=== PATIENT | female | born 1945 | race Caucasian/White ===

== ENCOUNTER 2017-09-07 02:16 | Inpatient (IN) ==
--- NOTE | 2017-09-07 02:48 | Emergency Department Note ---
Abdominal Pain HPI - General Chief Complaint: Abdominal Pain Stated Complaint: abdominal pain Time Seen by Provider: 09/07/17 02:45 Source: patient Mode of arrival: ambulatory Limitations: no limitations - History of Present Illness HPI Narrative: Has had abdominal pain midepigastric area for about 24 hours now. Occasionally radiates to the back, states she had similar pain which had pancreatitis only that she had gallstone pancreatitis and her gallbladder now is gone. Slight nausea but no vomiting, denies diarrhea had a bowel movement about 20 minutes ago, not bloody no history of any fevers, pain became increasingly uncomfortable she took one half of her oxycodone tablets but still did not help with the pain. No chest pain no shortness of breath, she does have a history of A. fib - Related Data Home Medications Medication Instructions Recorded Confirmed cholecalciferol (vitamin D3) 2,000 2,000 unit PO QDAY tab 04/25/15 05/21/17 unit tablet cyanocobalamin (vit B-12) 1,000 1,000 mcg PO QDAY tab 04/25/15 05/21/17 mcg tablet digoxin 125 mcg tablet 125 mcg PO .COMPLEX tab 04/25/15 07/23/17 Warfarin [Coumadin] 2.5 mg PO QDAY tab 11/15/16 07/23/17 doxazosin 1 mg tablet 1 mg PO QHS 04/28/17 07/23/17 furosemide 20 mg tablet 20 mg PO QDAY 04/28/17 07/23/17 metformin ER 500 mg 500 mg PO QDAY 04/28/17 07/23/17 tablet,extended release 24 hr potassium chloride ER 10 mEq 10 meq PO QDAY 04/28/17 07/23/17 capsule,extended release pramipexole 0.25 mg tablet 0.125 mg PO BID tab 04/28/17 07/23/17 ferrous sulfate ER 325 mg (65 mg 325 mg PO QDAY cap 05/21/17 07/23/17 iron) capsule,extended release Previous Rx's Medication Instructions Recorded omega 9-vlw-wex-fish oil 1,200 mg 2 cap PO BID 90 Days #360 cap 10/10/15 (144 mg-216 mg) capsule pen needle, diabetic 31 gauge x See Dose Instructions .ROUTE 09/10/1603/18" .MEDSUPPLY #50 each lancets See Dose Instructions .ROUTE 12/03/16 .MEDSUPPLY #50 each blood sugar diagnostic strips See Dose Instructions .ROUTE 04/03/17 .MEDSUPPLY #100 each carvedilol 6.25 mg tablet 6.25 mg PO BID #180 tab 05/02/17 escitalopram 10 mg tablet 5 mg PO .qod #90 tab 05/21/17 amlodipine 5 mg-olmesartan 20 mg 1 tab PO QDAY #60 tab 05/22/17 tablet insulin glargine 100 unit/mL (3 60 unit SUB-Q QHS #21 ml 05/26/17 mL) subcutaneous pen fenofibrate 160 mg tablet 160 mg PO QDAY #90 tab 05/30/17 omeprazole 20 mg capsule,delayed 20 mg PO QDAY 90 Days #90 cap 06/03/17 release ezetimibe 10 mg tablet 10 mg PO QDAY #90 tab 06/23/17 newatj-ckcbhhrz-anhqkhw 1 cap PO TID #240 cap 07/23/17 24,000-76,000-120,000 unit capsule,delayed rel glipizide 10 mg tablet 15 mg PO QDAY #90 tab 07/29/17 Allergies Allergy/AdvReac Type Severity Reaction Status Date / Time Pxwpvky-Chu-Qeg Reductase AdvReac Severe Myalgias Verified 09/07/17 02:20 Inhibitor lisinopril AdvReac Intermediate cough Verified 09/07/17 02:20 Sulfa (Sulfonamide AdvReac Mild Rash Verified 09/07/17 02:20 Antibiotics) Review of Systems All systems ED: reviewed and negative except as stated. Abdominal Pain PMH - Past Medical History Medical history: Reports: arthritis, atrial fibrillation, diabetes, hypertension Surgical history ED: Reports: appendectomy, cholecystectomy, hysterectomy, knee replacement, orthopedic, other - Social History Smoking status: Never smoker Alcohol use: Reports: None Drug use: Reports: none Physical Exam Limitations: no limitations General appearance: alert, in no apparent distress Head: atraumatic, normocephalic Eye: Present: normal appearance, PERRL, EOMI. Absent: scleral icterus, conjunctival injection, nystagmus ENT: normal exam, normal oropharynx, mucous membranes moist Neck: Present: normal inspection, full ROM, trachea midline. Absent: tenderness , meningismus Chest: Present: normal inspection, symmetric chest wall rise Respiratory: Present: normal lung sounds bilaterally. Absent: respiratory distress Cardiovascular: Present: regular rate, normal rhythm Abdominal: Present: soft, tenderness, guarding, normal bowel sounds. Absent: distention, rebound Abdominal tenderness: Present: epigastrium, mild Extremities: Present: normal inspection, full ROM, normal capillary refill Back: Present: normal inspection. Absent: CVA tenderness (R), CVA tenderness (L ) Neurological: Present: alert, oriented X3, CN II-XII intact Psychiatric: Present: normal affect Skin: Present: warm, dry, intact. Absent: rash Course Vital Signs Temperature 96.9 F L 09/07/17 02:17 Pulse Rate 88 09/07/17 02:17 Respiratory Rate 20 09/07/17 02:17 Blood Pressure 133/111 09/07/17 02:17 Pulse Oximetry (%) 98 09/07/17 02:17 Temperature 96.9 F L 09/07/17 02:17 Pulse Rate 88 09/07/17 02:17 Respiratory Rate 20 09/07/17 02:17 Blood Pressure 133/111 09/07/17 02:17 Pulse Oximetry (%) 98 09/07/17 02:17 Abdominal Pain - MDM Narrative Medical decision making narrative: The pain was resolved with 2 mg of morphine. She does state that she ate some food yesterday including some meatballs for lunch. She does have pancreatitis with a lipase of over 800. Repeat abdominal exam does still reveal some midepigastric abdominal tenderness consistent with her pancreatitis. Plan is nothing by mouth status with her pancreatitis, IV fluids, glucose management. Follow-up ultrasound when available. Discussed with Dr. Cannon. - Lab Data Result diagrams: 09/07/17 02:40 09/07/17 02:40 Lab Results 09/07/17 09/07/17 09/07/17 Range/Units 02:40 02:40 02:40 WBC 9.6 (4.5-11.0) K/mcL RBC 4.91 (4.00-5.20) M/mcL Hgb 14.0 (12.0-15.0) g/dL Hct 42.1 (36.0-48.0) % MCV 85.8 (80.0-100.0) fL MCH 28.5 (26.0-34.0) pg MCHC 33.2 (31.0-36.0) g/dL RDW 13.4 (11.5-14.5) % Plt Count 271 (140-440) K/mcL MPV 9.4 (7.4-10.4) fL Gran % 65.1 (38.0-78.0) % Lymph % (Auto) 23.4 (15.5-49.0) % [place] % (Auto) 8.3 (1.0-12.0) % Eos % (Auto) 2.9 (0.0-7.0) % Baso % (Auto) 0.3 (0.0-2.0) % Gran # 6.2 (1.8-8.0) K/mcL Lymph # (Auto) 2.2 (1.5-4.8) K/mcL [place] # (Auto) 0.8 (0.1-0.9) K/mcL Eos # (Auto) 0.3 (0.0-0.7) K/mcL Baso # (Auto) 0 (0.0-0.3) K/mcL Sodium 135 (133-145) mmol/L Potassium 4.0 (3.3-5.1) mmol/L Chloride 98 (96-108) mmol/L Carbon Dioxide 23 (22-30) mmol/L Anion Gap 14.0 (8-16) BUN 15 (8-23) mg/dl Creatinine 0.6 (0.6-1.1) mg/dl GFR Calculation 92 Glucose 212 H (70-105) mg/dL Calcium 9.5 (8.6-10.4) mg/dl Total Bilirubin 0.6 (0.0-1.0) mg/dL AST 17 (0-37) U/l ALT 24 (0-40) U/l Alkaline Phosphatase 41 (39-117) U/L C-Reactive Protein 0.8 (0.0-0.8) mg/dl Total Protein 6.8 (5.9-8.4) gm/dL Albumin 4.1 (3.2-5.2) gm/dL Globulin 2.7 (2.2-3.7) gm/dL Albumin/Globulin Ratio 1.5 (1.0-2.3) Amylase 160 H (28-100) U/L Lipase 807 H (7-60) U/L Urine Color Urine Appearance Urine pH (5.0-9.0) Ur Specific [place] (1.000-1.035) Urine Protein (NEG) mg/dL Urine Glucose (UA) (NEG) mg/dL Urine Ketones (NEG) mg/dL Urine Occult Blood (<0.03) mg/dL Urine Nitrate (NEG) Urine Bilirubin (NEG) mg/dL Urine Urobilinogen (NEG) mg/dL Ur Leukocyte Esterase (NEG) /uL Urine RBC (0-1) /hpf Urine WBC (0-4) /hpf Ur Squamous Epith Cells (0-4) /hpf Ur Transition Epith Cell (0-2) /hpf Urine Bacteria (0) /hpf Urine Mucus (0) /hpf Ur Culture Indicated? 09/07/17 Range/Units 03:10 WBC (4.5-11.0) K/mcL RBC (4.00-5.20) M/mcL Hgb (12.0-15.0) g/dL Hct (36.0-48.0) % MCV (80.0-100.0) fL MCH (26.0-34.0) pg MCHC (31.0-36.0) g/dL RDW (11.5-14.5) % Plt Count (140-440) K/mcL MPV (7.4-10.4) fL Gran % (38.0-78.0) % Lymph % (Auto) (15.5-49.0) % [place] % (Auto) (1.0-12.0) % Eos % (Auto) (0.0-7.0) % Baso % (Auto) (0.0-2.0) % Gran # (1.8-8.0) K/mcL Lymph # (Auto) (1.5-4.8) K/mcL [place] # (Auto) (0.1-0.9) K/mcL Eos # (Auto) (0.0-0.7) K/mcL Baso # (Auto) (0.0-0.3) K/mcL Sodium (133-145) mmol/L Potassium (3.3-5.1) mmol/L Chloride (96-108) mmol/L Carbon Dioxide (22-30) mmol/L Anion Gap (8-16) BUN (8-23) mg/dl Creatinine (0.6-1.1) mg/dl GFR Calculation Glucose (70-105) mg/dL Calcium (8.6-10.4) mg/dl Total Bilirubin (0.0-1.0) mg/dL AST (0-37) U/l ALT (0-40) U/l Alkaline Phosphatase (39-117) U/L C-Reactive Protein (0.0-0.8) mg/dl Total Protein (5.9-8.4) gm/dL Albumin (3.2-5.2) gm/dL Globulin (2.2-3.7) gm/dL Albumin/Globulin Ratio (1.0-2.3) Amylase (28-100) U/L Lipase (7-60) U/L Urine Color Yellow Urine Appearance Hazy Urine pH 7.0 (5.0-9.0) Ur Specific [place] 1.025 (1.000-1.035) Urine Protein Neg (NEG) mg/dL Urine Glucose (UA) 150 A (NEG) mg/dL Urine Ketones 5/tr A (NEG) mg/dL Urine Occult Blood Neg (<0.03) mg/dL Urine Nitrate Neg (NEG) Urine Bilirubin Neg (NEG) mg/dL Urine Urobilinogen 2.0 A (NEG) mg/dL Ur Leukocyte Esterase Neg (NEG) /uL Urine RBC 0 (0-1) /hpf Urine WBC 3 (0-4) /hpf Ur Squamous Epith Cells 9 H (0-4) /hpf Ur Transition Epith Cell < 1 (0-2) /hpf Urine Bacteria Few A (0) /hpf Urine Mucus Few (0) /hpf Ur Culture Indicated? No Disposition Pt seen by DEVELOPMENT EXECUTIVE/PA only: No Clinical Impression: Pancreatitis Disposition: Xfer As Outpt/Obs ([facility]) Condition: Good Referrals: Prakash Hernandez MD [Primary Care Provider] -
[2017-09-07] MEDS ORDERED: ONDANSETRON 4 MG/2 ML VIAL IV ONE (02:51)
[2017-09-07] MEDS ORDERED: PANTOPRAZOLE 40 MG VIAL IV ONE (02:51)
[2017-09-07] MEDS ORDERED: LACTATED RINGERS 1,000 ML IV ONE (02:53)
[2017-09-07 03:12] LABS: Basophils # (Auto) 0 K/mcL (0.0-0.3); Basophils % (Auto) 0.3 % (0.0-2.0); Eosinophils # (Auto) 0.3 K/mcL (0.0-0.7); Eosinophils % (Auto) 2.9 % (0.0-7.0); Granulocytes % (Auto) 65.1 % (38.0-78.0); Lymphocytes # (Auto) 2.2 K/mcL (1.5-4.8); Lymphocytes % (Auto) 23.4 % (15.5-49.0); Mean Cell Volume 85.8 fL (80.0-100.0); Mean Corpuscular HGB Conc 33.2 g/dL (31.0-36.0); Mean Corpuscular Hemoglobin 28.5 pg (26.0-34.0); Monocytes # (Auto) 0.8 K/mcL (0.1-0.9); Monocytes % (Auto) 8.3 % (1.0-12.0); Platelet Count 271 K/mcL (140-440); RBC 4.91 M/mcL (4.00-5.20); Red Cell Distribution Width 13.4 % (11.5-14.5)
[2017-09-07 03:32] LABS: C-Reactive Protein 0.8 mg/dl (0.0-0.8)
[2017-09-07 03:33] LABS: ALT/SGPT 24 U/l (0-40); Albumin 4.1 gm/dL (3.2-5.2); Albumin/Globulin Ratio 1.5 (1.0-2.3); Alkaline Phosphatase 41 U/L (39-117); Blood Urea Nitrogen 15 mg/dl (8-23)
[2017-09-07 03:47] LABS: Appearance,Urine HAZY; Bacteria,Urine FEW /hpf (0); Bilirubin,Urine NEG (NEG); Color,Urine YELLOW; Glucose,Urine (UA) 150 mg/dL (NEG); Leukocyte Esterase,Urine NEG /uL (NEG); Mucus,Urine FEW /hpf (0); Nitrate,Urine NEG (NEG); Protein,Urine NEG (NEG); Specific Gravity,Urine 1.025 (1.000-1.035); Urine Blood NEG mg/dL (<0.03); Urine RBC 0 /hpf (0-1); Urine Squamous Epithelial Cell 9 /hpf (0-4); Urine Transitional Epi Cells < 1 /hpf (0-2); Urine WBC 3 /hpf (0-4)
[2017-09-07] MEDS ORDERED: NALOXONE HCL 0.4 MG/ML VIAL IV PRN (05:10)
[2017-09-07] MEDS ORDERED: LACTATED RINGERS 1,000 ML IV SCH (05:15)
[2017-09-07] MEDS ORDERED: IOPAMIDOL 100 ML BOTTLE IV ONE (05:31)
[2017-09-07] MEDS ORDERED: CALCIUM CARBONATE 500 MG TAB.CHEW CHEWED PRN (07:12)
[2017-09-07] MEDS ORDERED: ONDANSETRON 4 MG/2 ML VIAL IV PRN ×2 (07:12→07:26)
[2017-09-07] MEDS ORDERED: DOCUSATE SODIUM 100 MG CAPSULE PO PRN (07:12)
[2017-09-07] MEDS ORDERED: ACETAMINOPHEN 325 MG TABLET PO PRN (07:12)
[2017-09-07] MEDS ORDERED: MAGNESIUM HYDROXIDE 30 ML ORAL.SUSP PO PRN (07:12)
[2017-09-07] MEDS ORDERED: DEXTROSE 50% 50 ML VIAL IV PRN (07:12)
--- NOTE | 2017-09-07 07:35 | Internal Med History&Physical ---
Medical - H&P: HPI Patient information: Note initiated : 09/07/17 at 7:30 am Service Date, if different from initiated Date: [] Patient: Shweta Rodriguez 71 y/o F admitted on 09/07/17 for abdominal pain. Chief Complaint: [] History of present illness: Ms. Rodriguez is a 71 year old female with history of multiple chronic medical problems. She says she had an episode of pancreatitis 4 or 5 years ago, that was reportedly caused by stones. She had a pancreatic stent placed and what she describes as lithotripsy. She then had a stent removed, but suffered in laceration at that time which led to bacteremia. She says she has not had another episode of pancreatitis since then. Yesterday she was at a wedding, and began to experience epigastric discomfort. This continued to progress over the course of the evening, so she presented to the emergency room early this morning. She has had significant nausea but no vomiting. She denies fever or chills. She has felt a little bit dizzy. Otherwise she notes chronically blurry vision, which is unchanged. She also tends to have chronic direct diarrhea since her cholecystectomy, but says that has been better since she has been treated with oxycodone for her ankle. 7 weeks ago she had surgery on her Achilles tendon, and has had her foot in a boot ever since. She notes she does have some mild dyspnea with exertion when trying to drag around the boot. She denies fever or chills, headaches, new eye or ear symptoms, swollen glands, chest pain or palpitations, changes in breathing, dysuria. ER evaluation showed markedly elevated lipase. She is now admitted for bowel rest and IV fluids. As well as pain medications. Medical History Mild obstructive sleep apnea, June/2017 Anemia (Chronic 12/13/14) low iron stores, ferritin 32, advised replacement Atrial fibrillation (Chronic) Chronic insomnia (Chronic) Depression (Chronic) -No ssri due to coumadin interactions. Diabetes mellitus, type II (Chronic) Diarrhea (Chronic) Gastroesophageal reflux (Chronic 11/17/13) Hypercalcemia (Chronic) Hyperlipidemia (Chronic) unable to tolerate statin. Hypertension, essential, benign (Chronic) Insomnia (Chronic 12/13/14) Menopausal and postmenopausal disorder (Chronic) Pancreatitis (Chronic 11/17/13) acute on chronic duct stones, increase creon for now. Postsurgical nonabsorption (Chronic) MALABSORPTION POST LAP-TAI Uncontrolled diabetes mellitus (Chronic) Abdominal pain of multiple sites (Inactive) 04/07/2015-Trinh, much better, Vasculitis panel neg, esr crp neg. Ankle fracture, left (Inactive) DVT (deep venous thrombosis) (Inactive 11/17/13) PROPHALYXIS Leukocytosis (Inactive) 04/07/15 Trinh Weight gain (Inactive 12/13/14) Surgical History History of adenoidectomy (Inactive) History of appendectomy (Inactive) History of cholecystectomy (Inactive) History of colonoscopy (Inactive 04/11/15) colitis involving only the cecum History of hysterectomy (Inactive) History of left knee replacement (Inactive) History of open reduction and internal fixation (ORIF) procedure (Inactive) L ANKLE History of tonsillectomy (Inactive) Status post arthroscopic surgery of right knee (Inactive) Medication List amlodipine-olmesartan 5-20 mg 1 tab PO QDAY blood sugar diagnostic strips (Accu-Chek SmartView Test Strips) As directed, Test blood sugars once daily carvedilol 6.25 mg PO BID cholecalciferol (vitamin D3) 2,000 units PO QDAY cyanocobalamin (vit B-12) 1,000 mcg PO QDAY digoxin 125 mcg PO 1 per day skip FRIDAY doxazosin 1 mg PO QHS escitalopram 5 mg (1/2 x 10 mg) PO .qod ezetimibe (Zetia) 10 mg PO QDAY fenofibrate 160 mg PO QDAY ferrous sulfate ER 325 mg PO QDAY furosemide 20 mg PO QDAY glipizide (Glucotrol) 10 mg PO BID 90 days glipizide Take one tablet in the morning and 0.5 mg in the evening by mouth. insulin glargine (Lantus Solostar) 60 units (0.6 mL) Sub-Q QHS lancets use once a day mdwcxf-ihszhhjo-gvuixjb 24,000-76,000 -120,000 unit 1 cap PO BID metformin ER 500 mg PO QDAY omega 2-ahb-dus-fish oil 1,200 (144-216) mg 2 caps PO BID 90 days omeprazole 20 mg PO QDAY 90 days potassium chloride ER 10 mEq PO QDAY pramipexole 0.125 mg PO BID warfarin 2.5 mg PO QDAY Allergies/Adverse Reactions Zmuwjpn-Yjg-Xdm Reductase Inhibitor Adverse Reaction (Severe, Verified 07/23/17 10:43) Myalgias lisinopril Adverse Reaction (Intermediate, Verified 07/23/17 10:43) cough Sulfa (Sulfonamide Antibiotics) Adverse Reaction (Mild, Verified 07/23/17 10:43) Rash Family History Unknown Malignant neoplasm of breast Mother , 79 Chronic obstructive pulmonary disease Father of unknown cause bio unknown Social History The patient is and lives with her . She has lots of family in town. She was at the wedding of 1 of her daughters yesterday. She does not use tobacco, alcohol, drugs. Medical - H&P: Meds Home Medications Medication Instructions Recorded Confirmed Type cholecalciferol (vitamin D3) 2,000 2,000 unit PO QDAY tab 04/25/15 09/07/17 History unit tablet cyanocobalamin (vit B-12) 1,000 1,000 mcg PO QDAY tab 04/25/15 09/07/17 History mcg tablet digoxin 125 mcg tablet 125 mcg PO 1700 tab 04/25/15 09/07/17 History omega 8-pvc-zbt-fish oil 1,200 mg 2 cap PO BID 90 Days #360 cap 10/10/15 Rx (144 mg-216 mg) capsule Warfarin [Coumadin] 2.5 mg PO QDAY tab 11/15/16 09/07/17 History doxazosin 1 mg tablet 1 mg PO QHS 04/28/17 09/07/17 History furosemide 20 mg tablet 20 mg PO QDAY 04/28/17 09/07/17 History metformin ER 500 mg 500 mg PO QDAY 04/28/17 09/07/17 History tablet,extended release 24 hr potassium chloride ER 10 mEq 10 meq PO QDAY 04/28/17 09/07/17 History capsule,extended release pramipexole 0.25 mg tablet 0.125 mg PO HS tab 04/28/17 09/07/17 History carvedilol 6.25 mg tablet 6.25 mg PO BID #180 tab 05/02/17 09/07/17 Rx ferrous sulfate ER 325 mg (65 mg 325 mg PO QDAY cap 05/21/17 09/07/17 History iron) capsule,extended release amlodipine 5 mg-olmesartan 20 mg 1 tab PO QDAY #60 tab 05/22/17 09/07/17 Rx tablet insulin glargine 100 unit/mL (3 60 unit SUB-Q QHS #21 ml 05/26/17 09/07/17 Rx mL) subcutaneous pen fenofibrate 160 mg tablet 160 mg PO QDAY #90 tab 05/30/17 09/07/17 Rx ezetimibe 10 mg tablet 10 mg PO QDAY #90 tab 06/23/17 09/07/17 Rx goqnau-bigdrdvz-ownsygx 1 cap PO TID #240 cap 07/23/17 09/07/17 Rx 24,000-76,000-120,000 unit capsule,delayed rel Escitalopram Oxalate [Lexapro] 5 mg PO QDAY 09/07/17 09/07/17 History Omeprazole [Prilosec] 20 mg PO 1700 09/07/17 09/07/17 History glipiZIDE [Glucotrol] 5 mg PO HS 09/07/17 09/07/17 History glipiZIDE [Glucotrol] 10 mg PO QDAY 09/07/17 09/07/17 History Allergies Allergy/AdvReac Type Severity Reaction Status Date / Time Lkytfhg-Oth-Ars Reductase AdvReac Severe Myalgias Verified 09/07/17 02:20 Inhibitor lisinopril AdvReac Intermediate cough Verified 09/07/17 02:20 Sulfa (Sulfonamide AdvReac Mild Rash Verified 09/07/17 02:20 Antibiotics) Medical - H&P: Exam - Constitutional Vitals: Temp Pulse Resp BP Pulse Ox 98.8 F 75 16 132/88 94 09/07/17 07:19 09/07/17 07:19 09/07/17 07:19 09/07/17 07:19 09/07/17 07:19 On exam, she is a little bit diaphoretic. She notes the IV morphine makes her feel clammy. It does help her pain however. Head: Normocephalic, atraumatic. Ears: TMs and canals are clear. Eyes: PERRLA, EOMI, anicteric. Pharynx: Pharynx is clear. Mucosa appears normal. Neck: Is supple, without lymphadenopathy, JVD, thyromegaly. She may have soft carotid bruits. Cardiac exam: Shows regular rate and rhythm with normal S1 and S2, without murmurs, rubs, gallops. Lungs have a few crackles at the bases, but are otherwise clear, without rales or rhonchi. Abdomen: Is obese, but soft. She does have some guarding. She has moderate tenderness in the epigastric area. Bowel sounds are fairly active. No masses are appreciated. Extremities: Show no significant edema, cyanosis, clubbing. Neurologic exam: Is grossly nonfocal. Medical - H&P: Reslt - Labs CBC & Chem 7: 09/07/17 02:40 09/07/17 11:48 Labs: Short CBC 09/07/17 Range/Units 02:40 WBC 9.6 (4.5-11.0) K/mcL Hgb 14.0 (12.0-15.0) g/dL Hct 42.1 (36.0-48.0) % Plt Count 271 (140-440) K/mcL BMP 09/07/17 02:40 Sodium 135 Potassium 4.0 Chloride 98 Carbon Dioxide 23 BUN 15 Creatinine 0.6 Glucose 212 H Calcium 9.5 Liver Function 09/07/17 Range/Units 02:40 Total Bilirubin 0.6 (0.0-1.0) mg/dL AST 17 (0-37) U/l ALT 24 (0-40) U/l Alkaline Phosphatase 41 (39-117) U/L Albumin 4.1 (3.2-5.2) gm/dL Urine 09/07/17 Range/Units 03:10 Urine Color Yellow Urine Appearance Hazy Urine pH 7.0 (5.0-9.0) Ur Specific [place] 1.025 (1.000-1.035) Urine Protein Neg (NEG) mg/dL Urine Glucose (UA) 150 A (NEG) mg/dL September 07: Abdominal ultrasound: IMPRESSION: 1. Proximal common bile duct is only slightly dilated 7 mm. Mid and distal common bile duct not visualized. 2. Suspect moderate dilatation of pancreatic duct ranging up to 9 mm with two possible stones , six and 8 mm, within the duct. Visualization is suboptimal on ultrasound. If the patient still has a pancreatic stent, it may not be functional. Suggest: abdominal CT - pancreatic protocol for more specific evaluation. Pro time: 18, INR is 1.5. Amylase 160 Lipase 807 Echocardiogram, 10, 25, 2016: CONCLUSION: Mild concentric LVH with normal systolic performance. Ejection fraction 65%. Mitral anular calcification. Moderate LA enlargement. Minimal and probably passive pulmonary hypertension/moderate RA enlargement. Medical - H&P: A/P (1) Acute on chronic pancreatitis Current visit: Yes Status: Acute (2) Uncontrolled diabetes mellitus Current visit: No Status: Chronic (3) Hypertension, essential, benign Problem details: Current visit: No Status: Chronic (4) Hyperlipidemia Problem details: unable to tolerate statin. Current visit: No Status: Chronic (5) Atrial fibrillation Current visit: No Status: Chronic - Narrative A/P Narrative: #1. GI. She presents with abdominal pain. Workup is consistent with acute pancreatitis. -Admit to observation. -Bowel rest, IV fluids. -IV pain and nausea meds. -Abdominal ultrasound today suggestive of possible pancreatic stones. I will order a CT to look into this further.. -Continue pancreatic enzyme supplements when resumes p.o.. -Hold possibly aggravating medications: Amlodipine, olmesartan, Zetia, fenofibrate, Lasix, glipizide, metformin -GERD. Change oral omeprazole to IV Protonix. 2. Endocrine. Type 2 diabetes. -Every 6 Accu-Cheks and sliding scale, while n.p.o. -Hold Glucotrol, metformin. -Give reduced dose Lantus. 3. Cardiac. History of atrial fibrillation. Monitor heart rate. Check digoxin level. Continue digoxin. Chronic anticoagulation therapy. Monitor INR. Coumadin per pharmacy. 4. CODE STATUS: full code. 5. DVT prophylaxis: Continue Coumadin. 6. History of chronic anemia. 7. History of insomnia. Patient was also recently diagnosed with obstructive sleep apnea. 8. Hypertension. Continue Coreg for now. Hold amlodipine/olmesartan. Monitor blood pressures. 9. History of depression. Continue Lexapro. 10. Obesity. Consider discontinuing Glucotrol as this is probably contributing. Pursue regular exercise program. Approximately 60 minutes was spent today, reviewing the case with the ER MD, reviewing her old records and test results, interviewing and examining her, and writing orders. Medical - H&P: Qual - Stroke Symptom Onset Unknown: No - VTE Deep Vein Thrombosis/Pulmonary Embolism Present on Admission: No
[2017-09-07] MEDS: LACTATED RINGERS 1,000 ML IV SCH ×3 (08:26→23:34)
[2017-09-07] MEDS: ESCITALOPRAM 10 MG TABLET PO SCH (09:07)
[2017-09-07] MEDS: PANTOPRAZOLE 40 MG VIAL IV SCH (09:08)
[2017-09-07] MEDS: CARVEDILOL 6.25 MG TABLET PO SCH ×2 (09:08→20:06)
[2017-09-07] MEDS: LIPASE/PROTEASE/AMYLASE 1 CAP CAPSULE PO SCH ×3 (09:10→16:53)
--- NOTE | 2017-09-07 10:02 | Ultrasound Report ---
CLINICAL INFORMATION: History of pancreatitis. Evaluate common bile duct COMPARISON: None. FINDINGS: Gallbladder is surgically absent. Only the proximal common bile duct is visualized and appears to be only slightly dilated 7 mm. The liver is markedly echogenic compatible with fatty change - previously noted on CT. No focal hepatic lesions. The pancreatic duct appears to be dilated ranging up to 9 mm. There are two possible stones within the proximal pancreatic duct, eight and 6 mm, respectively. Visualization is suboptimal IMPRESSION: 1. Proximal common bile duct is only slightly dilated 7 mm. Mid and distal common bile duct not visualized 2. Suspect moderate dilatation of pancreatic duct ranging up to 9 mm with two possible stones , six and 8 mm, within the duct. Visualization is suboptimal on ultrasound. If the patient still has a pancreatic stent, it may not be functional. Suggest: abdominal CT - pancreatic protocol for more specific evaluation. Interpreted and Authenticated by: Remberto Henriquez 09/07/17
[2017-09-07] MEDS: INSULIN GLARGINE, HUMAN 1 UNIT/0.01 ML SQ SCH ×2 (10:11→20:08)
[2017-09-07] MEDS: INSULIN LISPRO 1 UNIT/0.01 ML UNIT SQ SCH ×2 (12:28→17:38)
[2017-09-07 12:52] LABS: ALT/SGPT 20 U/l (0-40); Albumin 3.3 gm/dL (3.2-5.2); Albumin/Globulin Ratio 1.2 (1.0-2.3); Alkaline Phosphatase 35 U/L (39-117); Bilirubin,Direct < 0.2 mg/dL (0.0-0.3); Blood Urea Nitrogen 14 mg/dl (8-23); Gamma Glutamyl Transpeptidase 23 U/L (5-36); Magnesium 1.5 mg/dL (1.6-2.5); Uric Acid 3.5 mg/dL (2.5-8.0)
[2017-09-07] MEDS ORDERED: WARFARIN 2.5 MG TABLET PO ONE (14:00)
[2017-09-07] MEDS: 0.9 % SODIUM CHLORIDE 10 ML SYRINGE IV SCH ×2 (14:33→20:05)
--- NOTE | 2017-09-07 18:00 | Cat Scan Report ---
CLINICAL INFORMATION: Epigastric pain. COMPARISON: 04/11/[address] TECHNIQUE: Water was used as an enteric agent. 2.5 mm precontrast images were obtained from the diaphragm to the mid kidneys. 90 cc of Isovue-300 was then injected with 2.5 mm images were repeated through the upper abdomen at 20 and 60 seconds. After five minute delay, 5 mm helical slices were obtained through the kidneys. Axial, sagittal and coronal reformatted images were processed and reviewed at bone and soft tissue windows FINDINGS: Lung bases show no abnormality - no effusion. Small hiatal hernia is noted. The heart is mildly enlarged. Images through the abdomen show mild fatty changes within the liver, but no focal lesions. The gallbladder is surgically absent. There is mild dilatation of intrahepatic, common hepatic and common bile duct: The common bile duct diameter is 7.5 mm. This is stable. There is a 7 mm stone in the proximal portion of Wirsung's pancreatic duct resulting in moderate upstream duct dilatation (9 mm diameter). In the midportion of Santorini duct, there is a second 5 mm stone. Four tiny calcifications within the pancreatic parenchyma in the body region are likely related to chronic plaque recurrent pancreatitis. There is mild injection the peripancreatic fat planes suggesting active pancreatic inflammation. 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 This was also seen on the previous study is unchanged. Both kidneys, adrenal glands, spleen and aorta are normal in size, configuration and attenuation without focal lesion. There is a 15 mm focal calcified atherosclerotic plaque with a small penetrating ulceration in the right lateral wall the distal celiac artery which is stable. No free air, free fluid and no adenopathy. The stomach and visualized small large bowel are normal. Bone windows chronic bilateral L5-S1 spondylolysis with grade 1 spondylolisthesis resulting in severe bilateral IV foraminal narrowing impinging exiting L5 nerve roots. This is unchanged. No other osseous normality IMPRESSION: 7 mm stone within the proximal Wirsung's duct - less than 1 cm from the ampulla. This has resulted in marked dilatation of the upstream pancreatic duct (nine mm diameter). There is a second 5 mm stone located in Santorini duct within the mid pancreatic body. Mild injection of the peripancreatic fat planes are compatible simple pancreatitis. There is no evidence of necrosis, abscess or other significant complication. 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 Interpreted and Authenticated by: Remberto Henriquez 09/07/17
[2017-09-07] MEDS: HEPARIN 5,000 UNIT/ML VIAL SQ SCH (20:57)
[2017-09-07] MEDS ORDERED: PRAMIPEXOLE 0.25 MG TABLET PO SCH (21:00)
[2017-09-07] MEDS ORDERED: DOXAZOSIN 1 MG TABLET PO SCH (21:00)
[2017-09-08] MEDS: INSULIN LISPRO 1 UNIT/0.01 ML UNIT SQ SCH ×3 (00:02→11:44)
[2017-09-08 05:45] LABS: Basophils # (Auto) 0 K/mcL (0.0-0.3); Basophils % (Auto) 0.5 % (0.0-2.0); Eosinophils # (Auto) 0.3 K/mcL (0.0-0.7); Eosinophils % (Auto) 3.4 % (0.0-7.0); Granulocytes % (Auto) 65.3 % (38.0-78.0); Lymphocytes # (Auto) 2.1 K/mcL (1.5-4.8); Lymphocytes % (Auto) 23.9 % (15.5-49.0); Mean Cell Volume 86.1 fL (80.0-100.0); Mean Corpuscular HGB Conc 33.1 g/dL (31.0-36.0); Mean Corpuscular Hemoglobin 28.5 pg (26.0-34.0); Monocytes # (Auto) 0.6 K/mcL (0.1-0.9); Monocytes % (Auto) 6.9 % (1.0-12.0); Platelet Count 230 K/mcL (140-440); RBC 4.49 M/mcL (4.00-5.20)
[2017-09-08 06:03] LABS: ALT/SGPT 21 U/l (0-40); Albumin 3.4 gm/dL (3.2-5.2); Albumin/Globulin Ratio 1.4 (1.0-2.3); Alkaline Phosphatase 35 U/L (39-117); Bilirubin,Direct < 0.2 mg/dL (0.0-0.3); Blood Urea Nitrogen 11 mg/dl (8-23); Gamma Glutamyl Transpeptidase 24 U/L (5-36); Lipase 124 U/L (7-60); Magnesium 1.5 mg/dL (1.6-2.5); Uric Acid 4.1 mg/dL (2.5-8.0)
[2017-09-08] MEDS: 0.9 % SODIUM CHLORIDE 10 ML SYRINGE IV SCH ×2 (06:04→13:46)
[2017-09-08 06:10] LABS: Amylase 49 U/L (28-100)
[2017-09-08] MEDS: PANTOPRAZOLE 40 MG VIAL IV SCH (07:43)
[2017-09-08] MEDS: LACTATED RINGERS 1,000 ML IV SCH (07:44)
[2017-09-08] MEDS: LIPASE/PROTEASE/AMYLASE 1 CAP CAPSULE PO SCH ×2 (07:45→11:44)
[2017-09-08] MEDS: ESCITALOPRAM 10 MG TABLET PO SCH (09:21)
[2017-09-08] MEDS: CARVEDILOL 6.25 MG TABLET PO SCH (09:22)
[2017-09-08] MEDS: INSULIN GLARGINE, HUMAN 1 UNIT/0.01 ML SQ SCH (09:22)
[2017-09-08] MEDS: HEPARIN 5,000 UNIT/ML VIAL SQ SCH (09:23)
--- NOTE | 2017-09-08 11:27 | Transfer Summary ---
Transfer Discharge Sum: Prov Patient information: Note initiated : 09/08/17 at 11:27 am Service Date, if different from initiated Date: [] Patient: Shweta Rodriguez 71 y/o F admitted on 09/07/17 for Abdominal Pain/ Pancreatitis. Chief Complaint: [] Date of admission: 09/07/17 11:33 Discharge Date: 09/08/17 Primary care physician: Corbin Hernandez Admitting clinician: Lana Pittman Consults: 09/07/17 05:08 Consult to Physician [CONS] Stat Comment: Consulting Provider: Lana Pittman Reason For Exam: Physician to Consult Discharging clinician: Srinivasan Vigil Receiving physician/facility: Dr Scotty Anderson Hospitalist. Transfer Discharge Sum: Med - Medications Active and Home Medications: Home Medications cholecalciferol (vitamin D3) 2,000 unit tablet 2,000 unit PO QDAY tab 04/25/15 [History Confirmed 09/07/17] cyanocobalamin (vit B-12) 1,000 mcg tablet 1,000 mcg PO QDAY tab 04/25/15 [ History Confirmed 09/07/17] digoxin 125 mcg tablet 125 mcg PO 1700 tab 04/25/15 [History Confirmed 09/07/17 ] omega 2-wxy-lzc-fish oil 1,200 mg (144 mg-216 mg) capsule 2 cap PO BID 90 Days # 360 cap 10/10/15 [Rx Confirmed 09/07/17] Warfarin [Coumadin] 2.5 mg PO QDAY tab 11/15/16 [History Confirmed 09/07/17] doxazosin 1 mg tablet 1 mg PO QHS 04/28/17 [History Confirmed 09/07/17] furosemide 20 mg tablet 20 mg PO QDAY 04/28/17 [History Confirmed 09/07/17] metformin ER 500 mg tablet,extended release 24 hr 500 mg PO QDAY 04/28/17 [ History Confirmed 09/07/17] potassium chloride ER 10 mEq capsule,extended release 10 meq PO QDAY 04/28/17 [ History Confirmed 09/07/17] pramipexole 0.25 mg tablet 0.125 mg PO HS tab 04/28/17 [History Confirmed 09/07] carvedilol 6.25 mg tablet 6.25 mg PO BID #180 tab 05/02/17 [Rx Confirmed ] ferrous sulfate ER 325 mg (65 mg iron) capsule,extended release 325 mg PO QDAY cap 05/21/17 [History Confirmed 09/07/17] amlodipine 5 mg-olmesartan 20 mg tablet 1 tab PO QDAY #60 tab 05/22/17 [Rx Confirmed 09/07/17] insulin glargine 100 unit/mL (3 mL) subcutaneous pen 60 unit SUB-Q QHS #21 ml [Rx Confirmed 09/07/17] fenofibrate 160 mg tablet 160 mg PO QDAY #90 tab 05/30/17 [Rx Confirmed 09/07/17 ] ezetimibe 10 mg tablet 10 mg PO QDAY #90 tab 06/23/17 [Rx Confirmed 09/07/17] ahgcaf-knccbhwk-ajuqcwe 24,000-76,000-120,000 unit capsule,delayed rel 1 cap PO TID #240 cap 07/23/17 [Rx Confirmed 09/07/17] Escitalopram Oxalate [Lexapro] 5 mg PO QDAY 09/07/17 [History Confirmed 09/07/17 ] Omeprazole [Prilosec] 20 mg PO 1700 09/07/17 [History Confirmed 09/07/17] glipiZIDE [Glucotrol] 5 mg PO HS 09/07/17 [History Confirmed 09/07/17] glipiZIDE [Glucotrol] 10 mg PO QDAY 09/07/17 [History Confirmed 09/07/17] Active Medications Acetaminophen (Tylenol) 650 mg PO Q6HP PRN PRN Reason: PAIN/FEVER > 101 Lipase/Protease/Amylase (Creon) 1 cap PO TIDCC [facility] Last Admin: 09/08/17 07:45 Dose: Not Given Calcium Carbonate/Glycine (Tums) 1,000 mg CHEWED Q4HP PRN PRN Reason: Dyspepsia Carvedilol (Coreg) 6.25 mg PO BID [facility] Last Admin: 09/08/17 09:22 Dose: 6.25 mg Dextrose (Dextrose 50%) 0 ml IV UD PRN PRN Reason: Hypoglycemia Diagnostic Test (Pha) (Accu-Chek) 1 each FS Q6 [facility] Last Admin: 09/08/17 06:03 Dose: 1 each Digoxin (Lanoxin) 125 mcg PO MoTuWeThFrSa@1400 [facility] Docusate Sodium (Colace) 100 mg PO BIDP PRN PRN Reason: Constipation Doxazosin Mesylate (Cardura) 1 mg PO [facility] Last Admin: 09/07/17 20:05 Dose: 1 mg Escitalopram Oxalate (Lexapro) 5 mg PO QDAY [facility] Last Admin: 09/08/17 09:21 Dose: 5 mg Heparin Sodium (Porcine) (Heparin) 5,000 unit SQ Q12 [facility] Last Admin: 09/08/17 09:23 Dose: 5,000 unit Lactated Ringer's (Lactated Ringers) 1,000 mls @ 125 mls/hr IV .Q8H [facility] Last Admin: 09/08/17 07:44 Dose: 125 mls/hr Insulin Glargine (Lantus) 20 unit SQ BID [facility] Last Admin: 09/08/17 09:22 Dose: 20 unit Insulin Human Lispro (Humalog) 0 unit SQ Q6 [facility] PRN Reason: Protocol Last Admin: 09/08/17 06:04 Dose: Not Given Magnesium Hydroxide (Milk Of Magnesia) 30 ml PO DAILYP PRN PRN Reason: Constipation Morphine Sulfate (Morphine) 2 mg IV Q4HP PRN PRN Reason: Pain Last Admin: 09/08/17 10:00 Dose: 2 mg Naloxone HCl (Narcan) 0.1 mg IV Q2MIN PRN PRN Reason: Opiate Reversal Ondansetron HCl (Zofran) 4 mg IV Q4HP PRN PRN Reason: Nausea And Vomiting Pantoprazole Sodium (Protonix) 40 mg IV QAMAC [facility] Last Admin: 09/08/17 07:43 Dose: 40 mg Pramipexole Dihydrochloride (Mirapex) 0.125 mg PO [facility] Last Admin: 09/07/17 20:06 Dose: 0.125 mg Sodium Chloride (Saline Flush) 10 ml IV Q8 [facility] Last Admin: 09/08/17 06:04 Dose: Not Given Warfarin Sodium (Coumadin Per Pharmacy) 1 order PO DAILY@1400 [facility] Last Admin: 09/07/17 14:36 Dose: Not Given Warfarin Sodium (Coumadin) 2.5 mg PO ONCE@1400 ONE Stop: 09/08/17 14:01 Transfer Discharge Sum: Hosp Hospital course: Ms. Rodriguez is a 71 year old female with history of multiple chronic medical problems. She says she had an episode of pancreatitis 4 or 5 years ago, that was reportedly caused by stones. She had a pancreatic stent placed and what she describes as lithotripsy? . She then had a stent removed, but suffered in laceration at that time which led to bacteremia. She says she has not had another episode of pancreatitis since then. The day before admission she was at a wedding, and began to experience epigastric discomfort. This continued to progress over the course of the evening, so she presented to the emergency room early this morning. She has had significant nausea but no vomiting. She denies fever or chills. She has felt a little bit dizzy. Otherwise she notes chronically blurry vision, which is unchanged. She also tends to have chronic direct diarrhea since her cholecystectomy, but says that has been better since she has been treated with oxycodone for her ankle. 7 weeks ago she had surgery on her Achilles tendon, and has had her foot in a boot ever since. She notes she does have some mild dyspnea with exertion when trying to drag around the boot. She denies fever or chills, headaches, new eye or ear symptoms, swollen glands, chest pain or palpitations, changes in breathing, dysuria. ER evaluation showed markedly elevated lipase. She is now admitted for bowel rest and IV fluids. As well as pain medications. The patient was admitted to the hospital for acute pancreatitis. The patient was managed conservatively for her Acute pancreatitis. She continues to have pain in the abdomen which is responding well to IV morphine 2mg q4hr prn. The amylase and lipas are trending down. The patients USG Abdomen and Pancreatic CT showed a stone in the pancreatic duct with dilatation of the pancreatic duct, The stone is a new finding, and the dialation of pancreatic duct is around twice the previous CT Scan. The patient was discussed with Dr Scotty ROBLES at [place] who graciously accepted the patient for ERCP and possible stending/ stone removal. Laboratory Tests 09/07/17 09/07/17 09/08/17 02:40 11:48 04:15 Amylase 160 H 49 Lipase 807 H 139 H 124 H Afib with RVR: patient remains in afib, she is on coumadin, her INR today is 1.7 , she may need to reverse her anticoagulation before any procedure is planned, I will leave this to the discretion of the sap solution manager consultant. Diabetes: The patient is NPO status and presently on lantus and sliding scale insulin, she seems to be on 20bid of lantus, this AM dose of lantus was held due to the fact that she is npo and her glucose was normal. She may need a lower dose of lantus in pm if she continues to be NPO. The rest of the stay in the hospital was uneven - Time Spent with Patient Total time spent providing and/or coordinating transfer services: Greater than 30 minutes Transfer Discharge Sum: Exam - Constitutional Vitals: Vital Signs Temp Pulse Pulse Pulse Resp BP BP 09/08/17 08:00 97.6 F 66 64 14 143/84 09/08/17 07:00 68 14 09/08/17 03:38 98 F 92 H 16 112/74 09/07/17 23:36 97.8 F 89 16 132/76 09/07/17 20:00 97.4 F 82 14 113/74 09/07/17 16:00 97.8 F 16 109/64 09/07/17 12:26 97.5 F 55 L 12 99/67 Pulse Ox 09/08/17 08:00 93 09/08/17 07:00 93 09/08/17 03:38 92 09/07/17 23:36 90 09/07/17 20:00 96 09/07/17 16:00 92 09/07/17 12:26 90 Intake and Output 09/07/17 09/08/17 09/08/17 21:59 05:59 13:59 Intake Total 1227 / 1227 965 / 965 1000 / 1000 Output Total 700 / 700 450 / 450 350 / 350 Balance 527 / 527 515 / 515 650 / 650 Intake: IV 927 / 927 965 / 965 1000 / 1000 Lactated Ringers 1,000 ml @ 125 927 / 927 965 / 965 1000 / 1000 mls/hr IV .Q8H [facility] Rx#: [id number] Oral 300 / 300 Output: Void Amount 700 / 700 450 / 450 350 / 350 Other: # Bowel Movements 1 Weight 200 lb Additional comments: Constitutional; Afebrile, cooperative, alert, not in distress. Eyes- No icterus, , No periorbital swelling Ears- Ext ear normal, hearing normal to conversation. Neck- Midline trachea, supple Respiratory system: Air Entry equal on both sides, No crackles or wheezing, no rhonchi. CVS- Rate rhythm regular, S1,S2 heard, no gallop, no rub. 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 Transfer Discharge Sum: Data Procedures and tests throughout hospitalization: Pending Orders 09/07/17 05:08 Consult to Physician [CONS] Stat 09/07/17 05:10 Ambulate-Progressive TID Bedrest w/bathroom privileges .ROUTINE Elevate head of bed .ROUTINE Notify Provider PRN Placement to Observation Routine Vital Signs Q4 Resuscitation Status Routine Naloxone HCl [Narcan] 0.1 mg IV Q2MIN PRN Incentive Spirometry Assess/Tx Q1HWA Pulse Oximetry .ROUTINE 09/07/17 07:12 Ambulate-Progressive PRN IV Insertion/Management QSHIFT Intake and Output qshiftio Notify Provider .routine VTE Risk: Assessment ONCE Weight Monitoring QHS Acetaminophen [Tylenol] 650 mg PO Q6HP PRN Calcium Carbonate [Tums] 1,000 mg CHEWED Q4HP PRN Dextrose 50% See Dose Instructions IV UD PRN Docusate Sodium [Colace] 100 mg PO BIDP PRN Magnesium Hydroxide [Milk of Magnesia] [address] to Adjust Diet/Supplements as Needed Routine Oxygen Order .Routine 09/07/17 07:26 Ondansetron [Zofran] 4 mg IV Q4HP PRN 09/07/17 07:29 Notify ONCE 09/07/17 07:30 Lactated Ringers 1,000 ml IV 125 mls/hr Pantoprazole [Protonix] 40 mg IV QAMAC 09/07/17 08:00 Lipase/Protease/Amylase [Creon] 1 cap PO TIDCC 09/07/17 09:00 Carvedilol [Coreg] 6.25 mg PO BID Escitalopram [Lexapro] 5 mg PO QDAY Insulin Glargine, Human [Lantus] 20 unit SQ BID 09/07/17 11:33 Admit as Inpatient Routine 09/07/17 12:00 Accu-Chek 1 each FS Q6 Insulin Lispro [HumaLOG] See Dose Instructions SQ Q6 09/07/17 14:00 0.9 % Sodium Chloride [Saline Flush] 10 ml IV Q8 Warfarin Per Pharmacy [Coumadin Per Pharmacy] 1 order PO DAILY@1400 09/07/17 15:37 morphine 2 mg IV Q4HP PRN 09/07/17 21:00 Doxazosin [Cardura] 1 mg PO HS Heparin 5,000 unit SQ Q12 Pramipexole [Mirapex] 0.125 mg PO HS 09/07/17 Breakfast NPO Diet (NOW) 09/08/17 14:00 Digoxin [Lanoxin] 125 mcg PO MoTuWeThFrSa@1400 Warfarin [Coumadin] 2.5 mg PO ONCE@1400 [facility] 09/09/17 04:00 Complete Blood Count DAILY INR [Prothrombin Time INR] DAILY Inpatient Panel DAILY 09/10/17 04:00 INR [Prothrombin Time INR] DAILY Inpatient Panel DAILY 09/11/17 04:00 INR [Prothrombin Time INR] DAILY 09/12/17 04:00 INR [Prothrombin Time INR] DAILY - Impressions CT Pancreas protocol IMPRESSION: 7 mm stone within the proximal Wirsung's duct - less than 1 cm from the ampulla. This has resulted in marked dilatation of the upstream pancreatic duct (nine mm diameter). There is a second 5 mm stone located in Santorini duct within the mid pancreatic body. Mild injection of the peripancreatic fat planes are compatible simple pancreatitis. There is no evidence of necrosis, abscess or other significant complication. 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 USG abdomen. IMPRESSION: 1. Proximal common bile duct is only slightly dilated 7 mm. Mid and distal common bile duct not visualized 2. Suspect moderate dilatation of pancreatic duct ranging up to 9 mm with two possible stones , six and 8 mm, within the duct. Visualization is suboptimal on ultrasound. If the patient still has a pancreatic stent, it may not be functional. Suggest: abdominal CT - pancreatic protocol for more specific evaluation. Transfer Discharge Sum: A/P - Plan Disposition: [facility] Quality Measure Queries - VTE Deep Vein Thrombosis/Pulmonary Embolism Present on Admission: No
[2017-09-08] MEDS ORDERED: DIGOXIN 125 MCG TABLET PO SCH (14:00)
[2017-09-08] MEDS ORDERED: WARFARIN 2.5 MG TABLET PO ONE (14:00)
== END 2017-09-08 14:10 | disposition short-term general hospital (02) | DRG 440 ==
LOC: ED 02:16 → MEDSUR 02:16
PROVIDERS: ADMIT Internal Medicine; ATTEND Internal Medicine

== ENCOUNTER 2019-08-20 17:32 | Observation (INO) ==
--- NOTE | 2019-08-20 18:16 | Emergency Department Note ---
Abdominal Pain HPI - General Chief Complaint: Abdominal Pain Stated Complaint: abdominal pain Time Seen by Provider: 08/20/19 17:51 Source: patient Mode of arrival: ambulatory Limitations: no limitations - History of Present Illness HPI Narrative: 73-year-old female patient was transferred to the emergency department from radiology after abdominal CT scan showed a developing pancreatitis is suspicious of liver lesion. Upon arrival patient admits to worsening abdominal pain and generalized not feeling well. She describes this as a severe, sharp pain through the epigastric area wrapping around to her left flank. She also has bilateral lower quadrant abdominal cramping. She's had a known pancreatitis history for several years. This is resulting from "pancreatic stones". She has pancreatic stenting placed. CT was ordered because she had routine outpatient laboratory studies that showed leukocytosis. She denies any fever, sweats, chills. She denies any cough, sinusitis, or runny nose. She denies any shortness of breath. She denies substernal chest pain. She denies nausea, vomiting, or diarrhea. She denies focal weakness. A review of her active problem list is rather extensive with the following: UTI, obesity, atrial fibrillation requiring chronic anticoagulation, type 2 diabetes, hypertension, hyperlipidemia, KEAGAN, Parkinson's disease, GERD, depression, insomnia, dizziness. - Related Data Home Medications Medication Instructions Recorded Confirmed cholecalciferol (vitamin D3) 2,000 2,000 unit PO QDAY tab 04/25/15 06/11/18 unit tablet digoxin 125 mcg tablet 125 mcg PO 1700 tab 04/25/15 06/11/18 Warfarin [Coumadin] 2.5 mg PO QDAY tab 11/15/16 06/11/18 furosemide 20 mg tablet 20 mg PO QDAY 04/28/17 06/11/18 potassium chloride 10 mEq 10 meq PO QDAY 04/28/17 06/11/18 capsule,extended release ondansetron 4 mg disintegrating 4 mg PO Q6H PRN 09/17/17 06/11/18 tablet magnesium chloride 71.5 mg 71.5 mg PO QDAY tab 09/26/17 06/11/18 (magnesium chloride) tablet,delayed release pramipexole 0.25 mg tablet 1 mg PO QHS tab 01/26/18 06/11/18 carbidopa ER 50 mg-levodopa 200 mg 1 tab PO TID 06/11/18 06/11/18 tablet,extended release Previous Rx's Medication Instructions Recorded omega 8-kol-svq-fish oil 1,200 mg 2 cap PO BID 90 Days #360 cap 10/10/15 (144 mg-216 mg) capsule plbrwu-jjpqujfw-qcmbvqm 1 cap PO TID #240 cap 07/23/17 24,000-76,000-120,000 unit capsule,delayed rel pen needle, diabetic 32 gauge x See Dose Instructions .ROUTE 02/20/1832" .MEDSUPPLY #100 each cyanocobalamin (vitamin B-12) 1,000 mcg PO .QOD #60 tab 02/25/18 1,000 mcg tablet blood sugar diagnostic See Dose Instructions .ROUTE 04/16/18 .MEDSUPPLY #100 each insulin glargine 100 unit/mL (3 80 unit SUB-Q QHS #21 ml 05/12/18 mL) subcutaneous pen rosuvastatin 5 mg tablet 2.5 mg PO QDAY #60 tab 05/12/18 carvedilol 6.25 mg tablet 6.25 mg PO BID #180 tab 05/26/18 amlodipine 5 mg-olmesartan 20 mg 1 tab PO .COMPLEX tab 06/12/18 tablet fenofibrate 160 mg tablet 160 mg PO QDAY #90 tab 06/12/18 omeprazole 20 mg capsule,delayed 20 mg PO QDAY #90 cap 06/12/18 release insulin aspart U-100 100 unit/mL 28 unit SUB-Q TID #15 ml 07/16/18 (3 mL) subcutaneous pen Ciprofloxacin [Cipro] 500 mg PO BID #14 tab 03/02/19 Allergies Allergy/AdvReac Type Severity Reaction Status Date / Time Klxocao-Shz-Sde Reductase AdvReac Severe Myalgias Verified 08/20/19 17:37 Inhibitor lisinopril AdvReac Intermediate cough Verified 08/20/19 17:37 Sulfa (Sulfonamide AdvReac Mild Rash Verified 08/20/19 17:37 Antibiotics) Review of Systems All systems ED: reviewed and negative except as stated. Abdominal Pain PMH - Past Medical History Medical history: Reports: arthritis, atrial fibrillation, DM, hypertension - Social History Smoking status: Never smoker Alcohol use: Reports: None Drug use: Reports: none Physical Exam Limitations: no limitations General appearance: alert, anxious, grimacing Head: atraumatic (during examination of her abdomen.), normocephalic Eye: Present: normal appearance, PERRL, EOMI. Absent: scleral icterus, co njunctival injection ENT: Present: normal oropharynx, mucous membranes moist Neck: Present: trachea midline. Absent: lymphadenopathy, thyromegaly Chest: Present: symmetric chest wall rise Respiratory: Present: normal lung sounds bilaterally. Absent: respiratory distress, wheezes, stridor, accessory muscle use, prolonged expiratory phase Cardiovascular: Present: irregular rhythm, systolic murmur Abdominal: Present: soft, tenderness, guarding, rigidity, hyperactive bowel sounds. Absent: distention, rebound, organomegaly, ascites, mass Abdominal tenderness: Present: RUQ, RLQ, severe Extremities: Absent: pedal edema, pretibial edema, calf tenderness Neurological: Present: alert, oriented X3 Psychiatric: Present: anxious Skin: Present: warm, dry Course Course Narrative: Patient is brought into the emergency department and a history and physical exams performed. Saline lock was established and laboratory studies are drawn. Abdominal CT scan results were reviewed. Normal saline was started at a 1000 mL bolus. She was given 4 mg Zofran and 0.5 mg of Dilaudid IVP. Review of her laboratory studies show following: CBC with markedly elevated white blood cell 20.4, RBC 5.4, hemoglobin 12.0, hematocrit 37.7, MCV 67.9, platelet count 444, left shift noted. CMP sodium 1:30, chloride 91, globulin 3.9, all as normal limits. PT/INR 42.5/4.6. Lactic acid 1.1. Lipase 7. Abdominal CT CT scan performed earlier today showing recurrent pancreatitis confined to the tail. Radiologist also mentions right hepatic lobe ischemia ostensibly related to stenosis of the right hepatic artery. He recommended hepatic arterial Doppler ultrasound of the right upper quadrant. Radiologist also mentions multiple enlarged lymph nodes. He says his may represent benign reactive lymph nodes due to her pancreatitis but could also be indicative of something more sinister. The ultrasound of the liver is still pending. After reviewing all of this date I reached out to the on-call GI specialist (Dr. Ramachandran) and spoke to him about the patient and her disposition. At this time Dr. Ramachandran recommended the patient be admitted for observation with repeat laboratory studies in the morning. With this in mind I reached out to our hospitalist (Dr. Ayoub) and requested the patient be admitted to observation. At this time Dr. Ayoub has consented to receive the patient and will follow her tomorrow morning. Basic admission orders have been placed and she is going be transferred to telemetry. All further treatment decisions and modalities we treated by Dr. Ayoub Vital Signs Temperature 96.9 F L 08/20/19 17:32 Pulse Rate 98 H 08/20/19 17:32 Respiratory Rate 18 08/20/19 17:32 Pulse Oximetry (%) 97 08/20/19 17:32 Temperature 98.7 F 08/20/19 21:36 Pulse Rate 86 08/20/19 21:36 Respiratory Rate 18 08/20/19 21:36 Blood Pressure 115/92 08/20/19 21:21 Pulse Oximetry (%) 92 08/20/19 21:36 Abdominal Pain - Lab Data Lab results reviewed: Yes I reviewed the patient's lab results. Result diagrams: 08/20/19 18:18 08/20/19 18:18 Lab Results 08/20/19 08/20/19 08/20/19 Range/Units 18:18 18:18 18:18 WBC 20.4 H (4.5-11.0) K/mcL RBC 5.40 H (4.00-5.20) M/mcL Hgb 12.0 (12.0-15.0) g/dL Hct 37.7 (36.0-48.0) % MCV 69.9 L (80.0-100.0) fL MCH 22.2 L (26.0-34.0) pg MCHC 31.8 (31.0-36.0) g/dL RDW 17.7 H (11.5-14.5) % Plt Count 444 H (140-440) K/mcL MPV 7.3 L (7.4-10.4) fL Gran % 84.7 H (38.0-78.0) % Lymph % (Auto) 8.3 L (15.5-49.0) % Parker % (Auto) 5.9 (1.0-12.0) % Eos % (Auto) 1.0 (0.0-7.0) % Baso % (Auto) 0.1 (0.0-2.0) % Gran # 17.3 H (1.8-8.0) K/mcL Lymph # (Auto) 1.7 (1.5-4.8) K/mcL Parker # (Auto) 1.2 H (0.1-0.9) K/mcL Eos # (Auto) 0.2 (0.0-0.7) K/mcL Baso # (Auto) 0 (0.0-0.3) K/mcL PT (11.9-14.5) sec INR (0.9-1.1) VBG Lactic Acid 1.1 (0.5-2.0) mmol/L Sodium 130 L (133-145) mmol/L Potassium 4.2 (3.3-5.1) mmol/L Chloride 91 L (96-108) mmol/L Carbon Dioxide 25 (22-30) mmol/L Anion Gap 14.0 (8-16) BUN 10 (8-23) mg/dl Creatinine 0.6 (0.6-1.1) mg/dl GFR Calculation 90 Glucose 100 (70-105) mg/dL Calcium 9.1 (8.6-10.4) mg/dl Total Bilirubin 0.8 (0.0-1.0) mg/dL AST 8 (0-37) U/l ALT 5 (0-40) U/l Alkaline Phosphatase 87 (39-117) U/L Total Protein 7.2 (5.9-8.4) gm/dL Albumin 3.3 (3.2-5.2) gm/dL Globulin 3.9 H (2.2-3.7) gm/dL Albumin/Globulin Ratio 0.8 L (1.0-2.3) Lipase 7 (7-60) U/L 08/20/19 Range/Units 18:18 WBC (4.5-11.0) K/mcL RBC (4.00-5.20) M/mcL Hgb (12.0-15.0) g/dL Hct (36.0-48.0) % MCV (80.0-100.0) fL MCH (26.0-34.0) pg MCHC (31.0-36.0) g/dL RDW (11.5-14.5) % Plt Count (140-440) K/mcL MPV (7.4-10.4) fL Gran % (38.0-78.0) % Lymph % (Auto) (15.5-49.0) % Parker % (Auto) (1.0-12.0) % Eos % (Auto) (0.0-7.0) % Baso % (Auto) (0.0-2.0) % Gran # (1.8-8.0) K/mcL Lymph # (Auto) (1.5-4.8) K/mcL Parker # (Auto) (0.1-0.9) K/mcL Eos # (Auto) (0.0-0.7) K/mcL Baso # (Auto) (0.0-0.3) K/mcL PT 42.5 H (11.9-14.5) sec INR 4.6 H (0.9-1.1) VBG Lactic Acid (0.5-2.0) mmol/L Sodium (133-145) mmol/L Potassium (3.3-5.1) mmol/L Chloride (96-108) mmol/L Carbon Dioxide (22-30) mmol/L Anion Gap (8-16) BUN (8-23) mg/dl Creatinine (0.6-1.1) mg/dl GFR Calculation Glucose (70-105) mg/dL Calcium (8.6-10.4) mg/dl Total Bilirubin (0.0-1.0) mg/dL AST (0-37) U/l ALT (0-40) U/l Alkaline Phosphatase (39-117) U/L Total Protein (5.9-8.4) gm/dL Albumin (3.2-5.2) gm/dL Globulin (2.2-3.7) gm/dL Albumin/Globulin Ratio (1.0-2.3) Lipase (7-60) U/L - Radiology Data Radiology results reviewed: Yes I reviewed the patient's radiology results. Ordering Physician: Yelitza Cameron Date of Service: 08/20/19 Procedure(s): CT abdomen pelvis w con Accession Number(s): [id number] CLINICAL INFORMATION: History of pancreatitis, leukocytosis and abdominal pain COMPARISON: Abdomen and pelvic CT 04/11/2015 and 05/27/2019. TECHNIQUE: Following enteric contrast, 80 cc of Isovue-370 were injected intravenously, and 60 seconds later, 0.625 mm helical slices were obtained from the mid heart through the subtrochanteric regions. Following reconstruction, 2.5 mm sagittal, coronal and axial reformatted images were processed and reviewed at bone, lung and soft tissue windows. Five minutes later, 0.625 mm helical slices were obtained from the mid heart through the kidneys and viewed at soft tissue windows.The exam was performed using radiation dose optimization techniques including, but not limited to, automated exposure control, adjustment of the mA and/or kV according to patient size and use of iterative reconstruction technique. FINDINGS: Chronic atelectasis of the medial basilar segment left lower lobe is unchanged. There is scattered segmental atelectasis throughout the remaining lower lobes. Tiny left pleural effusion is new. The heart is moderately enlarged, but unchanged. Small hiatal hernia is stable Abdominal images show a large wedge-shaped region of low attenuation involving the right hepatic lobe on the portal venous phase which becomes isointense on the delayed phase. No focal hepatic lesions. Gallbladder is surgically absent. Intrahepatic common bile ducts are normal caliber: CBD is 5 mm. Stent remains in satisfactory, stable position within the pancreatic duct. Mild inflammation of the pancreatic tail parenchyma with moderate fluid in the peripancreatic region of the tail extending to the splenic hilum and the retrogastric region. Small amount of free fluid is noted in the deep true pelvis. This has increased suggesting recurrent pancreatic inflammation. Multiple enlarged lymph nodes in the maurice hepatis, peripancreatic and retroperitoneal region (periaortic region) have increased in size and number. Both kidneys are normal in size. There is a 2 mm nonobstructing stone inferior calyx left kidney. Other than fluid in the hilar and inferior regions of the spleen is unremarkable. Aorta is normal in diameter. There is atherosclerotic plaque in the aortic branches. There is no definite stenosis with the exception of the right hepatic artery which is likely stenotic. Pelvic images show hysterectomy and oophorectomy changes. The urinary bladder is normal. Stomach shows moderate thickening of the wall and rugal folds. The small bowel is unremarkable. A few sigmoid diverticula are noted nodes and diverticulitis. Bone windows show chronic L5-S1 spondylolysis with grade 1 posterolisthesis resulting in severe bilateral IV foraminal narrowing - no change IMPRESSION: 1. Recurrent pancreatitis confined to the tail. There is inflammation in the tail parenchyma with moderate fluid in the peripancreatic fat planes extending to the the splenic hilum and posterior perigastric region. Small amount of free fluid noted in the true pelvis. A pancreatic stent remains in stable satisfactory position. 2. Right hepatic lobe ischemia ostensibly related to stenoses of the right hepatic artery. 3. Multiple enlarged lymph nodes in the maurice habitus, peripancreatic and periaortic region out increased in size and number. While these likely represent benign reactive lymph nodes due to pancreatitis, the possibility possibility of lymphoma or CLL should be entertained - particularly with a 20,000 white count. 4. Moderate gastric wall and rugal fold thickening likely a sympathetic response to pancreatitis. Primary gastritis or other infiltrative is gastric pathologies should be evaluated with endoscopy. 5. Small hiatal hernia Interpreted and Authenticated by: Remberto Henriquez 08/20/19 - EKG Data EKG attestation: Yes I reviewed and interpreted this EKG., Yes There are no EKG findings of acute coronary syndrome, Yes This EKG will be read by oil process stillman Disposition Pt seen by DRY MILL WORKER/PA only: Yes Clinical Impression: Liver lesion Pancreatitis Qualifiers: Chronicity: chronic Pancreatitis type: other Qualified Code(s): K86.1 - Other chronic pancreatitis Leukocytosis Qualifiers: Leukocytosis type: unspecified Qualified Code(s): D72.829 - Elevated white blood cell count, unspecified Disposition: Xfer As Inpt ([facility]) Condition: Fair Additional Instructions: Patient is being admitted to the hospital for observation under the care of the hospitalist (Dr. Ayoub). All further treatment decisions and modalities we carried out by the hospitalist at this time. Referrals: Wade Mckoy MD [Primary Care Provider] - Time of Disposition: 22:10
[2019-08-20] MEDS ORDERED: HYDROmorphone 2 MG/ML VIAL IV PRN (18:19)
[2019-08-20] MEDS ORDERED: 0.9 % SODIUM CHLORIDE 1,000 ML IV ONE (18:19)
[2019-08-20] MEDS ORDERED: ONDANSETRON 4 MG/2 ML VIAL IV ONE (18:19)
[2019-08-20 19:01] LABS: Basophils # (Auto) 0 K/mcL (0.0-0.3); Basophils % (Auto) 0.1 % (0.0-2.0); Eosinophils # (Auto) 0.2 K/mcL (0.0-0.7); Granulocytes % (Auto) 84.7 % (38.0-78.0); Hematocrit 37.7 % (36.0-48.0); Lymphocytes # (Auto) 1.7 K/mcL (1.5-4.8); Lymphocytes % (Auto) 8.3 % (15.5-49.0); Mean Cell Volume 69.9 fL (80.0-100.0); Mean Corpuscular HGB Conc 31.8 g/dL (31.0-36.0); Mean Platelet Volume 7.3 fL (7.4-10.4); Monocytes # (Auto) 1.2 K/mcL (0.1-0.9); Monocytes % (Auto) 5.9 % (1.0-12.0); Platelet Count 444 K/mcL (140-440); Red Cell Distribution Width 17.7 % (11.5-14.5); WBC 20.4 K/mcL (4.5-11.0)
[2019-08-20 19:20] LABS: INR 4.6 (0.9-1.1); Prothrombin Time 42.5 sec (11.9-14.5)
[2019-08-20 19:22] LABS: ALT/SGPT 5 U/l (0-40); AST/SGOT 8 U/l (0-37); Albumin 3.3 gm/dL (3.2-5.2); Albumin/Globulin Ratio 0.8 (1.0-2.3); Alkaline Phosphatase 87 U/L (39-117); Bilirubin,Total 0.8 mg/dL (0.0-1.0); Blood Urea Nitrogen 10 mg/dl (8-23); Calcium 9.1 mg/dl (8.6-10.4); Carbon Dioxide 25 mmol/L (22-30); Chloride 91 mmol/L (96-108); Globulin 3.9 gm/dL (2.2-3.7); Glomerular Filtration Rate 90; Glucose 100 mg/dL (70-105)
[2019-08-20] MEDS ORDERED: PIPERACILLIN SODIUM/TAZOBACTAM 3.375 GM in DEXTROSE 5% IN WATER 50 ML IV ONE (20:43)
[2019-08-20] MEDS ORDERED: ONDANSETRON 4 MG/2 ML VIAL IV PRN (21:49)
[2019-08-20] MEDS: HYDROmorphone 2 MG/ML VIAL IV PRN (23:37)
[2019-08-20] MEDS: 0.9 % SODIUM CHLORIDE 1,000 ML IV SCH (23:41)
[2019-08-20] MEDS: 0.9 % SODIUM CHLORIDE 10 ML SYRINGE IV SCH (23:47)
--- NOTE | 2019-08-21 04:24 | Ultrasound Report ---
CLINICAL INFORMATION: 73 y/o F. Abd pain. pancreatitis. Possible ischemia of the right hepatic lobe on CT. Evaluate right hepatic artery COMPARISON: None. FINDINGS: Liver is mildly enlarged with a vertical dimension 17 cm. Echotexture is normal with no focal liver lesions. Arterial blood flow is normal on color Doppler in the hepatic arteries including the right hepatic branch. Portal veins are patent demonstrating normal hepatopedal flow direction IMPRESSION: Mild hepatomegaly but normal echotexture. Hepatic artery and portal veins are unremarkable Interpreted and Authenticated by: Remberto Henriquez 08/21/19
[2019-08-21] MEDS: HYDROmorphone 2 MG/ML VIAL IV PRN ×4 (04:29→16:59)
[2019-08-21] MEDS: 0.9 % SODIUM CHLORIDE 10 ML SYRINGE IV SCH ×3 (04:36→20:39)
[2019-08-21 06:02] LABS: Basophils # (Auto) 0 K/mcL (0.0-0.3); Basophils % (Auto) 0 % (0.0-2.0); Eosinophils # (Auto) 0.2 K/mcL (0.0-0.7); Eosinophils % (Auto) 0.9 % (0.0-7.0); Granulocytes % (Auto) 82.8 % (38.0-78.0); Hematocrit 38.4 % (36.0-48.0); Hemoglobin 11.7 g/dL (12.0-15.0); Lymphocytes # (Auto) 1.9 K/mcL (1.5-4.8); Lymphocytes % (Auto) 9.8 % (15.5-49.0); Mean Cell Volume 72.2 fL (80.0-100.0); Mean Corpuscular HGB Conc 30.5 g/dL (31.0-36.0); Mean Platelet Volume 7.6 fL (7.4-10.4); Monocytes # (Auto) 1.2 K/mcL (0.1-0.9); Monocytes % (Auto) 6.5 % (1.0-12.0); Platelet Count 421 K/mcL (140-440); RBC 5.32 M/mcL (4.00-5.20); Red Cell Distribution Width 17.9 % (11.5-14.5)
[2019-08-21] MEDS: 0.9 % SODIUM CHLORIDE 1,000 ML IV SCH ×3 (06:52→20:35)
--- NOTE | 2019-08-21 08:41 | Internal Med History&Physical ---
Medical - H&P: [facility] Patient information: Note initiated : 08/20/19 at 11:41 pm Service Date, if different from initiated Date: [] Patient: Shweta Rodriguez a 73 y/o F admitted on 08/20/19 for abdominal pain. Chief Complaint: [] Chief complaint: Abdominal pain/acute pancreatitis on imaging History of present illness: Ms. Rodriguez is a 73 year old F with a history of chronic gallstone pancreatitis managed by [facility]/Dr. Mayers. Patient had a recent stent placement July 08. She has intermittently experienced abdominal pain that is well-controlled on OxyContin. During the last hospitalization her white count was elevated and was discharged on 14 days of ciprofloxacin. A subsequent check at primary care office following 2 weeks of treatment revealed elevated leukocytosis without clear etiology and hence antibiotics were discontinued. Patient has been on a low-fat diet experiencing intermittent pain however over the last few days she has had worsening symptoms requiring high-dose of opioids. She was advised by primary care physician outpatient CT the results of which are concerning for worsening pancreatitis and she was referred to the ER. Initial work-up was essentially unremarkable with negative lipase but in light of imaging suggestive of worsening pancreatitis hospitalist service was consulted. Patient was started on n.p.o. and started on antinausea/analgesics along with crystalloids. At the time of evaluation patient is accompanied with her . She denies changes in medications, exposure to alcohol. She denies fever chills. Endorses to pain 2 out of 10 on normal day worsening to 10 out of 10 intermittent episodes epigastric radiating to the back. Denies diarrhea, bloody stool, chest pain or shortness of breath Review of systems A 10 point review of system was performed and is negative except for one discussed above Medical - H&P: PMH Medical history: Chronic gallstone pancreatitis status post stenting managed by [facility]. Chronic insomnia (Chronic) Depression (Chronic) No ssri due to coumadin interactions. Diarrhea (Chronic) Hypercalcemia (Chronic) Uncontrolled diabetes mellitus (Chronic) Pancreatitis (Chronic 11/17/13) acute on chronic duct stones, increase creon for now. Postsurgical nonabsorption (Chronic) MALABSORPTION POST LAP-TAI Menopausal and postmenopausal disorder (Chronic) NOS Insomnia (Chronic 12/13/14) Hypertension, essential, benign (Chronic) Hyperlipidemia (Chronic) unable to tolerate statin. Gastroesophageal reflux (Chronic 11/17/13) Diabetes mellitus, type II (Chronic) Atrial fibrillation (Chronic) Anemia (Chronic 12/13/14) low iron stores, ferritin 32, advised replacement Right knee pain (Chronic) Abdominal pain of multiple sites (Inactive) 04/07/2015-Trinh, much better, Vasculitis panel neg, esr crp neg. Ankle fracture, left (Inactive) DVT (deep venous thrombosis) (Inactive 11/17/13) PROPHALYXIS Leukocytosis (Inactive) 04/07/15 Trinh Weight gain (Inactive 12/13/14) Surgical History Pancreatic stenting July 08 by [facility] History of adenoidectomy (Inactive) History of appendectomy (Inactive) History of cholecystectomy (Inactive) History of colonoscopy (Inactive 04/11/15) colitis involving only the cecum History of hysterectomy (Inactive) History of left knee replacement (Inactive) History of open reduction and internal fixation (ORIF) procedure (Inactive) L ANKLE History of tonsillectomy (Inactive) Status post arthroscopic surgery of right knee (Inactive) Family History Unknown Malignant neoplasm of breast Mother , 79 Chronic obstructive pulmonary disease Father of unknown cause bio unknown Social History smoking status: Never smoker alcohol intake frequency: does not drink substance use type: does not use Medical - H&P: Meds Home Medications Medication Instructions Recorded Confirmed Type cholecalciferol (vitamin D3) 2,000 2,000 unit PO QDAY tab 04/25/15 08/20/19 History unit tablet digoxin 125 mcg tablet 125 mcg PO 1700 tab 04/25/15 08/20/19 History Warfarin [Coumadin] 2.5 mg PO QDAY tab 11/15/16 08/21/19 History furosemide 20 mg tablet 20 mg PO QDAY 04/28/17 08/20/19 History potassium chloride 10 mEq 10 meq PO QDAY 04/28/17 08/21/19 History capsule,extended release thhfbx-wmyrsbny-kobnbrw 1 cap PO TID #240 cap 07/23/17 08/20/19 Rx 24,000-76,000-120,000 unit capsule,delayed rel pramipexole 0.25 mg tablet 1 mg PO QHS tab 01/26/18 08/21/19 History pen needle, diabetic 32 gauge x See Dose Instructions .ROUTE 02/20/18 05/12/18 Rx " .MEDSUPPLY #100 each cyanocobalamin (vitamin B-12) 1,000 mcg PO .QOD #60 tab 02/25/18 08/20/19 Rx 1,000 mcg tablet blood sugar diagnostic See Dose Instructions .ROUTE 04/16/18 06/11/18 Rx .MEDSUPPLY #100 each insulin glargine 100 unit/mL (3 80 unit SUB-Q QHS #21 ml 05/12/18 08/20/19 Rx mL) subcutaneous pen carvedilol 6.25 mg tablet 6.25 mg PO BID #180 tab 05/26/18 08/20/19 Rx carbidopa ER 50 mg-levodopa 200 mg 1 tab PO TID 06/11/18 08/20/19 History tablet,extended release amlodipine 5 mg-olmesartan 20 mg 1 tab PO .COMPLEX tab 06/12/18 08/20/19 Rx tablet fenofibrate 160 mg tablet 160 mg PO QDAY #90 tab 06/12/18 08/20/19 Rx omeprazole 20 mg capsule,delayed 20 mg PO QDAY #90 cap 06/12/18 08/20/19 Rx release insulin aspart U-100 100 unit/mL 28 unit SUB-Q TID #15 ml 07/16/18 Rx (3 mL) subcutaneous pen Ciprofloxacin [Cipro] 500 mg PO BID #14 tab 03/02/19 08/20/19 Rx Allergies Allergy/AdvReac Type Severity Reaction Status Date / Time Eudburv-Gvl-Thc Reductase AdvReac Severe Myalgias Verified 08/20/19 17:37 Inhibitor lisinopril AdvReac Intermediate cough Verified 08/20/19 17:37 Sulfa (Sulfonamide AdvReac Mild Rash Verified 08/20/19 17:37 Antibiotics) Medical - H&P: Exam - Constitutional Vitals: Temp Pulse Resp BP Pulse Ox 98.3 F 96 H 20 104/70 91 08/21/19 07:14 08/21/19 03:57 08/21/19 07:14 08/21/19 07:14 08/21/19 07:14 General appearance: moderate distress Exam: Alert oriented Head normocephalic Oral cavity dry eye movement symmetrical No ear nose discharge Neck no lymphadenopathy S1-S2 irregular rhythm Diminished breath sounds bases Abdomen soft nontender no flank discoloration Lower extremity no cyanosis clubbing no joint swelling Skin no suspicious lesion Psych alert cooperative Neuro nonfocal Medical - H&P: Reslt - Labs CBC & Chem 7: 08/21/19 04:04 08/21/19 04:04 Labs: Short CBC 08/20/19 08/21/19 Range/Units 18:18 04:04 WBC 20.4 H 19.0 H (4.5-11.0) K/mcL Hgb 12.0 11.7 L (12.0-15.0) g/dL Hct 37.7 38.4 (36.0-48.0) % Plt Count 444 H 421 (140-440) K/mcL BMP 08/20/19 08/21/19 18:18 04:04 Sodium 130 L TNP Potassium 4.2 TNP Chloride 91 L TNP Carbon Dioxide 25 TNP BUN 10 TNP Creatinine 0.6 TNP Glucose 100 TNP Calcium 9.1 TNP Liver Function 08/20/19 08/21/19 Range/Units 18:18 04:04 Total Bilirubin 0.8 TNP (0.0-1.0) mg/dL AST 8 TNP (0-37) U/l ALT 5 TNP (0-40) U/l Alkaline Phosphatase 87 TNP (39-117) U/L Albumin 3.3 TNP (3.2-5.2) gm/dL Medical - H&P: A/P (1) Acute on chronic pancreatitis Current visit: Yes Status: Acute * Acute on chronic pancreatitis as evident on imaging. Continue n.p.o./analgesics/antiemetics. Observation admit. Recommend follow-up outpatient with Jayden ROBLES. Follow-up scheduled September 03 week. * Abdominal pain continue management on as needed opioids * Unexplained leukocytosis over the last 2 years. Patient has been on antibiotics previously for presumed infections. No indication for antibiotic at this time. Check peripheral smear, schedule outpatient hematology follow- up * History of atrial fibrillation currently rate controlled on digoxin/Coreg * Anticoagulation for CVA prophylaxis on Coumadin. INR therapeutic. * Hypertension continue Coreg/amlodipine/Benicar * Chronic pancreatic insufficiency continue pancreatic supplements * History of Parkinson's continue levodopa carbidopa/pramipexole * DM type II continue basal prandial insulin * GERD continue PPI * Full code * Prophylaxis currently on Coumadin Plan * Observation admit * N.p.o. except for meds * Analgesics/crystalloids/antiemetics * Peripheral blood smear * Coumadin dosing based on INR * Prior medical condition management on home meds * Schedule outpatient follow-up with hematology/GI on discharge
[2019-08-21] MEDS ORDERED: [UNRECOGNIZED DRUG - OTHER] PO SCH (08:45)
[2019-08-21] MEDS ORDERED: AMLODIPINE BES PO SCH (08:45)
[2019-08-21] MEDS ORDERED: OLMESARTAN MED PO SCH (08:45)
[2019-08-21] MEDS: POTASSIUM CHLORIDE 10 MEQ TABLET PO SCH (09:08)
[2019-08-21] MEDS: CARBIDOPA/LEVODOPA CR 25/100 TABLET PO SCH ×3 (09:09→20:25)
[2019-08-21] MEDS: FENOFIBRATE 43 MG CAPSULE PO SCH (09:09)
[2019-08-21] MEDS: FUROSEMIDE 20 MG TABLET PO SCH (09:09)
[2019-08-21] MEDS: CARVEDILOL 6.25 MG TABLET PO SCH ×2 (09:15→17:00)
[2019-08-21 09:21] LABS: C-Reactive Protein 16.7 mg/dl (0.0-0.8)
--- NOTE | 2019-08-21 10:09 | Internal Med Progress Note ---
Medical - PN: Subj Patient information: Note initiated : 08/21/19 at 10:07 am Service Date, if different from initiated Date: [] Patient: Shweta Rodriguez a 73 y/o F admitted on 08/20/19 for abdominal pain. Chief Complaint: [] Interval history: Ms. Rodriguez is a 73 year old F with a history of chronic gallstone pancreatitis managed by [facility]/Dr. Mayers. Patient had a recent stent placement July 08. She has intermittently experienced abdominal pain that is well-controlled on OxyContin. During the last hospitalization her white count was elevated and was discharged on 14 days of ciprofloxacin. A subsequent check at primary care office following 2 weeks of treatment revealed elevated leukocytosis without clear etiology and hence antibiotics were discontinued. Patient has been on a low-fat diet experiencing intermittent pain however over the last few days she has had worsening symptoms requiring high-dose of opioids. She was advised by primary care physician outpatient CT the results of which are concerning for worsening pancreatitis and she was referred to the ER. Initial work-up was essentially unremarkable with negative lipase but in light of imaging suggestive of worsening pancreatitis hospitalist service was consulted. Patient was started on n.p.o. and started on antinausea/analgesics along with crystalloids. At the time of evaluation patient is accompanied with her . She denies changes in medications, exposure to alcohol. She denies fever chills. Endorses to pain 2 out of 10 on normal day worsening to 10 out of 10 intermittent episodes epigastric radiating to the back. Denies diarrhea, bloody stool, chest pain or shortness of breath 08/21-patient clinically improved since previous night. Currently on opioids. On IV fluids. Has been n.p.o. throughout the night. Transition to oral clears. He feels a lot better since this morning. White count at 19,000. Microcytic anemia, INR 4.6, CRP 16.7 concerning for active inflammation. Continue bowel rest/analgesics as needed. Continue crystalloids. at bedside. Discussed treatment plan. - Constitutional Vitals: Vital Signs Temp Pulse Resp BP Pulse Ox 98.3 F 96 H 20 104/70 91 08/21/19 07:14 08/21/19 03:57 08/21/19 07:14 08/21/19 07:14 08/21/19 07:14 Period Temp Pulse Resp BP Sys/Lopez Pulse Ox Last 24 Hr 96.9 F-98.7 F 81-132 14-28 70-115/47-92 90-97 Intake and Output 08/20/19 08/21/19 08/21/19 21:59 05:59 13:59 Intake Total 1050 1000 Output Total 350 Balance 1050 -350 1000 Weight 182 lb 182 lb Intake & Output: Intake & Output 08/20/19 08/21/19 08/21/19 21:59 05:59 13:59 Intake Total 1050 1000 Output Total 350 Balance 1050 -350 1000 Weight 182 lb 182 lb Intake: IV 1050 1000 Sodium Chloride 0.9% 1,000 ml @ 1000 1000 150 mls/hr IV .Q6H40M [facility] Rx#: [id number] Zosyn 3.375 gm In Dextrose 5% 50 in Water 50 ml @ 100 mls/hr IV ONCE ONE Rx#:[id number] Output: Void Amount 350 Other: Urine Appearance Clear Urine Color Bright Yellow General appearance: no acute distress Exam: Alert oriented Nonlabored breathing No anxiety Nondistended abdomen No lymphedema Medical - PN: Obj Da - Labs CBC & Chem 7: 08/21/19 04:04 08/21/19 04:04 Labs: Abnormal Lab Results 08/21/19 08/21/19 08/20/19 04:04 04:04 18:18 WBC 19.0 H RBC 5.32 H Hgb 11.7 L MCV 72.2 L MCH 22.0 L MCHC 30.5 L RDW 17.9 H Plt Count MPV Gran % 82.8 H Lymph % (Auto) 9.8 L Gran # 15.8 H [place] # (Auto) 1.2 H PT 42.5 H INR 4.6 H Sodium Chloride C-Reactive Protein 16.7 H Globulin Albumin/Globulin Ratio Lipase < 7 L 08/20/19 08/20/19 18:18 18:18 WBC 20.4 H RBC 5.40 H Hgb MCV 69.9 L MCH 22.2 L MCHC RDW 17.7 H Plt Count 444 H MPV 7.3 L Gran % 84.7 H Lymph % (Auto) 8.3 L Gran # 17.3 H [place] # (Auto) 1.2 H PT INR Sodium 130 L Chloride 91 L C-Reactive Protein Globulin 3.9 H Albumin/Globulin Ratio 0.8 L Lipase Meds: Medications Amlodipine Besylate (Norvasc) 5 mg PO Q48H [facility] Lipase/Protease/Amylase (Creon) 1 cap PO TIDCC [facility] Carbidopa/Levodopa (Sinemet Cr 25/100) 2 tab PO TID [facility] Last Admin: 08/21/19 09:09 Dose: 2 tab Documented by: Carvedilol (Coreg) 6.25 mg PO BIDCC [facility] Last Admin: 08/21/19 09:15 Dose: 6.25 mg Documented by: Cyanocobalamin (Vitamin B-12) 1,000 mcg PO Q48H [facility] Digoxin (Lanoxin) 125 mcg PO [id number]@1700 [facility] Fenofibrate (Antara) 129 mg PO DAILY [facility] Last Admin: 08/21/19 09:09 Dose: 129 mg Documented by: Furosemide (Lasix) 20 mg PO QDAY [facility] Last Admin: 08/21/19 09:09 Dose: 20 mg Documented by: Hydromorphone HCl (Dilaudid) 0.5 mg IV Q2HP PRN; Protocol PRN Reason: Per Pain Protocol Last Admin: 08/21/19 06:52 Dose: 0.5 mg Documented by: Sodium Chloride (Sodium Chloride 0.9%) 1,000 mls @ 150 mls/hr IV .Q6H40M [facility] Last Admin: 08/21/19 06:52 Dose: 150 mls/hr Documented by: Non-Formulary Medication (Insulin Glargine,Hum.Rec.Anlog [Lantus Solostar]) 80 unit SUB-Q QHS [facility] Olmesartan (Benicar) 20 mg PO Q48H [facility] Omeprazole (Prilosec) 20 mg PO ACB [facility] Ondansetron HCl (Zofran) 4 mg IV Q6HP PRN PRN Reason: Nausea And Vomiting Potassium Ch[facility] (Kdur) [facility] Last Admin: 08/21/19 09:08 Dose: 10 meq Documented by: Pramipexole Dihydrochloride (Mirapex) 1 mg PO QHS [facility] Sodium Chloride (Saline Flush) 10 ml IV Q8 [facility] Last Admin: 08/21/19 04:36 Dose: Not Given Documented by: Vitamin D (Vitamin D3) 1,000 [facility] Warfarin Sodium (Coumadin Per Pharmacy) 1 order PO [facility] [place] - PN: A/P - Time Spent With Patient Total time spent is greater than 50% in coordination of care (as documented) at patient's floor/unit and/or counseling patient: 25 - 35 minutes (1) Acute on chronic pancreatitis Status: Acute Assessment and plan: * Acute on chronic pancreatitis as evident on imaging. [place] score however considerable area of anterior inflammation on CT. Clinically improving. Start oral clears. Continue analgesics/antiemetics. * Abdominal pain continue management on as needed opioids * Unexplained leukocytosis over the last 2 years. Patient has been on antibiotics previously for presumed infections. No indication for antibiotic at this time. Await peripheral smear, schedule outpatient hematology follow- up * History of atrial fibrillation currently rate controlled on digoxin/Coreg * Anticoagulation for CVA prophylaxis on Coumadin. INR therapeutic. * Hypertension continue Coreg/amlodipine/Benicar * Chronic pancreatic insufficiency continue pancreatic supplements * History of Parkinson's continue levodopa carbidopa/pramipexole * DM type II continue basal prandial insulin * GERD continue PPI * Full code * Prophylaxis currently on Coumadin. INR therapeutic Plan * Start oral clears * Continue analgesics/crystalloids/antiemetics * Await peripheral blood smear * Daily Coumadin dosing based on INR * Continue prior medical condition management on home meds * Schedule outpatient follow-up with hematology/GI on discharge Current Visit: Yes
[2019-08-21 10:16] LABS: INR 5.2 (0.9-1.1)
[2019-08-21] MEDS: VITAMIN D3 1,000 UNIT TABLET PO SCH (11:09)
[2019-08-21] MEDS: OMEPRAZOLE 20 MG CAPSULE PO SCH (11:09)
[2019-08-21] MEDS ORDERED: LIPASE/PROTEASE/AMYLASE 1 CAP CAPSULE PO SCH (12:00)
[2019-08-21] MEDS ORDERED: oxyCODONE HCL 5 MG TABLET PO PRN (16:43)
[2019-08-21] MEDS ORDERED: HYDROmorphone 2 MG TABLET PO PRN (16:44)
[2019-08-21] MEDS ORDERED: DIGOXIN 125 MCG TABLET PO SCH (17:00)
[2019-08-21] MEDS: LIPASE/PROTEASE/AMYLASE 1 CAP CAPSULE PO SCH (17:03)
[2019-08-21] MEDS: METOPROLOL SUCCINATE 25 MG TAB.XL.24H PO SCH (20:27)
[2019-08-21] MEDS ORDERED: LORazepam 0.5 MG TABLET PO PRN (20:58)
[2019-08-21] MEDS ORDERED: AMITRIPTYLINE 10 MG TABLET PO SCH (21:00)
[2019-08-21] MEDS ORDERED: ESCITALOPRAM 10 MG TABLET PO SCH (21:00)
[2019-08-21] MEDS ORDERED: PRAMIPEXOLE 0.25 MG TABLET PO SCH ×2 (21:00)
[2019-08-21] MEDS ORDERED: GABAPENTIN 300 MG CAPSULE PO SCH (21:00)
[2019-08-21] MEDS ORDERED: INSULIN GLARGINE, HUMAN 1 UNIT/0.01 ML SQ SCH (21:00)
[2019-08-22] MEDS: 0.9 % SODIUM CHLORIDE 1,000 ML IV SCH ×3 (03:10→13:18)
[2019-08-22] MEDS: 0.9 % SODIUM CHLORIDE 10 ML SYRINGE IV SCH ×2 (04:41→13:17)
[2019-08-22 05:15] LABS: INR 5.5 (0.9-1.1); Prothrombin Time 49.3 sec (11.9-14.5)
[2019-08-22] MEDS: CARVEDILOL 6.25 MG TABLET PO SCH (07:23)
[2019-08-22] MEDS: VITAMIN D3 1,000 UNIT TABLET PO SCH (07:23)
[2019-08-22] MEDS: OMEPRAZOLE 20 MG CAPSULE PO SCH (07:23)
[2019-08-22] MEDS: POTASSIUM CHLORIDE 10 MEQ TABLET PO SCH (07:25)
[2019-08-22] MEDS ORDERED: amLODIPine 5 MG TABLET PO SCH (09:00)
[2019-08-22] MEDS ORDERED: CYANOCOBALAMIN (VITAMIN B-12) 500 MCG TABLET PO SCH (09:00)
[2019-08-22] MEDS ORDERED: OLMESARTAN MEDOXOMIL 20 MG TABLET PO SCH (09:00)
[2019-08-22] MEDS: FUROSEMIDE 20 MG TABLET PO SCH (09:03)
[2019-08-22] MEDS: FENOFIBRATE 43 MG CAPSULE PO SCH (09:03)
[2019-08-22] MEDS: CARBIDOPA/LEVODOPA CR 25/100 TABLET PO SCH (09:07)
[2019-08-22] MEDS: METOPROLOL SUCCINATE 25 MG TAB.XL.24H PO SCH (09:10)
[2019-08-22] MEDS: LIPASE/PROTEASE/AMYLASE 1 CAP CAPSULE PO SCH (09:39)
--- NOTE | 2019-08-22 13:42 | Discharge Summary ---
Medical - DS: Prov Patient information: Note initiated : 08/22/19 at 1:39 pm Service Date, if different from initiated Date: [] Patient: Shweta Rodriguez 73 y/o F admitted on 08/20/19 for abdominal pain. Chief Complaint: [] Date of admission: 08/20/19 22:45 Discharge date: 08/22/19 Primary care physician: Wade Mckoy MD Consults: 08/20/19 Consult to Physician [CONS] Stat Comment: Consulting Provider: Brian Madden Reason For Exam: Physician to Consult Medical - DS: Meds - Discharge Medications Prescriptions: oxyCODONE HCL [Roxicodone] 5 - 10 mg PO Q4HP PRN #20 tab PRN Reason: Per Pain Protocol Prescription Printed Active and Home Medications: Home Medications cholecalciferol (vitamin D3) 2,000 unit tablet 4,000 unit PO QDAY tab 04/25/15 [History Confirmed 08/21/19 Last Taken 08/20/19] digoxin 125 mcg tablet 125 mcg PO MOTUWETHFRSA tab 04/25/15 [History Confirmed 08/21/19 Last Taken 08/20/19] Warfarin [Coumadin] 2.5 mg PO QDAY tab 11/15/16 [History Confirmed 08/21/19 Last Taken 08/20/19] furosemide 20 mg tablet 20 mg PO QDAY 04/28/17 [History Confirmed 08/20/19 Last Taken 08/20/19] potassium chloride 10 mEq capsule,extended release 10 meq PO QDAY 04/28/17 [History Confirmed 08/21/19 Last Taken 08/20/19] pramipexole 0.25 mg tablet 0.75 mg PO QHS tab 01/26/18 [History Confirmed 08/21/19 Last Taken 08/20/19] cyanocobalamin (vitamin B-12) 1,000 mcg tablet 1,000 mcg PO .QOD #60 tab 02/25/18 [Rx Confirmed 08/20/19 Last Taken 08/20/19] carvedilol 6.25 mg tablet 6.25 mg PO BID #180 tab 05/26/18 [Rx Confirmed 08/20/19 Last Taken 08/20/19] carbidopa ER 50 mg-levodopa 200 mg tablet,extended release 1 tab PO BID 06/11/18 [History Confirmed 08/21/19 Last Taken 08/20/19] fenofibrate 160 mg tablet 160 mg PO QDAY #90 tab 06/12/18 [Rx Confirmed 08/20/19 Last Taken 08/20/19] omeprazole 20 mg capsule,delayed release 20 mg PO QDAY #90 cap 06/12/18 [Rx Confirmed 08/20/19 Last Taken 08/20/19] Amitriptyline [Elavil] 1 tab PO HS 08/21/19 [History Confirmed 08/21/19 Last Taken Unknown] Escitalopram [Lexapro] 1 tab PO HS 08/21/19 [History Confirmed 08/21/19 Last Taken Unknown] Gabapentin [Neurontin] 1 tab PO HS 08/21/19 [History Confirmed 08/21/19 Last Taken Unknown] Insulin Aspart [Novolog Flexpen] 2 - 20 unit SUBCUT AC 08/21/19 [History Confirmed 08/21/19 Last Taken 08/17/19] Insulin Glargine, Human [Lantus] 70 units SQ HS 08/21/19 [History Confirmed 08/21/19 Last Taken 08/19/19] Lipase/Protease/Amylase [Creon Dr 24,000 Units Capsule] 1 cap PO BID 08/21/19 [History Confirmed 08/21/19 Last Taken 08/20/19] Metoprolol Succinate [Toprol Xl] 12.5 mg PO BID 08/21/19 [History Confirmed 08/21/19 Last Taken Unknown] [place] 3 Fish Oil Softgel 3,000 mg PO BID 08/21/19 [History Confirmed 08/21/19 Last Taken 08/18/19] oxyCODONE HCL [Oxycodone HCl] 1 tab PO Q6HP PRN 08/21/19 [History Confirmed 08/21/19 Last Taken Unknown] oxyCODONE HCL [Roxicodone] 5 - 10 mg PO Q4HP PRN #20 tab 08/22/19 [Rx Last Taken Unknown] Medical - DS: Hosp Hospital Course: Discharge diagnosis * Acute on chronic pancreatitis as evident on imaging. On presentation low [place] score. Patient managed conservatively on crystalloid/antiemetics and n.p.o. Patient was gradually advanced to low-fat diet which she tolerated well. Patient is currently pain-free. Stable hemodynamics. Abdominal pain resolved. Discharging with advised to follow-up with [facility] as scheduled for follow-up of pancreatic stents and chronic pancreatitis management * Abdominal pain clinically improved. Continue as needed opioids * Unexplained leukocytosis over the last 2 years. Patient has been on antibiotics previously for presumed infections. No indication for antibiotic at this time. Peripheral smear inconclusive and consistent with leukocytosis/neutrophilia. Recommend outpatient hematology follow-up * History of atrial fibrillation currently rate controlled on digoxin/Coreg * Anticoagulation for CVA prophylaxis on Coumadin. INR therapeutic. * Hypertension continue Coreg/amlodipine/Benicar * Chronic pancreatic insufficiency continue pancreatic supplements * History of Parkinson's continue levodopa carbidopa/pramipexole * DM type II continue basal prandial insulin * GERD continue PPI Brief hospital course Ms. Rodriguez is a 73 year old F with a history of chronic gallstone pancreatitis managed by [facility]/Dr. Mayers. Patient had a recent stent placement July 08. She has intermittently experienced abdominal pain that is well-controlled on OxyContin. During the last hospitalization her white count was elevated and was discharged on 14 days of ciprofloxacin. A subsequent check at primary care office following 2 weeks of treatment revealed elevated leukocytosis without clear etiology and hence antibiotics were discontinued. Patient has been on a low-fat diet experiencing intermittent pain however over the last few days she has had worsening symptoms requiring high-dose of opioids. She was advised by primary care physician outpatient CT the results of which are concerning for worsening pancreatitis and she was referred to the ER. Initial work-up was essentially unremarkable with negative lipase but in light of imaging suggestive of worsening pancreatitis hospitalist service was consulted. Patient was started on n.p.o. and started on antinausea/analgesics along with crystalloids. At the time of evaluation patient is accompanied with her . She denies changes in medications, exposure to alcohol. She denies fever chills. Endorses to pain 2 out of 10 on normal day worsening to 10 out of 10 intermittent episodes epigastric radiating to the back. Denies diarrhea, bloody stool, chest pain or shortness of breath 08/21-patient clinically improved since previous night. Currently on opioids. On IV fluids. Has been n.p.o. throughout the night. Transition to oral clears. He feels a lot better since this morning. White count at 19,000. Microcytic anemia, INR 4.6, CRP 16.7 concerning for active inflammation. Continue bowel rest/analgesics as needed. Continue crystalloids. at bedside. Discussed treatment plan. 08/22-patient doing well. Discharging with advised to follow-up with primary care physician/outpatient hematology for work-up of neutrophilia. Continue low- fat diet. Follow-up with [facility] as prior. Return to ER if worsening abdominal pain nausea vomiting. Discharge diagnosis: . - Time Spent with Patient Total time spent providing and/or coordinating discharge services: Greater than 30 minutes Medical - DS: Exam - Constitutional Vitals: Vital Signs Temp Pulse Resp BP BP Pulse Ox 08/22/19 11:51 97.3 F 65 100/72 94 08/22/19 09:11 84 18 98/60 08/22/19 06:33 97.8 F 16 98/64 93 08/22/19 04:38 97.1 F 79 16 93/57 97 08/21/19 23:01 97.4 F 71 16 93/61 94 08/21/19 20:40 98.0 F 85 18 100/62 93 08/21/19 16:15 110/64 08/21/19 15:50 98.8 F 100 H 16 88/60 93 Intake and Output 08/21/19 08/22/19 08/22/19 21:59 05:59 13:59 Intake Total 1860 1227 1350 Output Total 300 800 400 Balance 1560 427 950 Intake: IV 1000 987 750 Sodium Chloride 0.9% 1,000 ml @ 1000 987 750 150 mls/hr IV .Q6H40M [facility] Rx#: [id number] Oral 860 240 600 Output: Void Amount 300 800 400 Other: Meal Lunch Percent of Meal Consumed 50% Feeding Ability Independent Urine Appearance Clear Clear Clear Urine Color Bright Yellow Dark [place] Dark Yellow Urine Odor Normal Stool Size Moderate Stool Color Brown Stool Consistency Loose # Voids 1 # Bowel Movements 1 # of times incontinent of 1 Bowels Weight 182 lb Medical - DS: Data Labs on day of discharge: Labs from last 24 hours 08/22/19 04:23 PT 49.3 H INR 5.5 H Preliminary micro results at discharge 08/20/19 18:45 Blood Culture - Preliminary Blood 08/20/19 18:18 Blood Culture - Preliminary Blood Medical - DS: A/P - Patient/Caregiver Discharge Instructions Activity: increase activity as tolerated Diet: Low Fat Additional Instructions: Follow-up with GI at [facility] as scheduled Follow-up primary care physician in 5 to 7 days Follow-up with hematology for evaluation of leukocytosis. Recommend primary care physician to coordinate outpatient hematology follow-up Continue low-fat diet Prescriptions: oxyCODONE HCL [Roxicodone] 5 - 10 mg PO Q4HP PRN #20 tab PRN Reason: Per Pain Protocol Prescription Printed - Problem Maintenance (1) Acute on chronic pancreatitis Status: Acute - Follow up Plan Follow up with: Wade Mckoy MD [Primary Care Provider] - Disposition: Home, Self-Care Prognosis: Fair Rehab Potential: Fair I certify that the patient requires SNF services: No Overall status at discharge: patient is progressing back to baseline
== END 2019-08-22 14:20 | disposition home or self-care (01) ==
LOC: MEDSUR 17:32 → ED 17:32 → MEDSUR 22:51
PROVIDERS: ADMIT Internal Medicine; ATTEND Internal Medicine

== ENCOUNTER 2019-11-04 15:35 | Inpatient (IN) ==
[2019-11-04 17:08] LABS: Basophils # (Auto) 0.09 K/mcL (0.00-0.30); Basophils % (Auto) 0.4 % (0.0-2.0); Eosinophils # (Auto) 0.16 K/mcL (0.00-0.70); Eosinophils % (Auto) 0.8 % (0.0-7.0); Granulocytes % (Auto) 82.5 % (38.0-78.0); Hematocrit 36.5 % (34.1-44.9); Lymphocytes # (Auto) 2.03 K/mcL (1.50-4.80); Mean Cell Volume 72.9 fL (80.0-100.0); Mean Corpuscular HGB Conc 30.1 g/dL (31.0-36.0); Mean Platelet Volume 8.8 fL (7.4-10.4); Monocytes # (Auto) 1.28 K/mcL (0.10-0.90); Monocytes % (Auto) 6.3 % (1.0-12.0); Platelet Count 398 K/mcL (140-440); RBC 5.01 M/mcL (3.59-5.38); Red Cell Distribution Width 20.9 % (11.5-14.5); WBC 20.2 K/mcL (4.50-11.00)
[2019-11-04] MEDS ORDERED: 0.9 % SODIUM CHLORIDE 500 ML IV ONE (17:09)
[2019-11-04 17:23] LABS: ALT/SGPT < 5 U/l (0-40); AST/SGOT 17 U/l (0-37); Albumin 2.5 gm/dL (3.2-5.2); Albumin/Globulin Ratio 0.6 (1.0-2.3); Alkaline Phosphatase 109 U/L (39-117); Bilirubin,Total 0.7 mg/dL (0.0-1.0); Blood Urea Nitrogen 16 mg/dl (8-23); Calcium 8.7 mg/dl (8.6-10.4); Carbon Dioxide 21 mmol/L (22-30); Chloride 91 mmol/L (96-108); Glomerular Filtration Rate 73; Glucose 53 mg/dL (70-105)
--- NOTE | 2019-11-04 17:34 | Emergency Department Note ---
General Adult HPI - General Chief complaint: Blood Pressure Problem Stated complaint: Dizziness, low BP Time Seen by Provider: 11/04/19 16:58 Source: patient, family Mode of arrival: wheelchair Limitations: no limitations - History of Present Illness HPI Narrative: 74-year-old female patient presents emergency department with chief complaint of hypotension and dizziness. Patient tells she was at the urology office earlier today when they took several blood pressures that were rather low 80s systolic. She mentions that they had EMS out to her home last night and her blood pressure was 70 systolic. She typically has hypertension. She is under the care of a plugger worker (Dr. Butler) for atrial fibrillation and hypertension. A review of her medication list shows that she is currently taking both carvedilol and metoprolol. She is also on digoxin and takes 20 mg of furosemide for CHF. She denies any systemic fever, sweats, chills. She denies any vision changes. She denies any headache. She denies any sinus congestion runny nose. She denies any shortness of breath. She denies retrosternal chest pain or palpitations. She admits to chronic abdominal pain associated with pancreatitis. She denies nausea or vomiting. She denies constipation or diarrhea. She denies hemoptysis, hematochezia, hematemesis, or hematuria. She admits to generalized malaise. She denies focal weakness. A review of her active problems shows the following: UTI, flank pain, liver lesions, leukocytosis, chronic pancreatitis, obesity, atrial fibrillation with chronic anticoagulation, uncontrolled diabetes, hyperlipidemia, KEAGAN, Parkinson's disease, hypomagnesia, abdominal pain, GERD, depression, dizziness, chronic insomnia, vitamin deficiency. - Related Data Home Medications Medication Instructions Recorded Confirmed cholecalciferol (vitamin D3) 2,000 4,000 unit PO QDAY tab 04/25/15 11/04/19 unit tablet digoxin 125 mcg (0.125 mg) tablet 125 mcg PO MOTUWETHFRSA tab 04/25/15 11/04/19 furosemide 20 mg tablet 20 mg PO QDAY 04/28/17 11/04/19 potassium chloride 10 mEq 10 meq PO QDAY 04/28/17 11/04/19 capsule,extended release pramipexole 0.25 mg tablet 0.75 mg PO QHS tab 01/26/18 11/04/19 carbidopa ER 50 mg-levodopa 200 mg 1 tab PO BID 06/11/18 11/04/19 tablet,extended release Amitriptyline [Elavil] 1 tab PO HS 08/21/19 11/04/19 Escitalopram [Lexapro] 1 tab PO HS 08/21/19 11/04/19 Gabapentin [Neurontin] 1 tab PO TID 08/21/19 11/04/19 Insulin Aspart [Novolog Flexpen] 2 - 20 unit SUBCUT AC 08/21/19 11/04/19 Insulin Glargine, Human [Lantus] 70 units SQ HS 08/21/19 11/04/19 Lipase/Protease/Amylase [Creon Dr 1 cap PO BID 08/21/19 11/04/19 24,000 Units Capsule] Metoprolol Succinate [Toprol Xl] 12.5 mg PO BID 08/21/19 11/04/19 Justice 3 Fish Oil Softgel 3,000 mg PO BID 08/21/19 11/04/19 oxyCODONE HCL [Oxycodone HCl] 1 tab PO Q6HP PRN 08/21/19 08/21/19 Apixaban [Eliquis] 5 mg PO BID 11/04/19 11/04/19 Ferrous Sulfate [Iron] 325 mg PO BID 11/04/19 11/04/19 Pantoprazole [Protonix] 40 mg PO AC 11/04/19 11/04/19 Previous Rx's Medication Instructions Recorded carvedilol 6.25 mg tablet 6.25 mg PO BID #180 tab 05/26/18 fenofibrate 160 mg tablet 160 mg PO QDAY #90 tab 06/12/18 oxyCODONE HCL [Roxicodone] 5 - 10 mg PO Q4HP PRN #20 tab 08/22/19 Allergies Allergy/AdvReac Type Severity Reaction Status Date / Time [id number]-Zvs Reductase AdvReac Severe Myalgias Verified 11/04/19 15:35 Inhibitor lisinopril AdvReac Intermediate cough Verified 11/04/19 15:35 Sulfa (Sulfonamide AdvReac Mild Rash Verified 11/04/19 15:35 Antibiotics) Review of Systems All systems ED: reviewed and negative except as stated. Past Medical History - Past Medical History Medical history: Reports: arthritis, atrial fibrillation, DM, hypertension Surgical history ED: Reports: appendectomy, cholecystectomy, hysterectomy, knee replacement, orthopedic, other - Social History smoking status: Never smoker Alcohol use: Reports: None Drug use: Reports: none Physical Exam Limitations: no limitations General appearance: alert, in no apparent distress Head: atraumatic, normocephalic Eye: Present: normal appearance, PERRL, EOMI. Absent: scleral icterus, co njunctival injection ENT: Present: normal oropharynx, mucous membranes moist Neck: Present: trachea midline. Absent: lymphadenopathy, thyromegaly Chest: Present: symmetric chest wall rise Respiratory: Present: normal lung sounds bilaterally. Absent: respiratory distress, wheezes, stridor, accessory muscle use, prolonged expiratory phase Cardiovascular: Present: regular rate, irregular rhythm, systolic murmur (Harsh holosystolic murmur heard.) Abdominal: Present: soft, tenderness. Absent: distention, guarding, rebound, rigidity, organomegaly, mass Abdominal tenderness: Present: LUQ, LLQ, moderate Extremities: Present: normal inspection, full ROM, normal capillary refill. Absent: pedal edema Neurological: Present: alert, oriented X3 Psychiatric: Present: normal affect, normal mood Skin: Present: warm, dry Course Course Narrative: Patient was brought into the emergency department and a history and physical exam was performed. Saline lock was established laboratory studies were drawn. Normal saline was started at 500 mL bolus. Patient's blood pressure is 103/64. Question why the patient is on both carvedilol and metoprolol. Patient's digoxin level was also evaluated. Patient was given a small meal and upon reevaluation says she continues to feel dizzy and unwell. A review of her laboratory studies show the following: CBC WBC 20.2, RBC 5.01, hemoglobin 11, hematocrit 36.5, MCV 72.9, granulocyte percent 82.5, granulocyte #16.68. CMP sodium 130, chloride 91, carbon dioxide 21, anion gap 18, glucose 53, albumin 2.5, globulin 4.0, all others normal limits. When questioned about leukocytosis a review of records shows that this is been an ongoing issue. She attributes this to her recent UTI. Review of her vital sign record shows that her recent blood pressure has been 86/53 to 90/62. Heart rate is been 90s to 100s. After reviewing all the data I discussed these findings with the patient. We had a candid discussion about discharged home. At this time patient continues to complain of feeling unwell and dizzy. She is fearful of going home due to her blood pressure issue. With this in mind I reached out to the hospitalist (Dr. Kaur) and spoke to him about the patient and her presentation. She continues to be hypotensive blood pressure 90 systolic. We discussed her various medications including her dual beta-annie therapy. We also discussed her ongoing UTI and likely needing treatment for this. He reviewed her record and said he would accept the patient for hospitalization of UTI and hypotension. I explained this to the patient. At this time Dr. Kaur is going to assume care. All further treatment decisions and modalities to be carried out by Dr. Kaur. Vital Signs Temperature 97.2 F 11/04/19 15:35 Pulse Rate 100 H 11/04/19 15:35 Respiratory Rate 18 11/04/19 15:35 Blood Pressure 76/54 11/04/19 15:35 Pulse Oximetry (%) 90 11/04/19 15:35 Temperature 97.2 F 11/04/19 15:35 Pulse Rate 101 H 11/04/19 21:50 Respiratory Rate 19 11/04/19 21:50 Blood Pressure 98/62 11/04/19 21:17 Pulse Oximetry (%) 98 11/04/19 21:50 Medical Decision Making - Lab Data Lab results reviewed: Yes I reviewed the patient's lab results. Result diagrams: 11/04/19 16:20 11/04/19 16:20 Lab Results 11/04/19 11/04/19 11/04/19 Range/Units 16:20 16:20 16:20 WBC 20.2 H (4.50-11.00) K/mcL RBC 5.01 (3.59-5.38) M/mcL Hgb 11.0 L (11.2-15.7) g/dL Hct 36.5 (34.1-44.9) % MCV 72.9 L (80.0-100.0) fL MCH 22.0 L (26.0-34.0) pg MCHC 30.1 L (31.0-36.0) g/dL RDW 20.9 H (11.5-14.5) % Plt Count 398 (140-440) K/mcL MPV 8.8 (7.4-10.4) fL Gran % 82.5 H (38.0-78.0) % Lymph % (Auto) 10.0 L (15.5-49.0) % Armstrong % (Auto) 6.3 (1.0-12.0) % Eos % (Auto) 0.8 (0.0-7.0) % Baso % (Auto) 0.4 (0.0-2.0) % Gran # 16.68 H (1.80-8.00) K/mcL Lymph # (Auto) 2.03 (1.50-4.80) K/mcL Armstrong # (Auto) 1.28 H (0.10-0.90) K/mcL Eos # (Auto) 0.16 (0.00-0.70) K/mcL Baso # (Auto) 0.09 (0.00-0.30) K/mcL Band Neutrophils % VBG Lactic Acid (0.5-2.0) mmol/L Sodium 130 L (133-145) mmol/L Potassium 4.6 (3.3-5.1) mmol/L Chloride 91 L (96-108) mmol/L Carbon Dioxide 21 L (22-30) mmol/L Anion Gap 18.0 H (8-16) BUN 16 (8-23) mg/dl Creatinine 0.8 (0.6-1.1) mg/dl GFR Calculation 73 Glucose 53 L (70-105) mg/dL Calcium 8.7 (8.6-10.4) mg/dl Total Bilirubin 0.7 (0.0-1.0) mg/dL AST 17 (0-37) U/l ALT < 5 (0-40) U/l Alkaline Phosphatase 109 (39-117) U/L Troponin T < 0.01 (0-0.03) ng/ml Total Protein 6.5 (5.9-8.4) gm/dL Albumin 2.5 L (3.2-5.2) gm/dL Globulin 4.0 H (2.2-3.7) gm/dL Albumin/Globulin Ratio 0.6 L (1.0-2.3) Urine Color Urine Appearance Urine pH (5.0-9.0) Ur Specific [place] (1.000-1.035) Urine Protein (NEG) mg/dL Urine Glucose (UA) (NEG) mg/dL Urine Ketones (NEG) mg/dL Urine Occult Blood (<0.03) mg/dL Urine Nitrate (NEG) Urine Bilirubin (NEG) mg/dL Urine Urobilinogen (NEG) mg/dL Ur Leukocyte Esterase (NEG) /uL Urine RBC (0-1) /hpf Urine WBC (0-4) /hpf Ur Squamous Epith Cells (0-4) /hpf Ur Transition Epith Cell (0-2) /hpf Amorphous Crystals (0) /hpf Urine Bacteria (0) /hpf Urine Mucus (0) /hpf Ur Culture Indicated? Digoxin ng/mL Digoxin Dose Digox Last Dose Time 11/04/19 11/04/19 11/04/19 Range/Units 16:20 17:20 20:16 WBC (4.50-11.00) K/mcL RBC (3.59-5.38) M/mcL Hgb (11.2-15.7) g/dL Hct (34.1-44.9) % MCV (80.0-100.0) fL MCH (26.0-34.0) pg MCHC (31.0-36.0) g/dL RDW (11.5-14.5) % Plt Count (140-440) K/mcL MPV (7.4-10.4) fL Gran % (38.0-78.0) % Lymph % (Auto) (15.5-49.0) % Armstrong % (Auto) (1.0-12.0) % Eos % (Auto) (0.0-7.0) % Baso % (Auto) (0.0-2.0) % Gran # (1.80-8.00) K/mcL Lymph # (Auto) (1.50-4.80) K/mcL Armstrong # (Auto) (0.10-0.90) K/mcL Eos # (Auto) (0.00-0.70) K/mcL Baso # (Auto) (0.00-0.30) K/mcL Band Neutrophils % Not Reportable VBG Lactic Acid (0.5-2.0) mmol/L Sodium (133-145) mmol/L Potassium (3.3-5.1) mmol/L Chloride (96-108) mmol/L Carbon Dioxide (22-30) mmol/L Anion Gap (8-16) BUN (8-23) mg/dl Creatinine (0.6-1.1) mg/dl GFR Calculation Glucose (70-105) mg/dL Calcium (8.6-10.4) mg/dl Total Bilirubin (0.0-1.0) mg/dL AST (0-37) U/l ALT (0-40) U/l Alkaline Phosphatase (39-117) U/L Troponin T (0-0.03) ng/ml Total Protein (5.9-8.4) gm/dL Albumin (3.2-5.2) gm/dL Globulin (2.2-3.7) gm/dL Albumin/Globulin Ratio (1.0-2.3) Urine Color Yellow Urine Appearance Hazy Urine pH 6.0 (5.0-9.0) Ur Specific [place] 1.011 (1.000-1.035) Urine Protein Neg (NEG) mg/dL Urine Glucose (UA) Negative (NEG) mg/dL Urine Ketones Neg (NEG) mg/dL Urine Occult Blood Neg (<0.03) mg/dL Urine Nitrate Neg (NEG) Urine Bilirubin Neg (NEG) mg/dL Urine Urobilinogen 2.0 A (NEG) mg/dL Ur Leukocyte Esterase 250 A (NEG) /uL Urine RBC 4 H (0-1) /hpf Urine WBC 28 H (0-4) /hpf Ur Squamous Epith Cells 16 H (0-4) /hpf Ur Transition Epith Cell < 1 (0-2) /hpf Amorphous Crystals Few A (0) /hpf Urine Bacteria Mod A (0) /hpf Urine Mucus Few (0) /hpf Ur Culture Indicated? No Digoxin 0.5 ng/mL Digoxin Dose Not Reportable Digox Last Dose Time Not Reportable 11/04/19 Range/Units 21:35 WBC (4.50-11.00) K/mcL RBC (3.59-5.38) M/mcL Hgb (11.2-15.7) g/dL Hct (34.1-44.9) % MCV (80.0-100.0) fL MCH (26.0-34.0) pg MCHC (31.0-36.0) g/dL RDW (11.5-14.5) % Plt Count (140-440) K/mcL MPV (7.4-10.4) fL Gran % (38.0-78.0) % Lymph % (Auto) (15.5-49.0) % Armstrong % (Auto) (1.0-12.0) % Eos % (Auto) (0.0-7.0) % Baso % (Auto) (0.0-2.0) % Gran # (1.80-8.00) K/mcL Lymph # (Auto) (1.50-4.80) K/mcL Armstrong # (Auto) (0.10-0.90) K/mcL Eos # (Auto) (0.00-0.70) K/mcL Baso # (Auto) (0.00-0.30) K/mcL Band Neutrophils % VBG Lactic Acid 1.9 (0.5-2.0) mmol/L Sodium (133-145) mmol/L Potassium (3.3-5.1) mmol/L Chloride (96-108) mmol/L Carbon Dioxide (22-30) mmol/L Anion Gap (8-16) BUN (8-23) mg/dl Creatinine (0.6-1.1) mg/dl GFR Calculation Glucose (70-105) mg/dL Calcium (8.6-10.4) mg/dl Total Bilirubin (0.0-1.0) mg/dL AST (0-37) U/l ALT (0-40) U/l Alkaline Phosphatase (39-117) U/L Troponin T (0-0.03) ng/ml Total Protein (5.9-8.4) gm/dL Albumin (3.2-5.2) gm/dL Globulin (2.2-3.7) gm/dL Albumin/Globulin Ratio (1.0-2.3) Urine Color Urine Appearance Urine pH (5.0-9.0) Ur Specific [place] (1.000-1.035) Urine Protein (NEG) mg/dL Urine Glucose (UA) (NEG) mg/dL Urine Ketones (NEG) mg/dL Urine Occult Blood (<0.03) mg/dL Urine Nitrate (NEG) Urine Bilirubin (NEG) mg/dL Urine Urobilinogen (NEG) mg/dL Ur Leukocyte Esterase (NEG) /uL Urine RBC (0-1) /hpf Urine WBC (0-4) /hpf Ur Squamous Epith Cells (0-4) /hpf Ur Transition Epith Cell (0-2) /hpf Amorphous Crystals (0) /hpf Urine Bacteria (0) /hpf Urine Mucus (0) /hpf Ur Culture Indicated? Digoxin ng/mL Digoxin Dose Digox Last Dose Time - Radiology Data Radiology results reviewed: Yes I reviewed the patient's radiology results. Portable chest x-ray reviewed showing cardiomegaly but no acute pulmonary infiltrate. This will be over read by radiologist next 12-24 hours - EKG Data EKG #1 EKG attestation: Yes I reviewed and interpreted this EKG., Yes There are no EKG findings of acute coronary syndrome, Yes This EKG will be read by plugger worker Disposition Pt seen by C[employer] MACHINE OPERATOR/PA only: Yes Clinical Impression: UTI (urinary tract infection) Qualifiers: Urinary tract infection type: site unspecified Hematuria presence: with hematuria Qualified Code(s): N39.0 - Urinary tract infection, site not specified; R31.9 - Hematuria, unspecified Hypotension Qualifiers: Hypotension type: unspecified hypotension type Qualified Code(s): I95.9 - Hypotension, unspecified Atrial fibrillation Qualifiers: Atrial fibrillation type: longstanding persistent Qualified Code(s): I48.11 - Longstanding persistent atrial fibrillation Disposition: Xfer As Outpt/Obs ([facility]) Condition: Fair Additional Instructions: Patient is going to be admitted to the hospital under the care of the hospitalist (Dr. Kaur). All further treatment decisions and modalities to be carried out by the hospitalist. Referrals: Wade Mckoy MD [Primary Care Provider] - Time of Disposition: 22:28
[2019-11-04 18:15] LABS: Digoxin 0.5 ng/mL
[2019-11-04] MEDS ORDERED: 0.9 % SODIUM CHLORIDE 1,000 ML IV ONE (18:50)
[2019-11-04 21:30] LABS: Appearance,Urine HAZY; Bacteria,Urine MOD /hpf (0); Bilirubin,Urine NEG (NEG); Color,Urine YELLOW; Culture Indicated,Urine NO; Glucose,Urine (UA) NEGATIVE (NEG); Ketones,Urine NEG (NEG); Leukocyte Esterase,Urine 250 /uL (NEG); Mucus,Urine FEW /hpf (0); Nitrate,Urine NEG (NEG); Protein,Urine NEG (NEG); Specific Gravity,Urine 1.011 (1.000-1.035); Urine Amorphous Crystals FEW /hpf (0); Urine Blood NEG mg/dL (<0.03); Urine RBC 4 /hpf (0-1); Urine Squamous Epithelial Cell 16 /hpf (0-4); Urine Transitional Epi Cells < 1 /hpf (0-2); Urine WBC 28 /hpf (0-4)
[2019-11-04 22:23] LABS: Anisocytosis 1+ (NONE SEEN); Hypochromasia 1+ (NONE SEEN); Lymphocytes % 9 % (15-49); Microcytosis 1+ (NONE SEEN); Monocytes % (Manual) 4 % (1-12); Platelet Estimate NORMAL (NORMAL); RBC Morphology ABNORMAL (NORMAL); Segmented Neutrophils % 87 % (38-78)
--- NOTE | 2019-11-04 22:43 | Internal Med History&Physical ---
Medical - H&P: [facility] Patient information: Note initiated : 11/04/19 at 10:38 pm Service Date, if different from initiated Date: [] Patient: Shweta Rodriguez a 74 y/o F admitted on for Dizziness, low BP. Chief Complaint: [] History of present illness: Ms. Rodriguez is a 74 year old F Who presents the ED with low blood pressure sent in by her head esthetician. She was at the urologist today regarding chronic urinary tract infections when she was noted to have low blood pressure. She called her head esthetician office who to ld her to come to the ED. She says she has been feeling weaker than usual for the past 2 to 3 days with increased dizziness lightheadedness. Her systolic blood pressures were 70s and 80s. She is on several beta-blockers as well as digoxin atrial fibrillation. Heart rate was 90s. Oxygenating okay on room air. Lactate level is okay. Opponent was negative. Is a chronic leukocytosis. Chest x-ray unremarkable. Blood glucose was low she says her blood glucose runs 50s and 60s and night low 100s during the day. She does not always have a nighttime snack. Patient with nausea. She finished Macrobid on Friday. Recent urine cultures from earlier in the year grew E. coli, ESBL. Review of Systems: Pertinent positives as above. Denies headache/fever/chills/vomiting/chest or abdominal pain/cough/dyspnea. Remaining 10 point review of system reviewed negative Medical - H&P: PMH Medical history: Medical History (Last Updated 03/06/19 @ 16:03 by Nicholas Vazquez DO) Obesity (BMI 35.0-39.9 without comorbidity) (Chronic) Stricture of pancreatic duct (Chronic) Chronic anticoagulation (Chronic) Atrial fibrillation (Chronic) Uncontrolled diabetes mellitus (Chronic) Hypertension, essential, benign (Chronic) Hyperlipidemia (Chronic) KEAGAN (obstructive sleep apnea) (Chronic) Anemia (Chronic 12/13/14) Parkinson's disease (Chronic) Pancreatitis (Chronic 11/17/13) Hypomagnesemia (Resolved) Abdominal pain (Chronic) Gastroesophageal reflux (Chronic 11/17/13) Depression (Chronic) Diarrhea (Chronic) Postsurgical nonabsorption (Chronic) Menopausal and postmenopausal disorder (Chronic) Insomnia (Chronic 12/13/14) Right shoulder pain (Chronic) Dizziness and giddiness (Chronic) Chronic insomnia (Chronic) Vitamin deficiency (Chronic) Right knee pain (Chronic) Acute on chronic pancreatitis (Resolved) Hypercalcemia (Resolved) Abdominal pain of multiple sites (Inactive) Ankle fracture, left (Inactive) DVT (deep venous thrombosis) (Inactive 11/17/13) Leukocytosis (Inactive) Weight gain (Inactive 12/13/14) Past Surgical History (Last Updated 03/06/19 @ 16:04 by Nicholas Vazquez DO) Pancreatic duct stricture (Acute) History of adenoidectomy (Inactive) History of appendectomy (Inactive) History of cholecystectomy (Inactive) History of colonoscopy (Inactive 04/11/15) History of hysterectomy (Inactive) History of left knee replacement (Inactive) History of open reduction and internal fixation (ORIF) procedure (Inactive) History of tonsillectomy (Inactive) Status post arthroscopic surgery of right knee (Inactive) Family History (Last Reviewed 02/04/18 @ 13:21 by Stacey Bautista RN) Unknown Malignant neoplasm of breast Mother Chronic obstructive pulmonary disease Father of unknown cause Social History (Last Updated 06/11/18 @ 12:33 by Prakash Hernandez MD) Denies tobacco or alcohol Ambulates independently Lives at home with Medical - H&P: Meds Home Medications Medication Instructions Recorded Confirmed Type cholecalciferol (vitamin D3) 2,000 4,000 unit PO QDAY tab 04/25/15 11/04/19 History unit tablet digoxin 125 mcg (0.125 mg) tablet 125 mcg PO MOTUWETHFRSA tab 04/25/15 11/04/19 History furosemide 20 mg tablet 20 mg PO QDAY 04/28/17 11/04/19 History potassium chloride 10 mEq 10 meq PO QDAY 04/28/17 11/04/19 History capsule,extended release pramipexole 0.25 mg tablet 0.75 mg PO QHS tab 01/26/18 11/04/19 History carvedilol 6.25 mg tablet 6.25 mg PO BID #180 tab 05/26/18 11/04/19 Rx carbidopa ER 50 mg-levodopa 200 mg 1 tab PO BID 06/11/18 11/04/19 History tablet,extended release fenofibrate 160 mg tablet 160 mg PO QDAY #90 tab 06/12/18 11/04/19 Rx Amitriptyline [Elavil] 1 tab PO HS 10/19/19 01/02/20 History Escitalopram [Lexapro] 1 tab PO HS 08/21/19 11/04/19 History Gabapentin [Neurontin] 1 tab PO TID 08/21/19 11/04/19 History Insulin Aspart [Novolog Flexpen] 2 - 20 unit SUBCUT AC 08/21/19 11/04/19 History Insulin Glargine, Human [Lantus] 70 units SQ HS 08/21/19 11/04/19 History Lipase/Protease/Amylase [Creon Dr 1 cap PO BID 08/21/19 11/04/19 History 24,000 Units Capsule] Metoprolol Succinate [Toprol Xl] 12.5 mg PO BID 08/21/19 11/04/19 History Dent 3 Fish Oil Softgel 3,000 mg PO BID 08/21/19 11/04/19 History oxyCODONE HCL [Oxycodone HCl] 1 tab PO Q6HP PRN 08/21/19 08/21/19 History oxyCODONE HCL [Roxicodone] 5 - 10 mg PO Q4HP PRN #20 tab 08/22/19 Rx Apixaban [Eliquis] 5 mg PO BID 11/04/19 11/04/19 History Ferrous Sulfate [Iron] 325 mg PO BID 11/04/19 11/04/19 History Pantoprazole [Protonix] 40 mg PO AC 11/04/19 11/04/19 History Allergies Allergy/AdvReac Type Severity Reaction Status Date / Time Wdbygly-Whr-Ixy Reductase AdvReac Severe Myalgias Verified 11/04/19 15:35 Inhibitor lisinopril AdvReac Intermediate cough Verified 11/04/19 15:35 Sulfa (Sulfonamide AdvReac Mild Rash Verified 11/04/19 15:35 Antibiotics) Medical - H&P: Exam - Constitutional Vitals: Temp Pulse Resp BP Pulse Ox 97.2 F 29 L 23 H 102/69 61 L 11/04/19 15:35 11/04/19 22:24 11/04/19 22:16 11/04/19 22:16 11/04/19 22:24 Exam: General: Alert, Awake, No acute Distress, obese Eyes/N/T: EOMI, PERRL, Head/Neck: neck supple, normocephalic atraumatic CV: irreg irreg, 3/6 SM Pulm: mild fine basilar rales b/l, no wheezing Abd: soft, nontender, +BS x4 Ext: no clubbing/cyanosis, trace b/l LE edema Neuro: Alert, no focal deficits, moves all extremities, CN 2-12 grossly intact, symmetrical strength b/l upper/lower, sensations intact b/l upper/lower Skin: warm/dry Medical - H&P: Reslt - Labs CBC & Chem 7: 11/04/19 16:20 11/04/19 16:20 Labs: Short CBC 11/04/19 Range/Units 16:20 WBC 20.2 H (4.50-11.00) K/mcL Hgb 11.0 L (11.2-15.7) g/dL Hct 36.5 (34.1-44.9) % Plt Count 398 (140-440) K/mcL BMP 11/04/19 16:20 Sodium 130 L Potassium 4.6 Chloride 91 L Carbon Dioxide 21 L BUN 16 Creatinine 0.8 Glucose 53 L Calcium 8.7 Cardiac Enzymes 11/04/19 Range/Units 16:20 Troponin T < 0.01 (0-0.03) ng/ml Liver Function 11/04/19 Range/Units 16:20 Total Bilirubin 0.7 (0.0-1.0) mg/dL AST 17 (0-37) U/l ALT < 5 (0-40) U/l Alkaline Phosphatase 109 (39-117) U/L Albumin 2.5 L (3.2-5.2) gm/dL Urine 11/04/19 Range/Units 20:16 Urine Color Yellow Urine Appearance Hazy Urine pH 6.0 (5.0-9.0) Ur Specific [place] 1.011 (1.000-1.035) Urine Protein Neg (NEG) mg/dL Urine Glucose (UA) Negative (NEG) mg/dL Medical - H&P: A/P - Narrative A/P Narrative: A: *UTI (recurrent, h/o ESBL e. coli): *Hypotension: responded to IVF's, suspect meds (coreg/toprol/lasix/amitriptyline/narcotics) -runs low chronically (looking at old notes) -lactate ok *Gen weak/lightheaded: 2/2 above *Hyponatremia, chronic: *Leukocytosis, chronic: Recommended to see hematology last admission but has not seen them *Afib: on dig/BB/BB *DM: low BG at night, not eating bedtime snack at home *Microcytic anemia, chronic: *Chronic pancreatitis: Follows with Dr. Patel in [place] -chronic pain on narcotics *Parkinson's: Follows with Dr. Baker *HTN: on BB/BB/lasix *GERD: *Depression: P: -Merrem, pending UC -hold coreg, change toprol to lopressor but holding both tonight, clarify dose amitriptyline and decrease if necessary -cont dig, prn lopressor - -basal and SSI, nighttime snack -f/u with urology for continued w/u outpt -f/u with hematology outpt, peripheral smear done last admission nonspecific findings -ppx: home eliquis/home ppi full code
[2019-11-05 00:04] LABS: INR 1.6 (0.9-1.1); Prothrombin Time 18.6 sec (11.9-14.5)
[2019-11-05] MEDS ORDERED: LACTULOSE 20 GM/30 ML ORAL.SOL PO PRN (00:28)
[2019-11-05] MEDS ORDERED: ONDANSETRON 4 MG/2 ML VIAL IV PRN (00:28)
[2019-11-05] MEDS ORDERED: POTASSIUM CHLORIDE 40 MEQ in DEXTROSE 5% IN WATER 500 ML IV PRN (00:28)
[2019-11-05] MEDS ORDERED: IPRATROPIUM/ALBUTEROL 3 ML AMPUL.NEB NEB PRN (00:28)
[2019-11-05] MEDS ORDERED: POTASSIUM CHLORIDE 20 MEQ TABLET PO PRN ×2 (00:28)
[2019-11-05] MEDS ORDERED: DEXTROSE 50% 50 ML VIAL IV PRN (00:28)
[2019-11-05] MEDS ORDERED: SENNOSIDES 1 TABLET PO PRN (00:28)
[2019-11-05] MEDS ORDERED: METOPROLOL TARTRATE 5 MG/5 ML VIAL IV PRN (00:28)
[2019-11-05] MEDS ORDERED: DIGOXIN 125 MCG TABLET PO SCH (00:28)
[2019-11-05] MEDS ORDERED: ACETAMINOPHEN 325 MG TABLET PO PRN (00:28)
[2019-11-05] MEDS ORDERED: POLYETHYLENE GLYCOL 3350 17 GM PACKET PO PRN (00:28)
[2019-11-05] MEDS ORDERED: DEXTROSE 31 GM ORAL.SUSP PO PRN (00:28)
[2019-11-05 02:00] LABS: Sodium, Urine Random < 20 mmol/L
[2019-11-05] MEDS: MEROPENEM 1 GM in 0.9 % SODIUM CHLORIDE 50 ML IV SCH ×4 (02:00→21:25)
[2019-11-05 02:37] LABS: Osmolality,Urine 266 mOsm/kg (80-1000)
[2019-11-05] MEDS ORDERED: oxyCODONE HCL 5 MG TABLET PO SCH (02:43)
[2019-11-05] MEDS ORDERED: oxyCODONE HCL 5 MG TABLET PO PRN (02:45)
[2019-11-05] MEDS ORDERED: oxyCODONE HCL 5 MG TABLET PO ONE (02:47)
--- NOTE | 2019-11-05 03:52 | XRay Report ---
CLINICAL INFORMATION: hypotension COMPARISON: 03/06/2019 FINDINGS: Heart is mildly enlarged, but unchanged. Mediastinum and pulmonary vessels are normal. Moderate consolidated atelectasis or infiltrate has developed in the left base (retrocardiac region) noted. Small left pleural effusion appreciated IMPRESSION: Moderate consolidated atelectasis or infiltrate in the left base with small left pleural effusion. Stable cardiomegaly Interpreted and Authenticated by: Remberto Henriquez 11/05/19
[2019-11-05] MEDS: 0.9 % SODIUM CHLORIDE 10 ML SYRINGE IV SCH ×3 (05:53→21:27)
--- NOTE | 2019-11-05 07:26 | Internal Med Progress Note ---
Medical - PN: Subj Patient information: Note initiated : 11/05/19 at 7:21 am Service Date, if different from initiated Date: [] Patient: Shweta Rodriguez a 74 y/o F admitted on 11/05/19 for Dizziness, low BP. Chief Complaint: [] Interval history: Ms. Rodriguez is a 74 year old F Who presents the ED with low blood pressure sent in by her measurement psychologist. She was at the urologist today regarding chronic urinary tract infections when she was noted to have low blood pressure. She called her measurement psychologist office who told her to come to the ED. She says she has been feeling weaker than usual for the past 2 to 3 days with increased dizziness lightheadedness. Her systolic blood pressures were 70s and 80s. She is on several beta-blockers as well as digoxin atrial fibrillation. Heart rate was 90s. Oxygenating okay on room air. Lactate level is okay. Opponent was negative. Is a chronic leukocytosis. Chest x-ray unremarkable. Blood glucose was low she says her blood glucose runs 50s and 60s and night low 100s during the day. She does not always have a nighttime snack. Patient with nausea. She finished Macrobid on Friday. Recent urine cultures from earlier in the year grew E. coli, ESBL. 1/3 blood pressure is better overnight, still systolics in the 90s to low 100s. Still feels weak and debilitated. Has chronic abdominal pain. No other new complaints. Some nausea earlier which is resolved. Some chills. Review of Systems: denies headache/fever/vomiting/chest or abdominal pain/cough/dyspnea/diarrhea. Otherwise see above. - Constitutional Vitals: Vital Signs Temp Pulse Resp BP Pulse Ox 98.0 F 119 H 23 H 110/60 97 11/05/19 05:51 11/05/19 06:21 11/05/19 06:21 11/05/19 05:51 11/05/19 06:21 Period Temp Pulse Resp BP Sys/Lopez Pulse Ox Last 24 Hr 97.2 F-98.0 F 29-119 12-28 55-111/26-84 61-99 Intake and Output 11/04/19 11/05/19 11/05/19 21:59 05:59 13:59 Intake Total 500 1050 Output Total 225 Balance 500 825 Weight 79.379 kg 82.01 kg Intake & Output: Intake & Output 11/04/19 11/05/19 11/05/19 21:59 05:59 13:59 Intake Total 500 1050 Output Total 225 Balance 500 825 Weight 79.379 kg 82.01 kg Intake: IV 500 1050 Sodium Chloride 0.9% 1,000 ml @ 1000 Wide Open IV [facility] Rx#: [id number] Sodium Chloride 0.9% 500 ml @ 500 Wide Open IV [facility] Rx#: [id number] Merrem 1 gm In Sodium Chloride 50 0.9% 50 ml @ 100 mls/hr IV Q8H [facility] Rx#:[id number] Output: Void Amount 225 Other: Urine Color Dark Yellow Urine Odor Normal Stool Size Moderate Stool Color Brown Green # Bowel Movements 1 Exam: General: Alert, Awake, No acute Distress, obese Eyes/N/T: EOMI, Head/Neck: neck supple, CV: irreg irreg, 3/6 SM Pulm: mild fine basilar rales b/l, no wheezing Abd: soft, +BS x4 Ext: no clubbing/cyanosis, trace b/l LE edema Neuro: Alert, no focal deficits, moves all extremities, Skin: warm/dry Medical - PN: Obj Da - Labs CBC & Chem 7: 11/05/19 05:43 11/05/19 05:43 Labs: Abnormal Lab Results 11/04/19 11/04/19 11/04/19 23:08 20:16 16:20 WBC Hgb MCV MCH MCHC RDW Gran % Lymph % (Auto) Gran # [place] # (Auto) Seg Neutrophils % 87 H Lymphocytes % 9 L Hypochromasia 1+ A Anisocytosis 1+ A Microcytosis 1+ A PT 18.6 H INR 1.6 H Sodium Chloride Carbon Dioxide Anion Gap Glucose Albumin Globulin Albumin/Globulin Ratio Urine Urobilinogen 2.0 A Ur Leukocyte Esterase 250 A Urine RBC 4 H Urine WBC 28 H Ur Squamous Epith Cells 16 H Amorphous Crystals Few A Urine Bacteria Mod A 11/04/19 11/04/19 16:20 16:20 WBC 20.2 H Hgb 11.0 L MCV 72.9 L MCH 22.0 L MCHC 30.1 L RDW 20.9 H Gran % 82.5 H Lymph % (Auto) 10.0 L Gran # 16.68 H [place] # (Auto) 1.28 H Seg Neutrophils % Lymphocytes % Hypochromasia Anisocytosis Microcytosis PT INR Sodium 130 L Chloride 91 L Carbon Dioxide 21 L Anion Gap 18.0 H Glucose 53 L Albumin 2.5 L Globulin 4.0 H Albumin/Globulin Ratio 0.6 L Urine Urobilinogen Ur Leukocyte Esterase Urine RBC Urine WBC Ur Squamous Epith Cells Amorphous Crystals Urine Bacteria Meds: Medications Acetaminophen (Tylenol) 650 mg PO Q6HP PRN PRN Reason: PAIN/FEVER > 101 Albuterol/Ipratropium (Duoneb) 3 ml NEB Q4HP PRN PRN Reason: Shortness Of Breath Amitriptyline HCl (Elavil) 10 mg PO HS [facility] Lipase/Protease/Amylase (Creon) 1 cap PO BIDCC [facility] Apixaban (Eliquis) 5 mg PO BID [facility] Carbidopa/Levodopa (Sinemet Cr 50/200) 1 tab PO BID [facility] Dextrose (Dextrose 50%) 0 ml IV UD PRN PRN Reason: Hypoglycemia Diagnostic Test (Pha) (Accu-Chek) 1 each FS ACHS [facility] Digoxin (Lanoxin) 125 mcg PO MoTuWeThFrSa@1400 [facility] Docusate Sodium (Colace) 100 mg PO BID [facility] Escitalopram Oxalate (Lexapro) 10 mg PO HS [facility] Famotidine (Pepcid) 20 mg PO BID [facility] Fish Oil (Fish Oil) 3,000 mg PO BID [facility] Furosemide (Lasix) 20 mg PO QDAY [facility] Gabapentin (Neurontin) 300 mg PO TID [facility] Glucose (Insta-Glucose) 15 gm PO PRN PRN PRN Reason: Hypoglycemia Potassium Chloride 40 meq/ (Dextrose) 520 mls @ 130 mls/hr IV UD PRN PRN Reason: Potassium < 3 Magnesium Sulfate (Magnesium Sulfate) 2 gm in 50 mls @ 50 mls/hr IV UD PRN PRN Reason: Magnesium </= 1.6 Meropenem 1 gm/ Sodium (Chloride) 50 mls @ 100 mls/hr IV Q8H [facility]; Protocol Last Infusion: 11/05/19 04:59 Dose: Infused Documented by: Insulin Glargine (Lantus) 50 unit SQ HS [facility] Insulin Human Lispro (Humalog) 0 unit SQ ACHS [facility]; Protocol Lactulose (Cephulac) 20 gm PO DAILYP PRN PRN Reason: Constipation Metoprolol Tartrate (Lopressor) 5 mg IV Q2HP PRN PRN Reason: Tachyarrhythmias HR>110 Last Admin: 11/05/19 02:00 Dose: 5 mg Documented by: Ondansetron HCl (Zofran) 4 mg IV Q4HP PRN PRN Reason: Nausea And Vomiting Oxycodone HCl (Roxicodone) 5 mg PO Q8HP PRN; Protocol PRN Reason: Per Pain Protocol Polyethylene Glycol (Miralax) 17 gm PO DAILYP PRN PRN Reason: Constipation Potassium Chloride (Kdur) 40 meq PO UD PRN PRN Reason: Potssium is 3-3.5 Potassium Chloride (Kdur) 40 meq PO UD PRN PRN Reason: Potassium < 3 Potassium Chloride (Kdur) 10 meq PO QAC [facility] Pramipexole Dihydrochloride (Mirapex) 0.75 mg PO HS [facility] Senna (Senokot) 2 tab PO DAILYP PRN PRN Reason: Constipation Sodium Chloride (Saline Flush) 10 ml IV Q8 [facility] Last Admin: 11/05/19 05:53 Dose: 10 ml Documented by: Medical - PN: A/P - Time Spent With Patient Total time spent is greater than 50% in coordination of care (as documented) at patient's floor/unit and/or counseling patient: - Narrative A/P Narrative: A: *UTI (recurrent, h/o ESBL e. coli): *Hypotension: responded to IVF's, suspect meds (co reg/toprol/lasix/amitriptyline/narcotics) -runs low chronically (looking at old notes) -lactate ok *Gen weak/lightheaded: 2/2 above *Hyponatremia, chronic: -FEUrea suggestive of prerenal *Hypomag: *Leukocytosis, chronic: Recommended to see hematology last admission but has not seen them -no bandemia, Improved *Afib: on dig/coreg/toprol *DM: low BG at night, not eating bedtime snack at home *Microcytic anemia, chronic: *Chronic pancreatitis: Follows with Dr. Patel in [place] -chronic pain on narcotics *Parkinson's: Follows with Dr. Baker *HTN: on BB/BB/lasix *GERD: *Depression: P: -Merrem given h/o ESBL. Dr. Gregg recommends going to zosyn and imaging to r/o pyelonephritis, if just cystis may eventually transition to macrobid -pending UC -hold coreg, change toprol to lopressor, clarify dose amitriptyline and decrease if necessary -cont dig, prn lopressor - -basal (decreased) and SSI, nighttime snack -f/u with urology for continued w/u outpt -f/u with hematology outpt, peripheral smear done last admission nonspecific findings -ppx: home eliquis/home ppi full code Medical - PN: Qual - Stroke Symptom Onset Unknown: No - VTE Deep Vein Thrombosis/Pulmonary Embolism Present on Admission: No
[2019-11-05] MEDS: INSULIN LISPRO 1 UNIT/0.01 ML UNIT SQ SCH ×4 (07:58→21:27)
[2019-11-05 07:59] LABS: Hematocrit 32.8 % (34.1-44.9); Hemoglobin 9.9 g/dL (11.2-15.7); Mean Cell Volume 72.6 fL (80.0-100.0); Mean Corpuscular HGB Conc 30.2 g/dL (31.0-36.0); Platelet Count 362 K/mcL (140-440); RBC 4.52 M/mcL (3.59-5.38); Red Cell Distribution Width 21.1 % (11.5-14.5); WBC 14.3 K/mcL (4.50-11.00)
[2019-11-05] MEDS: POTASSIUM CHLORIDE 10 MEQ TABLET PO SCH (07:59)
[2019-11-05] MEDS: LIPASE/PROTEASE/AMYLASE 1 CAP CAPSULE PO SCH ×2 (08:00→17:14)
[2019-11-05 08:18] LABS: ALT/SGPT 5 U/l (0-40); AST/SGOT 13 U/l (0-37); Albumin 2.2 gm/dL (3.2-5.2); Albumin/Globulin Ratio 0.6 (1.0-2.3); Alkaline Phosphatase 119 U/L (39-117); Bilirubin,Direct 0.3 mg/dL (0.0-0.3); Bilirubin,Total 0.7 mg/dL (0.0-1.0); Blood Urea Nitrogen 13 mg/dl (8-23); Calcium 8.5 mg/dl (8.6-10.4); Carbon Dioxide 20 mmol/L (22-30); Chloride 94 mmol/L (96-108); Globulin 3.6 gm/dL (2.2-3.7); Glomerular Filtration Rate 73; Glucose 225 mg/dL (70-105); Lactate Dehydrogenase 349 U/L (94-250); Phosphorous 2.6 mg/dL (2.7-4.5); Triglycerides 111 mg/dl (<150); Uric Acid 4.5 mg/dL (2.5-8.0)
[2019-11-05 08:24] LABS: Anisocytosis 2+ (NONE SEEN); Band Neutrophils % 5 % (0-10); Eosinophils % (Manual) 1 % (0-7); Hypochromasia 1+ (NONE SEEN); Lymphocytes % 10 % (15-49); Microcytosis 1+ (NONE SEEN); Monocytes % (Manual) 4 % (1-12); Ovalocytes 1+ (NONE SEEN); Platelet Estimate NORMAL (NORMAL); RBC Morphology ABNORM (NORMAL); Segmented Neutrophils % 80 % (38-78)
[2019-11-05] MEDS: FISH OIL 1,000 MG CAPSULE PO SCH ×3 (08:40→21:27)
[2019-11-05] MEDS: FUROSEMIDE 20 MG TABLET PO SCH (08:40)
[2019-11-05] MEDS: APIXABAN 5 MG TABLET PO SCH ×2 (08:40→21:26)
[2019-11-05] MEDS: DOCUSATE SODIUM 100 MG CAPSULE PO SCH ×3 (08:40→21:45)
[2019-11-05] MEDS: FAMOTIDINE 20 MG TABLET PO SCH ×2 (08:41→21:26)
[2019-11-05] MEDS: METOPROLOL TARTRATE 25 MG TABLET PO SCH ×2 (08:41→21:26)
[2019-11-05] MEDS: GABAPENTIN 300 MG CAPSULE PO SCH ×3 (08:41→21:25)
[2019-11-05] MEDS: CARBIDOPA/LEVODOPA CR 25/100 TABLET PO SCH ×2 (11:32→21:26)
[2019-11-05] MEDS: SODIUM CHLORIDE 1 GM TABLET PO SCH ×3 (11:33→21:26)
[2019-11-05] MEDS ORDERED: IOPAMIDOL 100 ML BOTTLE IV ONE (12:51)
[2019-11-05] MEDS: DIGOXIN 125 MCG TABLET PO SCH (13:28)
--- NOTE | 2019-11-05 13:34 | Cat Scan Report ---
CLINICAL INFORMATION: Dizziness and low blood pressure. Possible sepsis COMPARISON: Abdomen and pelvic CT 08/20/2019 and 05/27/2019 TECHNIQUE: Following enteric contrast, 80 cc of Isovue-370 were injected intravenously, and 60 seconds later, 0.625 mm helical slices were obtained from the mid heart through the subtrochanteric regions. Following reconstruction, 2.5 mm sagittal, coronal and axial reformatted images were processed and reviewed at bone, lung and soft tissue windows. Five minutes later, 0.625 mm helical slices were obtained from the mid heart through the kidneys and viewed at soft tissue windows.The exam was performed using radiation dose optimization techniques including, but not limited to, automated exposure control, adjustment of the mA and/or kV according to patient size and use of iterative reconstruction technique. FINDINGS: Lung bases show a new small left pleural effusion with compressive atelectasis of the posterior and medial basilar segments of the left lower lobe. The heart is mildly enlarged with heavy calcific plaque in the coronary arteries. Abdominal images show mild fatty change within the liver. There is moderate periportal edema which is a new finding from previous study. A 9 mm enhancing well-defined lesion in the subcapsular right hepatic lobe is unchanged and likely a benign hemangioma The gallbladder is surgically absent. Intrahepatic and common bile ducts are normal caliber: 6 mm. The pancreatic stent has been removed since the CT over two months ago. The pancreatic duct remains normal in caliber. There is moderate inflammatory changes in the peripancreatic fat. A 3.2 cm pseudocyst has developed in the inferior pancreatic head /descending duodenal junction. There is also a large (10 cm) pseudocyst adjacent to the pancreatic tail extending to the inferior tip of the spleen. Moderate ascites is present with small amount in the perihepatic and perisplenic regions and paracolic gutter and a moderate amount of the deep true pelvis. There is moderate inflammation external to the main portal vein resulting in severe portal vein constriction. 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 Multiple enlarged retroperitoneal lymph nodes in the peripancreatic and periaortic region which show modest increase in size the prior study. They're likely reactive lymph nodes related to pancreatitis. The spleen, both kidneys, adrenal glands and aorta including aortic branches are unremarkable. The stomach, small and large bowel are grossly normal. No free air Pelvic images show urinary bladder is unremarkable. Hysterectomy changes noted. Region of both ovaries normal. Small paraumbilical hernia consisting only of mesenteric fat appreciated. 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 IMPRESSION: 1. Mild pancreatitis. Since comparison CT two months prior, a 3.2 cm pseudocyst has developed adjacent to the inferior pancreatic head. A second 10 cm pseudocyst is adjacent pancreatic tail extending to the inferior spleen. There is mild edema in the peripancreatic soft tissues and a moderate amount of ascites predominantly in the deep true pelvis. Multiple moderately enlarged retroperitoneal lymph nodes in the inferior peripancreatic and para-aortic aortic region showed modest increase in size and number. They likely represent benign reactive adenopathy related to pancreatic inflammation. 2. Moderate narrowing of the main portal vein ostensibly related to surrounding inflammation. 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 No definite thrombus identified. 3. Periportal edema - new from the previous study 4. 9 mm hyperattenuating lesion in the subcapsular right hepatic lobe unchanged likely hemangioma. Interpreted and Authenticated by: Remberto Henriquez 11/05/19
[2019-11-05] MEDS: MAGNESIUM SULFATE 2 GM/50 ML BAG IV PRN (15:10)
[2019-11-05] MEDS: PRAMIPEXOLE 0.25 MG TABLET PO SCH (21:25)
[2019-11-05] MEDS: ESCITALOPRAM 10 MG TABLET PO SCH (21:26)
[2019-11-05] MEDS: AMITRIPTYLINE 10 MG TABLET PO SCH (21:26)
[2019-11-05] MEDS: INSULIN GLARGINE, HUMAN 1 UNIT/0.01 ML SQ SCH (21:26)
[2019-11-06] MEDS: MEROPENEM 1 GM in 0.9 % SODIUM CHLORIDE 50 ML IV SCH ×3 (05:38→21:27)
[2019-11-06] MEDS: 0.9 % SODIUM CHLORIDE 10 ML SYRINGE IV SCH ×2 (06:08→14:15)
[2019-11-06] MEDS: INSULIN LISPRO 1 UNIT/0.01 ML UNIT SQ SCH ×4 (07:20→21:23)
[2019-11-06 07:23] LABS: Basophils # (Auto) 0.08 K/mcL (0.00-0.30); Basophils % (Auto) 0.6 % (0.0-2.0); Eosinophils # (Auto) 0.27 K/mcL (0.00-0.70); Eosinophils % (Auto) 1.9 % (0.0-7.0); Granulocytes % (Auto) 76.5 % (38.0-78.0); Hematocrit 33.9 % (34.1-44.9); Hemoglobin 10.4 g/dL (11.2-15.7); Lymphocytes # (Auto) 2.07 K/mcL (1.50-4.80); Lymphocytes % (Auto) 14.6 % (15.5-49.0); Mean Cell Volume 72.4 fL (80.0-100.0); Mean Corpuscular HGB Conc 30.7 g/dL (31.0-36.0); Mean Platelet Volume 8.7 fL (7.4-10.4); Monocytes # (Auto) 0.91 K/mcL (0.10-0.90); Monocytes % (Auto) 6.4 % (1.0-12.0); Platelet Count 429 K/mcL (140-440); RBC 4.68 M/mcL (3.59-5.38); Red Cell Distribution Width 21.3 % (11.5-14.5); WBC 14.2 K/mcL (4.50-11.00)
[2019-11-06] MEDS: LIPASE/PROTEASE/AMYLASE 1 CAP CAPSULE PO SCH ×2 (07:25→17:09)
[2019-11-06] MEDS: POTASSIUM CHLORIDE 10 MEQ TABLET PO SCH (07:25)
--- NOTE | 2019-11-06 07:32 | Internal Med Progress Note ---
Medical - PN: Subj Patient information: Note initiated : 11/06/19 at 7:28 am Service Date, if different from initiated Date: [] Patient: Shweta Rodriguez a 74 y/o F admitted on 11/05/19 for Dizziness, low BP. Chief Complaint: [] Interval history: Ms. Rodriguez is a 74 year old F Who presents the ED with low blood pressure sent in by her rn float. She was at the urologist today regarding chronic urinary tract infections when she was noted to have low blood pressure. She called her rn float office who told her to come to the ED. She says she has been feeling weaker than usual for the past 2 to 3 days with increased dizziness lightheadedness. Her systolic blood pressures were 70s and 80s. She is on several beta-blockers as well as digoxin atrial fibrillation. Heart rate was 90s. Oxygenating okay on room air. Lactate level is okay. Opponent was negative. Is a chronic leukocytosis. Chest x-ray unremarkable. Blood glucose was low she says her blood glucose runs 50s and 60s and night low 100s during the day. She does not always have a nighttime snack. Patient with nausea. She finished Macrobid on Friday. Recent urine cultures from earlier in the year grew E. coli, ESBL. 1/3 blood pressure is better overnight, still systolics in the 90s to low 100s. Still feels weak and debilitated. Has chronic abdominal pain. No other new complaints. Some nausea earlier which is resolved. Some chills. 1/4 Feeling better today. Did well with physical therapy today. No new complaints overnight events. Review of Systems: denies headache/fever/vomiting/chest or abdominal pain/cough/dyspnea/diarrhea. Otherwise see above. - Constitutional Vitals: Vital Signs Temp Pulse Resp BP Pulse Ox 97.5 F 68 16 107/67 96 11/06/19 00:00 11/05/19 17:01 11/06/19 02:00 11/06/19 04:01 11/06/19 04:54 Period Temp Pulse Resp BP Sys/Lopez Pulse Ox Last 24 Hr 97.3 F-99 F 68-103 16-20 83-116/58-89 93-98 Intake and Output 11/05/19 11/06/19 11/06/19 21:59 05:59 13:59 Intake Total 870 50 Output Total 400 300 150 Balance 470 -300 -100 Weight 83.915 kg Intake & Output: Intake & Output 11/05/19 11/06/19 11/06/19 21:59 05:59 13:59 Intake Total 870 50 Output Total 400 300 150 Balance 470 -300 -100 Weight 83.915 kg Intake: IV 150 50 Merrem 1 gm In Sodium Chloride 100 50 0.9% 50 ml @ 100 mls/hr IV Q8H [facility] Rx#:[id number] Oral 720 Output: Void Amount 400 150 Urine/Stool Mix 300 Other: Meal Dinner Percent of Meal Consumed 100% Feeding Ability Independent Urine Appearance Clear Clear Urine Color Dark Yellow Dark Yellow Dark Yellow Urine Odor Strong Foul Stool Size Moderate Large Stool Color Brown Brown Stool Consistency Loose Liquid # Voids 1 Exam: General: Alert, Awake, No acute Distress, obese Eyes/N/T: EOMI, Head/Neck: neck supple, CV: irreg irreg, 3/6 SM Pulm: mild fine basilar rales b/l, no wheezing Abd: soft, +BS x4 Ext: no clubbing/cyanosis, trace b/l LE edema Neuro: Alert, no focal deficits, moves all extremities, Skin: warm/dry Medical - PN: Obj Da - Labs CBC & Chem 7: 11/06/19 06:08 11/06/19 06:08 Labs: Abnormal Lab Results 11/06/19 11/05/19 11/05/19 06:08 15:20 05:43 WBC 14.2 H Hgb 10.4 L Hct 33.9 L MCV 72.4 L MCH 22.2 L MCHC 30.7 L RDW 21.3 H Gran % Lymph % (Auto) 14.6 L Gran # 10.87 H [place] # (Auto) 0.91 H Seg Neutrophils % Lymphocytes % RBC Morphology Hypochromasia Anisocytosis Microcytosis Ovalocytes ESR 37 H PT INR Sodium Chloride Carbon Dioxide Anion Gap Glucose Calcium Phosphorus Magnesium GGT Alkaline Phosphatase Lactate Dehydrogenase C-Reactive Protein 10.0 H Total Protein Albumin Globulin Albumin/Globulin Ratio Urine Urobilinogen Ur Leukocyte Esterase Urine RBC Urine WBC Ur Squamous Epith Cells Amorphous Crystals Urine Bacteria 11/05/19 11/05/19 11/04/19 05:43 05:43 23:08 WBC 14.3 H Hgb 9.9 L Hct 32.8 L MCV 72.6 L MCH 21.9 L MCHC 30.2 L RDW 21.1 H Gran % Lymph % (Auto) Gran # [place] # (Auto) Seg Neutrophils % 80 H Lymphocytes % 10 L RBC Morphology Abnorm A Hypochromasia 1+ A Anisocytosis 2+ A Microcytosis 1+ A Ovalocytes 1+ A ESR PT 18.6 H INR 1.6 H Sodium 128 L Chloride 94 L Carbon Dioxide 20 L Anion Gap Glucose 225 H Calcium 8.5 L Phosphorus 2.6 L Magnesium 1.3 L GGT 41 H Alkaline Phosphatase 119 H Lactate Dehydrogenase 349 H C-Reactive Protein Total Protein 5.8 L Albumin 2.2 L Globulin Albumin/Globulin Ratio 0.6 L Urine Urobilinogen Ur Leukocyte Esterase Urine RBC Urine WBC Ur Squamous Epith Cells Amorphous Crystals Urine Bacteria 11/04/19 11/04/19 11/04/19 20:16 16:20 16:20 WBC Hgb Hct MCV MCH MCHC RDW Gran % Lymph % (Auto) Gran # [place] # (Auto) Seg Neutrophils % 87 H Lymphocytes % 9 L RBC Morphology Hypochromasia 1+ A Anisocytosis 1+ A Microcytosis 1+ A Ovalocytes ESR PT INR Sodium 130 L Chloride 91 L Carbon Dioxide 21 L Anion Gap 18.0 H Glucose 53 L Calcium Phosphorus Magnesium GGT Alkaline Phosphatase Lactate Dehydrogenase C-Reactive Protein Total Protein Albumin 2.5 L Globulin 4.0 H Albumin/Globulin Ratio 0.6 L Urine Urobilinogen 2.0 A Ur Leukocyte Esterase 250 A Urine RBC 4 H Urine WBC 28 H Ur Squamous Epith Cells 16 H Amorphous Crystals Few A Urine Bacteria Mod A 11/04/19 16:20 WBC 20.2 H Hgb 11.0 L Hct MCV 72.9 L MCH 22.0 L MCHC 30.1 L RDW 20.9 H Gran % 82.5 H Lymph % (Auto) 10.0 L Gran # 16.68 H [place] # (Auto) 1.28 H Seg Neutrophils % Lymphocytes % RBC Morphology Hypochromasia Anisocytosis Microcytosis Ovalocytes ESR PT INR Sodium Chloride Carbon Dioxide Anion Gap Glucose Calcium Phosphorus Magnesium GGT Alkaline Phosphatase Lactate Dehydrogenase C-Reactive Protein Total Protein Albumin Globulin Albumin/Globulin Ratio Urine Urobilinogen Ur Leukocyte Esterase Urine RBC Urine WBC Ur Squamous Epith Cells Amorphous Crystals Urine Bacteria Meds: Medications Acetaminophen (Tylenol) 650 mg PO Q6HP PRN PRN Reason: PAIN/FEVER > 101 Albuterol/Ipratropium (Duoneb) 3 ml NEB Q4HP PRN PRN Reason: Shortness Of Breath Last Admin: 11/05/19 09:59 Dose: 3 ml Documented by: Amitriptyline HCl (Elavil) 10 mg PO [facility] Last Admin: 11/05/19 21:26 Dose: 10 mg Documented by: Lipase/Protease/Amylase (Creon) 1 cap PO BIDCC [facility] Last Admin: 11/06/19 07:25 Dose: 1 cap Documented by: Apixaban (Eliquis) 5 mg PO BID [facility] Last Admin: 11/05/19 21:26 Dose: 5 mg Documented by: Carbidopa/Levodopa (Sinemet Cr 25/100) 2 tab PO BID [facility] Last Admin: 11/05/19 21:26 Dose: 2 tab Documented by: Dextrose (Dextrose 50%) 0 ml IV UD PRN PRN Reason: Hypoglycemia Diagnostic Test (Pha) (Accu-Chek) 1 each FS ACHS [facility] Last Admin: 11/06/19 07:20 Dose: 1 each Documented by: Digoxin (Lanoxin) 125 mcg PO MoTuWeThFrSa@1400 [facility] Last Admin: 11/05/19 13:28 Dose: 125 mcg Documented by: Docusate Sodium (Colace) 100 mg PO BID [facility] Last Admin: 11/05/19 21:45 Dose: Not Given Documented by: Escitalopram Oxalate (Lexapro) 10 mg PO [facility] Last Admin: 11/05/19 21:26 Dose: 10 mg Documented by: Famotidine (Pepcid) 20 mg PO BID [facility] Last Admin: 11/05/19 21:26 Dose: 20 mg Documented by: Fish Oil (Fish Oil) 3,000 mg PO BID [facility] Last Admin: 11/05/19 21:27 Dose: Not Given Documented by: Furosemide (Lasix) 20 mg PO QDAY [facility] Last Admin: 11/05/19 08:40 Dose: 20 mg Documented by: Gabapentin (Neurontin) 300 mg PO TID [facility] Last Admin: 11/05/19 21:25 Dose: 300 mg Documented by: Glucose (Insta-Glucose) 15 gm PO PRN PRN PRN Reason: Hypoglycemia Potassium Chloride 40 meq/ (Dextrose) 520 mls @ 130 mls/hr IV UD PRN PRN Reason: Potassium < 3 Magnesium Sulfate (Magnesium Sulfate) 2 gm in 50 mls @ 50 mls/hr IV UD PRN PRN Reason: Magnesium </= 1.6 Last Infusion: 11/05/19 16:17 Dose: Infused Documented by: Meropenem 1 gm/ Sodium (Chloride) 50 mls @ 100 mls/hr IV Q8H [facility]; Protocol Last Infusion: 11/06/19 06:10 Dose: Infused Documented by: Insulin Glargine (Lantus) 50 unit SQ [facility] Last Admin: 11/05/19 21:26 Dose: 50 units Documented by: Insulin Human Lispro (Humalog) 0 unit SQ [facility]; Protocol Last Admin: 11/06/19 07:20 Dose: Not Given Documented by: Lactulose (Cephulac) 20 gm PO DAILYP PRN PRN Reason: Constipation Metoprolol Tartrate (Lopressor) 5 mg IV Q2HP PRN PRN Reason: Tachyarrhythmias HR>110 Metoprolol Tartrate (Lopressor) 25 mg PO BID [facility] Last Admin: 11/05/19 21:26 Dose: 25 mg Documented by: Ondansetron HCl (Zofran) 4 mg IV Q4HP PRN PRN Reason: Nausea And Vomiting Oxycodone HCl (Roxicodone) 5 mg PO Q8HP PRN; Protocol PRN Reason: Per Pain Protocol Polyethylene Glycol (Miralax) 17 gm PO DAILYP PRN PRN Reason: Constipation Potassium Chloride (Kdur) 40 meq PO UD PRN PRN Reason: Potssium is 3-3.5 Potassium Chloride (Kdur) 40 meq PO UD PRN PRN Reason: Potassium < 3 Potassium Chloride (Kdur) 10 meq PO QAMCC [facility] Last Admin: 11/06/19 07:25 Dose: 10 meq Documented by: Pramipexole Dihydrochloride (Mirapex) 0.75 mg PO [facility] Last Admin: 11/05/19 21:25 Dose: 0.75 mg Documented by: Senna (Senokot) 2 tab PO DAILYP PRN PRN Reason: Constipation Sodium Chloride (Saline Flush) 10 ml IV Q8 [facility] Last Admin: 11/06/19 06:08 Dose: 10 ml Documented by: Sodium Chloride (Sodium Chloride) 1 gm PO TID [facility] Stop: 11/06/19 09:01 Last Admin: 11/05/19 21:26 Dose: 1 gm Documented by: Medical - PN: A/P - Time Spent With Patient Total time spent is greater than 50% in coordination of care (as documented) at patient's floor/unit and/or counseling patient: - Narrative A/P Narrative: A: *UTI (recurrent, h/o ESBL e. coli): *Hypotension: responded to IVF's, suspect meds (cor eg/toprol/lasix/amitriptyline/narcotics). IMproved -runs low chronically (looking at old notes) -lactate ok *Gen weak/lightheaded: 2/2 above *Hyponatremia, chronic: improved -FEUrea suggestive of prerenal *Hypomag: improved *Leukocytosis, chronic: Recommended to see hematology last admission but has not seen them -no bandemia, Improved for now *Afib: on dig/coreg/toprol *DM: low BG at night at home, not eating bedtime snack at home *Microcytic anemia, chronic: *Chronic pancreatitis: Follows with Dr. Patel in [place] -chronic pain on narcotics *Parkinson's: Follows with Dr. Baker *HTN: on BB/BB/lasix *GERD: *Depression: P: -Merrem given h/o ESBL, pending UC -hold coreg, change toprol to lopressor, clarify dose amitriptyline and decrease if necessary -cont dig, prn lopressor - -basal (decreased) and SSI, nighttime snack -f/u with urology for continued w/u outpt -f/u with hematology outpt, peripheral smear done last admission nonspecific findings -ppx: home eliquis/home ppi full code Medical - PN: Qual - Stroke Symptom Onset Unknown: No - VTE Deep Vein Thrombosis/Pulmonary Embolism Present on Admission: No
[2019-11-06 07:37] LABS: ALT/SGPT < 5 U/l (0-40); AST/SGOT 8 U/l (0-37); Albumin 2.5 gm/dL (3.2-5.2); Albumin/Globulin Ratio 0.7 (1.0-2.3); Alkaline Phosphatase 89 U/L (39-117); Bilirubin,Direct 0.2 mg/dL (0.0-0.3); Bilirubin,Total 0.6 mg/dL (0.0-1.0); Blood Urea Nitrogen 9 mg/dl (8-23); Calcium 8.6 mg/dl (8.6-10.4); Carbon Dioxide 24 mmol/L (22-30); Chloride 95 mmol/L (96-108); Globulin 3.4 gm/dL (2.2-3.7); Glomerular Filtration Rate 95; Glucose 88 mg/dL (70-105); Lactate Dehydrogenase 183 U/L (94-250); Phosphorous 2.5 mg/dL (2.7-4.5); Triglycerides 103 mg/dl (<150); Uric Acid 3.8 mg/dL (2.5-8.0)
[2019-11-06] MEDS: DOCUSATE SODIUM 100 MG CAPSULE PO SCH ×2 (08:22→21:23)
[2019-11-06] MEDS: FISH OIL 1,000 MG CAPSULE PO SCH ×2 (08:22→21:30)
[2019-11-06] MEDS: METOPROLOL TARTRATE 25 MG TABLET PO SCH ×2 (08:22→21:22)
[2019-11-06] MEDS: FUROSEMIDE 20 MG TABLET PO SCH (08:22)
[2019-11-06] MEDS: APIXABAN 5 MG TABLET PO SCH ×2 (08:22→21:30)
[2019-11-06] MEDS: SODIUM CHLORIDE 1 GM TABLET PO SCH (08:23)
[2019-11-06] MEDS: CARBIDOPA/LEVODOPA CR 25/100 TABLET PO SCH ×2 (08:23→21:30)
[2019-11-06] MEDS: GABAPENTIN 300 MG CAPSULE PO SCH ×3 (08:23→21:22)
[2019-11-06] MEDS: FAMOTIDINE 20 MG TABLET PO SCH ×2 (08:23→21:30)
[2019-11-06] MEDS ORDERED: FLU VACC QS2019-20(6MOS UP)/PF 60 MCG/0.5 ML SYRINGE IM ONE (10:00)
--- NOTE | 2019-11-06 10:34 | Discharge Summary ---
Medical - DS: Prov Patient information: Note initiated : 11/06/19 at 10:31 am Service Date, if different from initiated Date: [] Patient: Shweta Rodriguez 74 y/o F admitted on 11/05/19 for Dizziness, low BP. Chief Complaint: [] Date of admission: 11/05/19 00:29 Discharge date: 11/09/19 Primary care physician: Wade Mckoy MD Consults: 11/04/19 Consult to Physician [CONS] Stat Comment: Consulting Provider: Michael Kaur Reason For Exam: Physician to Consult Medical - DS: Meds - Discharge Medications Prescriptions: Insulin Glargine, Human [Lantus] 28 unit SQ HS #1 unit Metoprolol Tartrate [Lopressor] 12.5 mg PO BID #30 tab Nitrofurantoin Sr [Macrobid] 100 mg PO BID #3 cap Insulin Aspart [Novolog Flexpen] 2 - 20 unit SUBCUT AC #1 vial Active and Home Medications: Home Medications cholecalciferol (vitamin D3) 2,000 unit tablet 4,000 unit PO QDAY tab 04/25/15 [History Confirmed 11/04/19 Last Taken 08/20/19] digoxin 125 mcg (0.125 mg) tablet 125 mcg PO MOTUWETHFRSA tab 04/25/15 [History Confirmed 11/04/19 Last Taken 08/20/19] furosemide 20 mg tablet 20 mg PO QDAY 04/28/17 [History Confirmed 11/04/19 Last Taken 08/20/19] potassium chloride 10 mEq capsule,extended release 10 meq PO QDAY 04/28/17 [History Confirmed 11/04/19 Last Taken 08/20/19] pramipexole 0.25 mg tablet 0.75 mg PO QHS tab 01/26/18 [History Confirmed 11/04/19 Last Taken 08/20/19] carvedilol 6.25 mg tablet 6.25 mg PO BID #180 tab 05/26/18 [Rx Confirmed 11/04/19 Last Taken 08/20/19] carbidopa ER 50 mg-levodopa 200 mg tablet,extended release 1 tab PO BID 06/11/18 [History Confirmed 11/04/19 Last Taken 08/20/19] fenofibrate 160 mg tablet 160 mg PO QDAY #90 tab 06/12/18 [Rx Confirmed 11/04/19 Last Taken 08/20/19] Amitriptyline [Elavil] 1 tab PO HS 08/21/19 [History Confirmed 11/04/19 Last Taken Unknown] Escitalopram [Lexapro] 1 tab PO HS 08/21/19 [History Confirmed 11/04/19 Last Taken Unknown] Gabapentin [Neurontin] 1 tab PO TID 08/21/19 [History Confirmed 11/04/19 Last Taken Unknown] Insulin Aspart [Novolog Flexpen] 2 - 20 unit SUBCUT AC 08/21/19 [History Confirmed 11/04/19 Last Taken 08/17/19] Insulin Glargine, Human [Lantus] 70 units SQ HS 08/21/19 [History Confirmed 11/04/19 Last Taken 08/19/19] Lipase/Protease/Amylase [Krunal Rocha 24,000 Units Capsule] 1 cap PO BID 08/21/19 [History Confirmed 11/04/19 Last Taken 08/20/19] Metoprolol Succinate [Toprol Xl] 12.5 mg PO BID 08/21/19 [History Confirmed 11/04/19 Last Taken Unknown] [place]uel[place] 3 Fish Oil Softgel 3,000 mg PO BID 08/21/19 [History Confirmed 11/04/19 Last Taken 08/18/19] oxyCODONE HCL [Oxycodone HCl] 1 tab PO Q6HP PRN 08/21/19 [History Confirmed 08/21/19 Last Taken Unknown] oxyCODONE HCL [Roxicodone] 5 - 10 mg PO Q4HP PRN #20 tab 08/22/19 [Rx Last Taken Unknown] Apixaban [Eliquis] 5 mg PO BID 11/04/19 [History Confirmed 11/04/19 Last Taken Unknown] Ferrous Sulfate [Iron] 325 mg PO BID 11/04/19 [History Confirmed 11/04/19 Last Taken Unknown] Pantoprazole [Protonix] 40 mg PO AC 11/04/19 [History Confirmed 11/04/19 Last Taken Unknown] Home Medications cholecalciferol (vitamin D3) 2,000 unit tablet 4,000 unit PO QDAY tab 04/25/15 [History Confirmed 11/04/19 Last Taken 08/20/19] digoxin 125 mcg (0.125 mg) tablet 125 mcg PO MOTUWETHFRSA tab 04/25/15 [History Confirmed 11/04/19 Last Taken 08/20/19] furosemide 20 mg tablet 20 mg PO QDAY 04/28/17 [History Confirmed 11/04/19 Last Taken 08/20/19] potassium chloride 10 mEq capsule,extended release 10 meq PO QDAY 04/28/17 [History Confirmed 11/04/19 Last Taken 08/20/19] pramipexole 0.25 mg tablet 0.75 mg PO QHS tab 01/26/18 [History Confirmed 11/04/19 Last Taken 08/20/19] carbidopa ER 50 mg-levodopa 200 mg tablet,extended release 1 tab PO BID 06/11/18 [History Confirmed 11/04/19 Last Taken 08/20/19] fenofibrate 160 mg tablet 160 mg PO QDAY #90 tab 06/12/18 [Rx Confirmed 11/04/19 Last Taken 08/20/19] Amitriptyline [Elavil] 1 tab PO HS 08/21/19 [History Confirmed 11/04/19 Last Taken Unknown] Escitalopram [Lexapro] 1 tab PO HS 08/21/19 [History Confirmed 11/04/19 Last Taken Unknown] Gabapentin [Neurontin] 1 tab PO TID 08/21/19 [History Confirmed 11/04/19 Last Taken Unknown] Lipase/Protease/Amylase [Creon Dr 24,000 Units Capsule] 1 cap PO BID 08/21/19 [History Confirmed 11/04/19 Last Taken 08/20/19] [place] 3 Fish Oil Softgel 3,000 mg PO BID 08/21/19 [History Confirmed 11/04/19 Last Taken 08/18/19] oxyCODONE HCL [Oxycodone HCl] 1 tab PO Q6HP PRN 08/21/19 [History Confirmed 11/08/19 Last Taken Unknown] Apixaban [Eliquis] 5 mg PO BID 11/04/19 [History Confirmed 11/04/19 Last Taken Unknown] Ferrous Sulfate [Iron] 325 mg PO BID 11/04/19 [History Confirmed 11/04/19 Last Taken Unknown] Pantoprazole [Protonix] 40 mg PO AC 11/04/19 [History Confirmed 11/04/19 Last Taken Unknown] Metoprolol Tartrate [Lopressor] 12.5 mg PO BID #30 tab 11/06/19 [Rx Last Taken Unknown] Nitrofurantoin Sr [Macrobid] 100 mg PO BID #3 cap 11/08/19 [Rx Last Taken Unknown] Insulin Aspart [Novolog Flexpen] 2 - 20 unit SUBCUT AC #1 vial 11/09/19 [Rx Last Taken Unknown] Insulin Glargine, Human [Lantus] 28 unit SQ HS #1 unit 11/09/19 [Rx Last Taken Unknown] Medical - DS: Hosp Hospital Course: Ms. Rodriguez is a 74 year old F Who presents the ED with low blood pressure sent in by her ampoule examiner. She was at the urologist today regarding chronic urinary tract infections when she was noted to have low blood pressure. She called her ampoule examiner office who told her to come to the ED. She says she has been feeling weaker than usual for the past 2 to 3 days with increased dizziness lightheadedness. Her systolic blood pressures were 70s and 80s. She is on several beta-blockers as well as digoxin atrial fibrillation. Heart rate was 90s. Oxygenating okay on room air. Lactate level is okay. Opponent was negative. Is a chronic leukocytosis. Chest x-ray unremarkable. Blood glucose was low she says her blood glucose runs 50s and 60s and night low 100s during the day. She does not always have a nighttime snack. Patient with nausea. She finished Macrobid on Friday. Recent urine cultures from earlier in the year grew E. coli, ESBL. 1/3 blood pressure is better overnight, still systolics in the 90s to low 100s. Still feels weak and debilitated. Has chronic abdominal pain. No other new complaints. Some nausea earlier which is resolved. Some chills. / Feeling better today. Did well with physical therapy today. No new complaints overnight events. / Per nursing she had some confusion last night. Did not sleep as well. Feeling better today. States overall she is able to ambulate better without as much dizziness and lightheadedness. Mild chronic diarrhea 1/ Patient has low blood glucose overnight. In clarifying home insulin with the patient she says her home insulin prescription is 70 units but she does not take this. She takes 50. When she came into the hospital we decreased her from what we thought was 7 units nightly to 50. However this answers question of why she still low on blood glucose. He has some nausea from this. Other than this she has no new complaints she says she is able to get up by her self at this point so overall much improved. 11/09 Slept good last night. Overall feeling significantly improved and working better with physical therapy. She is getting some of her chronic abdominal pain from pancreatitis. And so she did not eat as much yesterday evening night probably resulting in the lower blood sugar this morning. White blood cell count is normalized, deemed stable A: *UTI (ESBL e. coli): *Hypotension: responded to IVF's, suspect meds (coreg/toprol/lasix/amitriptyline/narcotics). IMproved -runs low chronically (looking at old notes) -lactate ok; TSH/cortisol ok -Better after medication adjustment *Gen weak/lightheaded: 2/2 above. Improved *Hyponatremia Isotonic, mild chronic: stable -FEUrea suggestive of prerenal, including low urine sodium. pt is also noted to be on SSRI -TSH/cortisol ok *Hypomag: improved *Afib: on dig/coreg/toprol at home *DM with Hypoglycemia at night at home: not eating bedtime snack at home. better on lower basal insulin -Further clarification of medications is that her Lantus is listed at 70 units on her prescription but she only takes 50 at night. *RADHA: *Chronic pancreatitis: Follows with Dr. Patel in [place] -chronic pain on narcotics *Parkinson's: Follows with Dr. Baker *HTN: on BB/BB/lasix *GERD: *Depression: Discharge diagnosis: UTI hypotension generalized weakness lightheadedness hyponatremia Secondary discharge diagnosis: Atrial fibrillation diabetes chronic pancreatitis Parkinson's hypertension GERD depression - Time Spent with Patient Total time spent providing and/or coordinating discharge services: Greater than 30 minutes Medical - DS: Exam - Constitutional Vitals: Vital Signs Temp Pulse Pulse Resp BP BP Pulse Ox 11/06/19 08:01 98.1 F 116/84 98 11/06/19 08:00 96 H 16 97 11/06/19 07:02 115/78 96 11/06/19 06:02 98/85 11/06/19 05:05 118/77 97 11/06/19 04:54 96 11/06/19 04:01 107/67 98 11/06/19 03:01 100/63 95 11/06/19 02:02 88/77 98 11/06/19 02:00 16 93 11/06/19 01:00 93/68 94 11/06/19 00:00 97.5 F 16 87/67 93 11/05/19 23:00 83/67 95 11/05/19 22:00 110/67 95 11/05/19 21:00 106/73 94 11/05/19 20:02 98.2 F 18 106/70 97 11/05/19 19:48 109/69 11/05/19 19:00 90/62 98 11/05/19 18:00 16 104/80 98 11/05/19 17:01 68 92/68 97 11/05/19 16:03 81 95 11/05/19 16:01 99 F 81 16 116/89 96 11/05/19 16:00 116/89 11/05/19 15:00 78 97/70 98 11/05/19 14:34 83 102/70 98 11/05/19 14:00 97.3 F 79 84 16 96/63 98 11/05/19 13:02 103 H 107/67 98 11/05/19 12:00 89 108/70 97 11/05/19 11:00 92 H 19 92/64 93 Intake and Output 11/05/19 11/06/19 11/06/19 21:59 05:59 13:59 Intake Total 870 290 Output Total 400 300 150 Balance 470 -300 140 Intake: IV 150 50 Merrem 1 gm In Sodium Chloride 100 50 0.9% 50 ml @ 100 mls/hr IV Q8H [facility] Rx#:[id number] Oral 720 240 Output: Void Amount 400 150 Urine/Stool Mix 300 Other: Meal Dinner Breakfast Percent of Meal Consumed 100% 75% Feeding Ability Independent Urine Appearance Clear Clear Clear Urine Color Dark Yellow Dark Yellow Dark Yellow Urine Odor Strong Foul Stool Size Moderate Large Small Stool Color Brown Brown Brown Yellow Stool Consistency Loose Liquid Loose # Voids 1 1 # Bowel Movements 1 Weight 83.915 kg Medical - DS: Data Labs on day of discharge: Labs from last 24 hours 11/06/19 11/06/19 11/05/19 06:08 06:08 15:20 WBC 14.2 H RBC 4.68 Hgb 10.4 L Hct 33.9 L MCV 72.4 L MCH 22.2 L MCHC 30.7 L RDW 21.3 H Plt Count 429 MPV 8.7 Gran % 76.5 Lymph % (Auto) 14.6 L [place] % (Auto) 6.4 Eos % (Auto) 1.9 Baso % (Auto) 0.6 Gran # 10.87 H Lymph # (Auto) 2.07 [place] # (Auto) 0.91 H Eos # (Auto) 0.27 Baso # (Auto) 0.08 ESR 37 H Sodium 131 L Potassium 4.1 Chloride 95 L Carbon Dioxide 24 Anion Gap 12.0 BUN 9 Creatinine 0.5 L GFR Calculation 95 Glucose 88 Uric Acid 3.8 Calcium 8.6 Phosphorus 2.5 L Magnesium 1.9 Total Bilirubin 0.6 Direct Bilirubin 0.2 GGT 32 AST 8 ALT < 5 Alkaline Phosphatase 89 Lactate Dehydrogenase 183 C-Reactive Protein Total Protein 5.9 Albumin 2.5 L Globulin 3.4 Albumin/Globulin Ratio 0.7 L Triglycerides 103 11/05/19 11/05/19 05:43 05:43 WBC RBC Hgb Hct MCV MCH MCHC RDW Plt Count MPV Gran % Lymph % (Auto) [place] % (Auto) Eos % (Auto) Baso % (Auto) Gran # Lymph # (Auto) [place] # (Auto) Eos # (Auto) Baso # (Auto) ESR TNP Sodium Potassium Chloride Carbon Dioxide Anion Gap BUN Creatinine GFR Calculation Glucose Uric Acid Calcium Phosphorus Magnesium Total Bilirubin Direct Bilirubin GGT AST ALT Alkaline Phosphatase Lactate Dehydrogenase C-Reactive Protein 10.0 H Total Protein Albumin Globulin Albumin/Globulin Ratio Triglycerides Preliminary micro results at discharge 11/04/19 20:16 Urine Culture - Preliminary Urine - Clean Void Mid-Stream Gram negative bacillus Gram negative bacillus#2 11/05/19 00:54 Blood Culture - Preliminary Blood 11/05/19 01:05 Blood Culture - Preliminary Blood Medical - DS: A/P - Patient/Caregiver Discharge Instructions Activity: increase activity as tolerated Diet: Full Liquid (consistent carb & Low fat, advance as tolerated - has pancreatic chronic pain. add salt ) Additional Instructions: Follow-up with urology as needed. Patient is going to be admitted to the hospital under the care of the hospitalist (Dr. Kaur). All further treatment decisions and modalities to be carried out by the hospitalist. Prescriptions: Insulin Glargine, Human [Lantus] 35 units SQ HS #1 unit Metoprolol Tartrate [Lopressor] 12.5 mg PO BID #30 tab Nitrofurantoin Sr [Macrobid] 100 mg PO BID #3 cap - Follow up Plan Follow up with: Wade Mckoy MD [Primary Care Provider] - Disposition: Xfer SNF Prognosis: Fair Rehab Potential: Fair I certify that the patient requires SNF services: Yes Overall status at discharge: patient is progressing back to baseline Medical - DS: Qual - VTE Deep Vein Thrombosis/Pulmonary Embolism Present on Admission: No
[2019-11-06] MEDS ORDERED: SODIUM CHLORIDE 1 GM TABLET PO ONE (14:00)
[2019-11-06] MEDS: DIGOXIN 125 MCG TABLET PO SCH (14:15)
[2019-11-06] MEDS: INSULIN GLARGINE, HUMAN 1 UNIT/0.01 ML SQ SCH (21:22)
[2019-11-06] MEDS: ESCITALOPRAM 10 MG TABLET PO SCH (21:22)
[2019-11-06] MEDS: AMITRIPTYLINE 10 MG TABLET PO SCH (21:30)
[2019-11-06] MEDS: PRAMIPEXOLE 0.25 MG TABLET PO SCH (21:33)
[2019-11-06] MEDS ORDERED: MELATONIN 3 MG TABLET PO PRN (22:17)
[2019-11-07] MEDS: 0.9 % SODIUM CHLORIDE 10 ML SYRINGE IV SCH ×4 (01:03→20:30)
[2019-11-07] MEDS: MEROPENEM 1 GM in 0.9 % SODIUM CHLORIDE 50 ML IV SCH ×3 (05:44→22:07)
[2019-11-07 06:23] LABS: Basophils # (Auto) 0.07 K/mcL (0.00-0.30); Basophils % (Auto) 0.6 % (0.0-2.0); Eosinophils # (Auto) 0.32 K/mcL (0.00-0.70); Eosinophils % (Auto) 2.6 % (0.0-7.0); Hematocrit 33.9 % (34.1-44.9); Hemoglobin 10.2 g/dL (11.2-15.7); Lymphocytes # (Auto) 1.33 K/mcL (1.50-4.80); Lymphocytes % (Auto) 10.9 % (15.5-49.0); Mean Cell Volume 73.7 fL (80.0-100.0); Mean Corpuscular HGB Conc 30.1 g/dL (31.0-36.0); Mean Platelet Volume 8.6 fL (7.4-10.4); Monocytes # (Auto) 1.09 K/mcL (0.10-0.90); Monocytes % (Auto) 8.9 % (1.0-12.0); Platelet Count 407 K/mcL (140-440); Red Cell Distribution Width 21.2 % (11.5-14.5); WBC 12.2 K/mcL (4.50-11.00)
[2019-11-07 06:47] LABS: ALT/SGPT 5 U/l (0-40); AST/SGOT 8 U/l (0-37); Albumin 2.4 gm/dL (3.2-5.2); Albumin/Globulin Ratio 0.7 (1.0-2.3); Alkaline Phosphatase 83 U/L (39-117); Bilirubin,Direct 0.2 mg/dL (0.0-0.3); Bilirubin,Total 0.5 mg/dL (0.0-1.0); Calcium 8.7 mg/dl (8.6-10.4); Carbon Dioxide 23 mmol/L (22-30); Globulin 3.5 gm/dL (2.2-3.7); Glomerular Filtration Rate 90; Glucose 106 mg/dL (70-105); Lactate Dehydrogenase 179 U/L (94-250); Phosphorous 2.9 mg/dL (2.7-4.5); Triglycerides 95 mg/dl (<150); Uric Acid 3.6 mg/dL (2.5-8.0)
[2019-11-07 06:48] LABS: Blood Urea Nitrogen 7 mg/dl (8-23); Chloride 92 mmol/L (96-108)
[2019-11-07] MEDS: INSULIN LISPRO 1 UNIT/0.01 ML UNIT SQ SCH ×4 (07:38→20:37)
[2019-11-07] MEDS: POTASSIUM CHLORIDE 10 MEQ TABLET PO SCH (07:38)
[2019-11-07] MEDS: LIPASE/PROTEASE/AMYLASE 1 CAP CAPSULE PO SCH ×2 (07:38→17:22)
[2019-11-07] MEDS: MAGNESIUM SULFATE 2 GM/50 ML BAG IV PRN (07:44)
--- NOTE | 2019-11-07 08:10 | Internal Med Progress Note ---
Medical - PN: Subj Patient information: Note initiated : 11/07/19 at 7:57 am Service Date, if different from initiated Date: [] Patient: Shweta Rodriguez a 74 y/o F admitted on 11/05/19 for Dizziness, low BP. Chief Complaint: [] Interval history: Ms. Rodriguez is a 74 year old F Who presents the ED with low blood pressure sent in by her hearing aid dispenser. She was at the urologist today regarding chronic urinary tract infections when she was noted to have low blood pressure. She called her hearing aid dispenser office who told her to come to the ED. She says she has been feeling weaker than usual for the past 2 to 3 days with increased dizziness lightheadedness. Her systolic blood pressures were 70s and 80s. She is on several beta-blockers as well as digoxin atrial fibrillation. Heart rate was 90s. Oxygenating okay on room air. Lactate level is okay. Opponent was negative. Is a chronic leukocytosis. Chest x-ray unremarkable. Blood glucose was low she says her blood glucose runs 50s and 60s and night low 100s during the day. She does not always have a nighttime snack. Patient with nausea. She finished Macrobid on Friday. Recent urine cultures from earlier in the year grew E. coli, ESBL. 1/3 blood pressure is better overnight, still systolics in the 90s to low 100s. Still feels weak and debilitated. Has chronic abdominal pain. No other new complaints. Some nausea earlier which is resolved. Some chills. 1/4 Feeling better today. Did well with physical therapy today. No new complaints overnight events. she does have some diarrhea but states she has chronic diarrhea from chronic pancreatitis 1/5 Per nursing she had some confusion last night. Did not sleep as well. Feeling better today. States overall she is able to ambulate better without as much dizziness and lightheadedness. Mild chronic diarrhea Review of Systems: denies headache/fever/vomiting/chest or abdominal pain/cough/dyspnea. Otherwise see above. - Constitutional Vitals: Vital Signs Temp Pulse Resp BP Pulse Ox 97.6 F 85 16 101/65 98 11/07/19 04:00 11/07/19 02:00 11/07/19 02:00 11/07/19 04:00 11/07/19 05:28 Period Temp Pulse Resp BP Sys/Lopez Pulse Ox Last 24 Hr 97.6 F-98.7 F 85-96 16-20 91-126/58-88 94-100 Intake and Output 11/06/19 11/07/19 11/07/19 21:59 05:59 13:59 Intake Total 770 50 50 Balance 770 50 50 Weight 83.915 kg Intake & Output: Intake & Output 11/06/19 11/07/19 11/07/19 21:59 05:59 13:59 Intake Total 770 50 50 Balance 770 50 50 Weight 83.915 kg Intake: IV 50 50 50 Merrem 1 gm In Sodium Chloride 50 50 50 0.9% 50 ml @ 100 mls/hr IV Q8H [facility] Rx#:[id number] Oral 720 Other: Meal Dinner Percent of Meal Consumed 75% Feeding Ability Independent Urine Appearance Clear Clear Urine Color Dark Yellow Dark Yellow Urine Odor Foul Foul Stool Size Small Small Stool Color Brown Brown Yellow Stool Consistency Loose Soft Liquid # Voids 1 1 Exam: General: Alert, Awake, No acute Distress, obese Eyes/N/T: EOMI, Head/Neck: neck supple, CV: irreg irreg, 3/6 SM Pulm: mild fine basilar rales b/l, no wheezing Abd: soft, +BS x4 Ext: no clubbing/cyanosis, trace b/l LE edema Neuro: Alert, no focal deficits, moves all extremities, Skin: warm/dry Medical - PN: Obj Da - Labs CBC & Chem 7: 11/07/19 05:38 11/07/19 05:37 Labs: Abnormal Lab Results 11/07/19 11/07/19 11/06/19 05:38 05:37 06:08 WBC 12.2 H Hgb 10.2 L Hct 33.9 L MCV 73.7 L MCH 22.2 L MCHC 30.1 L RDW 21.2 H Gran % Lymph % (Auto) 10.9 L Gran # 9.40 H Lymph # (Auto) 1.33 L [place] # (Auto) 1.09 H Seg Neutrophils % Lymphocytes % RBC Morphology Hypochromasia Anisocytosis Microcytosis Ovalocytes ESR PT INR Sodium 128 L 131 L Chloride 92 L 95 L Carbon Dioxide Anion Gap BUN 7 L Creatinine 0.5 L Glucose 106 H Calcium Phosphorus 2.5 L Magnesium GGT Alkaline Phosphatase Lactate Dehydrogenase C-Reactive Protein Total Protein Albumin 2.4 L 2.5 L Globulin Albumin/Globulin Ratio 0.7 L 0.7 L Urine Urobilinogen Ur Leukocyte Esterase Urine RBC Urine WBC Ur Squamous Epith Cells Amorphous Crystals Urine Bacteria 11/06/19 11/05/19 11/05/19 06:08 15:20 05:43 WBC 14.2 H Hgb 10.4 L Hct 33.9 L MCV 72.4 L MCH 22.2 L MCHC 30.7 L RDW 21.3 H Gran % Lymph % (Auto) 14.6 L Gran # 10.87 H Lymph # (Auto) [place] # (Auto) 0.91 H Seg Neutrophils % Lymphocytes % RBC Morphology Hypochromasia Anisocytosis Microcytosis Ovalocytes ESR 37 H PT INR Sodium Chloride Carbon Dioxide Anion Gap BUN Creatinine Glucose Calcium Phosphorus Magnesium GGT Alkaline Phosphatase Lactate Dehydrogenase C-Reactive Protein 10.0 H Total Protein Albumin Globulin Albumin/Globulin Ratio Urine Urobilinogen Ur Leukocyte Esterase Urine RBC Urine WBC Ur Squamous Epith Cells Amorphous Crystals Urine Bacteria 11/05/19 11/05/19 11/04/19 05:43 05:43 23:08 WBC 14.3 H Hgb 9.9 L Hct 32.8 L MCV 72.6 L MCH 21.9 L MCHC 30.2 L RDW 21.1 H Gran % Lymph % (Auto) Gran # Lymph # (Auto) [place] # (Auto) Seg Neutrophils % 80 H Lymphocytes % 10 L RBC Morphology Abnorm A Hypochromasia 1+ A Anisocytosis 2+ A Microcytosis 1+ A Ovalocytes 1+ A ESR PT 18.6 H INR 1.6 H Sodium 128 L Chloride 94 L Carbon Dioxide 20 L Anion Gap BUN Creatinine Glucose 225 H Calcium 8.5 L Phosphorus 2.6 L Magnesium 1.3 L GGT 41 H Alkaline Phosphatase 119 H Lactate Dehydrogenase 349 H C-Reactive Protein Total Protein 5.8 L Albumin 2.2 L Globulin Albumin/Globulin Ratio 0.6 L Urine Urobilinogen Ur Leukocyte Esterase Urine RBC Urine WBC Ur Squamous Epith Cells Amorphous Crystals Urine Bacteria 11/04/19 11/04/19 11/04/19 20:16 16:20 16:20 WBC Hgb Hct MCV MCH MCHC RDW Gran % Lymph % (Auto) Gran # Lymph # (Auto) [place] # (Auto) Seg Neutrophils % 87 H Lymphocytes % 9 L RBC Morphology Hypochromasia 1+ A Anisocytosis 1+ A Microcytosis 1+ A Ovalocytes ESR PT INR Sodium 130 L Chloride 91 L Carbon Dioxide 21 L Anion Gap 18.0 H BUN Creatinine Glucose 53 L Calcium Phosphorus Magnesium GGT Alkaline Phosphatase Lactate Dehydrogenase C-Reactive Protein Total Protein Albumin 2.5 L Globulin 4.0 H Albumin/Globulin Ratio 0.6 L Urine Urobilinogen 2.0 A Ur Leukocyte Esterase 250 A Urine RBC 4 H Urine WBC 28 H Ur Squamous Epith Cells 16 H Amorphous Crystals Few A Urine Bacteria Mod A 11/04/19 16:20 WBC 20.2 H Hgb 11.0 L Hct MCV 72.9 L MCH 22.0 L MCHC 30.1 L RDW 20.9 H Gran % 82.5 H Lymph % (Auto) 10.0 L Gran # 16.68 H Lymph # (Auto) [place] # (Auto) 1.28 H Seg Neutrophils % Lymphocytes % RBC Morphology Hypochromasia Anisocytosis Microcytosis Ovalocytes ESR PT INR Sodium Chloride Carbon Dioxide Anion Gap BUN Creatinine Glucose Calcium Phosphorus Magnesium GGT Alkaline Phosphatase Lactate Dehydrogenase C-Reactive Protein Total Protein Albumin Globulin Albumin/Globulin Ratio Urine Urobilinogen Ur Leukocyte Esterase Urine RBC Urine WBC Ur Squamous Epith Cells Amorphous Crystals Urine Bacteria Meds: Medications Acetaminophen (Tylenol) 650 mg PO Q6HP PRN PRN Reason: PAIN/FEVER > 101 Albuterol/Ipratropium (Duoneb) 3 ml NEB Q4HP PRN PRN Reason: Shortness Of Breath Last Admin: 11/05/19 09:59 Dose: 3 ml Documented by: Amitriptyline HCl (Elavil) 10 mg PO [facility] Last Admin: 11/06/19 21:30 Dose: 10 mg Documented by: [facility]Prote[facility] Last Admin: 11/07/19 07:38 Dose: 1 cap Documented by: Apixaban (Eliquis) 5 mg PO BID [facility] Last Admin: 11/06/19 21:30 Dose: 5 mg Documented by: Carbidopa/Levodopa (Sinemet Cr 25/100) 2 tab PO BID [facility] Last Admin: 11/06/19 21:30 Dose: 2 tab Documented by: Dextrose (Dextrose 50%) 0 ml IV UD PRN PRN Reason: Hypoglycemia Diagnostic Test (Pha) (Accu-Chek) 1 each FS ACHS [facility] Last Admin: 11/07/19 07:37 Dose: 1 each Documented by: Digoxin (Lanoxin) 125 mcg PO MoTuWeThFrSa@1400 [facility] Last Admin: 11/06/19 14:15 Dose: 125 mcg Documented by: Docusate Sodium (Colace) 100 mg PO BID [facility] Last Admin: 11/06/19 21:23 Dose: 100 mg Documented by: Escitalopram Oxalate (Lexapro) 10 mg PO [facility] Last Admin: 11/06/19 21:22 Dose: 10 mg Documented by: Famotidine (Pepcid) 20 mg PO BID [facility] Last Admin: 11/06/19 21:30 Dose: 20 mg Documented by: Fish Oil (Fish Oil) 3,000 mg PO BID [facility] Last Admin: 11/06/19 21:30 Dose: 3,000 mg Documented by: Furosemide (Lasix) 20 mg PO QDAY [facility] Last Admin: 11/06/19 08:22 Dose: 20 mg Documented by: Gabapentin (Neurontin) 300 mg PO TID [facility] Last Admin: 11/06/19 21:22 Dose: 300 mg Documented by: Glucose (Insta-Glucose) 15 gm PO PRN PRN PRN Reason: Hypoglycemia Potassium Chloride 40 meq/ (Dextrose) 520 mls @ 130 mls/hr IV UD PRN PRN Reason: Potassium < 3 Magnesium Sulfate (Magnesium Sulfate) 2 gm in 50 mls @ 50 mls/hr IV UD PRN PRN Reason: Magnesium </= 1.6 Last Admin: 11/07/19 07:44 Dose: 50 mls/hr Documented by: Meropenem 1 gm/ Sodium (Chloride) 50 mls @ 100 mls/hr IV Q8H [facility]; Protocol Last Infusion: 11/07/19 06:15 Dose: Infused Documented by: Insulin Glargine (Lantus) 50 unit SQ [facility] Last Admin: 11/06/19 21:22 Dose: 50 units Documented by: Insulin Human Lispro (Humalog) 0 unit SQ [facility]; Protocol Last Admin: 11/07/19 07:38 Dose: Not Given Documented by: Lactulose (Cephulac) 20 gm PO DAILYP PRN PRN Reason: Constipation Melatonin (Melatonin 3mg Tablet) 3 mg PO HSP PRN PRN Reason: Insomnia Metoprolol Tartrate (Lopressor) 5 mg IV Q2HP PRN PRN Reason: Tachyarrhythmias HR>110 Metoprolol Tartrate (Lopressor) 12.5 mg PO BID [facility] Last Admin: 11/06/19 21:22 Dose: 12.5 mg Documented by: Ondansetron HCl (Zofran) 4 mg IV Q4HP PRN PRN Reason: Nausea And Vomiting Oxycodone HCl (Roxicodone) 5 mg PO Q8HP PRN; Protocol PRN Reason: Per Pain Protocol Polyethylene Glycol (Miralax) 17 gm PO DAILYP PRN PRN Reason: Constipation Potassium Chloride (Kdur) 40 meq PO UD PRN PRN Reason: Potssium is 3-3.5 Potassium Chloride (Kdur) 40 meq PO UD PRN PRN Reason: Potassium < 3 Potassium Chloride (Kdur) 10 meq PO QAMCC [facility] Last Admin: 11/07/19 07:38 Dose: 10 meq Documented by: Pramipexole Dihydrochloride (Mirapex) 0.75 mg PO HS [facility] Last Admin: 11/06/19 21:33 Dose: 0.75 mg Documented by: Senna (Senokot) 2 tab PO DAILYP PRN PRN Reason: Constipation Sodium Chloride (Saline Flush) 10 ml IV Q8 [facility] Last Admin: 11/07/19 07:37 Dose: 10 ml Documented by: Medical - PN: A/P - Time Spent With Patient Total time spent is greater than 50% in coordination of care (as documented) at patient's floor/unit and/or counseling patient: - Narrative A/P Narrative: A: *UTI (recurrent, h/o ESBL e. coli): *Hypotension: responded to IVF's, suspect meds (coreg/toprol/lasix/amitriptyline/narcotics). IMproved -runs low chronically (looking at old notes) -lactate ok -Better after medication adjustment *Gen weak/lightheaded: 2/2 above. Improved *Hyponatremia Isotonic, chronic: improved -FEUrea suggestive of prerenal, including low urine sodium. pt is also noted to be on SSRI -TSH/cortisol ok *Hypomag: improved *Leukocytosis, chronic: Recommended to see hematology last admission but has not seen them -no bandemia, -Improving *Afib: on dig/coreg/toprol at home *DM: low BG at night at home, not eating bedtime snack at home. better her on lower basal insulin *RADHA: *Chronic pancreatitis: Follows with Dr. Patel in [place] -chronic pain on narcotics *Parkinson's: Follows with Dr. Baker *HTN: on BB/BB/lasix *GERD: *Depression: P: -Merrem given h/o ESBL, pending UC -hold coreg, change toprol to lopressor, clarify dose amitriptyline and decrease if necessary -cont dig, prn lopressor -salt tabs, free water restrict -basal (decreased) and SSI, nighttime snack -cont iron supp -f/u with urology for continued w/u outpt -f/u with hematology outpt if continues to have persistent leukocytosis, peripheral smear done last admission nonspecific findings -ppx: home eliquis/home ppi full code Medical - PN: Qual - Stroke Symptom Onset Unknown: No - VTE Deep Vein Thrombosis/Pulmonary Embolism Present on Admission: No
[2019-11-07] MEDS: APIXABAN 5 MG TABLET PO SCH ×2 (08:25→20:27)
[2019-11-07] MEDS: DOCUSATE SODIUM 100 MG CAPSULE PO SCH ×2 (08:25→20:16)
[2019-11-07] MEDS: FAMOTIDINE 20 MG TABLET PO SCH ×2 (08:26→20:29)
[2019-11-07] MEDS: GABAPENTIN 300 MG CAPSULE PO SCH ×3 (08:26→20:30)
[2019-11-07] MEDS: CARBIDOPA/LEVODOPA CR 25/100 TABLET PO SCH ×2 (08:26→20:26)
[2019-11-07] MEDS: FISH OIL 1,000 MG CAPSULE PO SCH ×2 (08:26→20:16)
[2019-11-07] MEDS: METOPROLOL TARTRATE 25 MG TABLET PO SCH ×2 (08:26→20:28)
[2019-11-07] MEDS: FUROSEMIDE 20 MG TABLET PO SCH (08:26)
[2019-11-07] MEDS ORDERED: SODIUM CHLORIDE 1 GM TABLET PO SCH (09:00)
[2019-11-07] MEDS ORDERED: FERROUS SULFATE 325 MG TABLET PO SCH (09:00)
[2019-11-07 09:23] LABS: Thyroid Stimulating Hormone 1.74 uIU/ml (0.27-5.01)
[2019-11-07] MEDS ORDERED: LACTOBACILLUS 1 CAPSULE PO SCH (09:27)
[2019-11-07] MEDS ORDERED: ONDANSETRON 4 MG/2 ML VIAL IV PRN (11:44)
[2019-11-07] MEDS ORDERED: ACETAMINOPHEN 325 MG TABLET PO PRN (11:44)
[2019-11-07] MEDS ORDERED: MELATONIN 3 MG TABLET PO PRN (11:44)
[2019-11-07] MEDS ORDERED: LACTULOSE 20 GM/30 ML ORAL.SOL PO PRN (11:44)
[2019-11-07] MEDS ORDERED: POTASSIUM CHLORIDE 20 MEQ TABLET PO PRN ×2 (11:44)
[2019-11-07] MEDS ORDERED: MAGNESIUM SULFATE 2 GM/50 ML BAG IV PRN (11:44)
[2019-11-07] MEDS ORDERED: METOPROLOL TARTRATE 5 MG/5 ML VIAL IV PRN (11:44)
[2019-11-07] MEDS ORDERED: DEXTROSE 31 GM ORAL.SUSP PO PRN (11:44)
[2019-11-07] MEDS ORDERED: DEXTROSE 50% 50 ML VIAL IV PRN (11:44)
[2019-11-07] MEDS ORDERED: SENNOSIDES 1 TABLET PO PRN (11:44)
[2019-11-07] MEDS ORDERED: POTASSIUM CHLORIDE 40 MEQ in DEXTROSE 5% IN WATER 500 ML IV PRN (11:44)
[2019-11-07] MEDS ORDERED: POLYETHYLENE GLYCOL 3350 17 GM PACKET PO PRN (11:44)
[2019-11-07] MEDS ORDERED: IPRATROPIUM/ALBUTEROL 3 ML AMPUL.NEB NEB PRN (11:44)
[2019-11-07] MEDS: SODIUM CHLORIDE 1 GM TABLET PO SCH ×2 (17:23→20:28)
[2019-11-07] MEDS: oxyCODONE HCL 5 MG TABLET PO PRN (19:56)
[2019-11-07] MEDS: LACTOBACILLUS 1 CAPSULE PO SCH (20:27)
[2019-11-07] MEDS: PRAMIPEXOLE 0.25 MG TABLET PO SCH (20:27)
[2019-11-07] MEDS: FERROUS SULFATE 325 MG TABLET PO SCH (20:28)
[2019-11-07] MEDS: ESCITALOPRAM 10 MG TABLET PO SCH (20:28)
[2019-11-07] MEDS: AMITRIPTYLINE 10 MG TABLET PO SCH (20:28)
[2019-11-07] MEDS ORDERED: INSULIN GLARGINE, HUMAN 1 UNIT/0.01 ML SQ SCH (21:00)
[2019-11-08] MEDS: 0.9 % SODIUM CHLORIDE 10 ML SYRINGE IV SCH ×3 (06:46→21:11)
[2019-11-08] MEDS: MEROPENEM 1 GM in 0.9 % SODIUM CHLORIDE 50 ML IV SCH ×2 (06:46→15:49)
[2019-11-08 07:35] LABS: Basophils # (Auto) 0.05 K/mcL (0.00-0.30); Basophils % (Auto) 0.4 % (0.0-2.0); Eosinophils # (Auto) 0.38 K/mcL (0.00-0.70); Eosinophils % (Auto) 3.2 % (0.0-7.0); Granulocytes % (Auto) 72.8 % (38.0-78.0); Hematocrit 36.8 % (34.1-44.9); Hemoglobin 10.9 g/dL (11.2-15.7); Lymphocytes # (Auto) 1.61 K/mcL (1.50-4.80); Lymphocytes % (Auto) 13.6 % (15.5-49.0); Mean Cell Volume 74.3 fL (80.0-100.0); Mean Corpuscular HGB Conc 29.6 g/dL (31.0-36.0); Mean Platelet Volume 8.7 fL (7.4-10.4); Monocytes # (Auto) 1.18 K/mcL (0.10-0.90); Platelet Count 369 K/mcL (140-440); RBC 4.95 M/mcL (3.59-5.38); Red Cell Distribution Width 21.4 % (11.5-14.5); WBC 11.8 K/mcL (4.50-11.00)
--- NOTE | 2019-11-08 07:48 | Internal Med Progress Note ---
Medical - PN: Subj Patient information: Note initiated : 11/08/19 at 7:42 am Service Date, if different from initiated Date: [] Patient: Shweta Rodriguez a 74 y/o F admitted on 11/05/19 for Dizziness, low BP. Chief Complaint: [] Interval history: Ms. Rodriguez is a 74 year old F Who presents the ED with low blood pressure sent in by her auto care center manager. She was at the urologist today regarding chronic urinary tract infections when she was noted to have low blood pressure. She called her auto care center manager office who told her to come to the ED. She says she has been feeling weaker than usual for the past 2 to 3 days with increased dizziness lightheadedness. Her systolic blood pressures were 70s and 80s. She is on several beta-blockers as well as digoxin atrial fibrillation. Heart rate was 90s. Oxygenating okay on room air. Lactate level is okay. Opponent was negative. Is a chronic leukocytosis. Chest x-ray unremarkable. Blood glucose was low she says her blood glucose runs 50s and 60s and night low 100s during the day. She does not always have a nighttime snack. Patient with nausea. She finished Macrobid on Friday. Recent urine cultures from earlier in the year grew E. coli, ESBL. 1/3 blood pressure is better overnight, still systolics in the 90s to low 100s. Still feels weak and debilitated. Has chronic abdominal pain. No other new complaints. Some nausea earlier which is resolved. Some chills. 1/4 Feeling better today. Did well with physical therapy today. No new complaints overnight events. she does have some diarrhea but states she has chronic diarrhea from chronic pancreatitis 1/5 Per nursing she had some confusion last night. Did not sleep as well. Feeling better today. States overall she is able to ambulate better without as much dizziness and lightheadedness. Mild chronic diarrhea 1/6 Patient has low blood glucose overnight. In clarifying home insulin with the patient she says her home insulin prescription is 70 units but she does not take this. She takes 50. When she came into the hospital we decreased her from what we thought was 7 units nightly to 50. However this answers question of why she still low on blood glucose. He has some nausea from this. Other than this she has no new complaints she says she is able to get up by herself at this point so overall much improved. Review of Systems: denies headache/fever/vomiting/chest or abdominal pain/cough/dyspnea. Otherwise see above. - Constitutional Vitals: Vital Signs Temp Pulse Resp BP Pulse Ox 97.3 F 95 H 14 103/67 94 11/08/19 03:21 11/08/19 03:21 11/08/19 03:21 11/08/19 03:21 11/08/19 03:21 Period Temp Pulse Resp BP Sys/Lopez Pulse Ox Last 24 Hr 97.3 F-98.5 F 82-95 14-20 103-121/67-86 91-100 Intake and Output 11/07/19 11/08/19 11/08/19 21:59 05:59 13:59 Intake Total 540 550 Output Total 200 225 Balance 540 350 -225 Weight 83.96 kg Intake & Output: Intake & Output 11/07/19 11/08/19 11/08/19 21:59 05:59 13:59 Intake Total 540 550 Output Total 200 225 Balance 540 350 -225 Weight 83.96 kg Intake: IV 50 50 Merrem 1 gm In Sodium Chloride 50 50 0.9% 50 ml @ 100 mls/hr IV Q8H [facility] Rx#:[id number] Oral 490 500 Output: Void Amount 200 225 Other: Meal Dinner Percent of Meal Consumed 75% Feeding Ability Independent Urine Appearance Clear Sediment Urine Color Bright Yellow Dark Yellow # Voids 1 Exam: General: Alert, Awake, No acute Distress, obese Eyes/N/T: EOMI, Head/Neck: neck supple, CV: irreg irreg, 3/6 SM Pulm: no rhonchi/ no wheezing Abd: soft, +BS x4 Ext: no clubbing/cyanosis, trace b/l LE edema Neuro: Alert, no focal deficits, moves all extremities, Skin: warm/dry Medical - PN: Obj Da - Labs CBC & Chem 7: 11/08/19 06:40 11/08/19 06:40 Labs: Abnormal Lab Results 11/08/19 11/07/19 11/07/19 06:40 05:38 05:37 WBC 11.8 H 12.2 H Hgb 10.9 L 10.2 L Hct 33.9 L MCV 74.3 L 73.7 L MCH 22.0 L 22.2 L MCHC 29.6 L 30.1 L RDW 21.4 H 21.2 H Lymph % (Auto) 13.6 L 10.9 L Gran # 8.59 H 9.40 H Lymph # (Auto) 1.33 L [place] # (Auto) 1.18 H 1.09 H Seg Neutrophils % Lymphocytes % RBC Morphology Hypochromasia Anisocytosis Microcytosis Ovalocytes ESR Sodium Chloride Carbon Dioxide BUN Creatinine Glucose Calcium Phosphorus Magnesium GGT Alkaline Phosphatase Lactate Dehydrogenase C-Reactive Protein Total Protein Albumin Albumin/Globulin Ratio Cortisol AM Sample 20.0 H 11/07/19 11/06/19 11/06/19 05:37 06:08 06:08 WBC 14.2 H Hgb 10.4 L Hct 33.9 L MCV 72.4 L MCH 22.2 L MCHC 30.7 L RDW 21.3 H Lymph % (Auto) 14.6 L Gran # 10.87 H Lymph # (Auto) [place] # (Auto) 0.91 H Seg Neutrophils % Lymphocytes % RBC Morphology Hypochromasia Anisocytosis Microcytosis Ovalocytes ESR Sodium 128 L 131 L Chloride 92 L 95 L Carbon Dioxide BUN 7 L Creatinine 0.5 L Glucose 106 H Calcium Phosphorus 2.5 L Magnesium GGT Alkaline Phosphatase Lactate Dehydrogenase C-Reactive Protein Total Protein Albumin 2.4 L 2.5 L Albumin/Globulin Ratio 0.7 L 0.7 L Cortisol AM Sample 11/05/19 11/05/19 11/05/19 15:20 05:43 05:43 WBC Hgb Hct MCV MCH MCHC RDW Lymph % (Auto) Gran # Lymph # (Auto) [place] # (Auto) Seg Neutrophils % Lymphocytes % RBC Morphology Hypochromasia Anisocytosis Microcytosis Ovalocytes ESR 37 H Sodium 128 L Chloride 94 L Carbon Dioxide 20 L BUN Creatinine Glucose 225 H Calcium 8.5 L Phosphorus 2.6 L Magnesium 1.3 L GGT 41 H Alkaline Phosphatase 119 H Lactate Dehydrogenase 349 H C-Reactive Protein 10.0 H Total Protein 5.8 L Albumin 2.2 L Albumin/Globulin Ratio 0.6 L Cortisol AM Sample 11/05/19 05:43 WBC 14.3 H Hgb 9.9 L Hct 32.8 L MCV 72.6 L MCH 21.9 L MCHC 30.2 L RDW 21.1 H Lymph % (Auto) Gran # Lymph # (Auto) [place] # (Auto) Seg Neutrophils % 80 H Lymphocytes % 10 L RBC Morphology Abnorm A Hypochromasia 1+ A Anisocytosis 2+ A Microcytosis 1+ A Ovalocytes 1+ A ESR Sodium Chloride Carbon Dioxide BUN Creatinine Glucose Calcium Phosphorus Magnesium GGT Alkaline Phosphatase Lactate Dehydrogenase C-Reactive Protein Total Protein Albumin Albumin/Globulin Ratio Cortisol AM Sample Meds: Medications Acetaminophen (Tylenol) 650 mg PO Q6HP PRN PRN Reason: PAIN/FEVER > 101 Albuterol/Ipratropium (Duoneb) 3 ml NEB Q4HP PRN PRN Reason: Shortness Of Breath Amitriptyline HCl (Elavil) 10 mg PO [facility] Last Admin: 11/07/19 20:28 Dose: 10 mg Documented by: Lipase/Protease/Amylase (Creon) [facility] Last Admin: 11/07/19 17:22 Dose: 1 cap Documented by: Apixaban (Eliquis) 5 mg PO BID [facility] Last Admin: 11/07/19 20:27 Dose: 5 mg Documented by: Carbidopa/Levodopa (Sinemet Cr 25/100) 2 tab PO BID [facility] Last Admin: 11/07/19 20:26 Dose: 2 tab Documented by: Dextrose (Dextrose 50%) 0 ml IV UD PRN PRN Reason: Hypoglycemia Diagnostic Test (Pha) (Accu-Chek) 1 each FS ACHS [facility] Last Admin: 11/08/19 07:25 Dose: 1 each Documented by: Digoxin (Lanoxin) 125 mcg PO MoTuWeThFrSa@1400 [facility] Docusate Sodium (Colace) 100 mg PO BID [facility] Last Admin: 11/07/19 20:16 Dose: Not Given Documented by: Escitalopram Oxalate (Lexapro) 10 mg PO [facility] Last Admin: 11/07/19 20:28 Dose: 10 mg Documented by: Famotidine (Pepcid) 20 mg PO BID [facility] Last Admin: 11/07/19 20:29 Dose: 20 mg Documented by: Ferrous Sulfate (Ferrous Sulfate) 325 mg PO BID [facility] Last Admin: 11/07/19 20:28 Dose: 325 mg Documented by: Fish Oil (Fish Oil) 3,000 mg PO BID [facility] Last Admin: 11/07/19 20:16 Dose: Not Given Documented by: Furosemide (Lasix) 20 mg PO QDAY [facility] Gabapentin (Neurontin) 300 mg PO TID [facility] Last Admin: 11/07/19 20:30 Dose: 300 mg Documented by: Glucose (Insta-Glucose) 15 gm PO PRN PRN PRN Reason: Hypoglycemia Last Admin: 11/08/19 02:51 Dose: 15 gm Documented by: Potassium Chloride 40 meq/ (Dextrose) 520 mls @ 130 mls/hr IV UD PRN PRN Reason: Potassium < 3 Magnesium Sulfate (Magnesium Sulfate) 2 gm in 50 mls @ 50 mls/hr IV UD PRN PRN Reason: Magnesium </= 1.6 Meropenem 1 gm/ Sodium (Chloride) 50 mls @ 100 mls/hr IV Q8H [facility]; Protocol Last Admin: 11/08/19 06:46 Dose: 100 mls/hr Documented by: Insulin Glargine (Lantus) 50 unit SQ HS [facility] Last Admin: 11/07/19 20:47 Dose: 50 units Documented by: Insulin Human Lispro (Humalog) 0 unit SQ ACHS [facility]; Protocol Last Admin: 11/07/19 20:37 Dose: Not Given Documented by: Lactobacillus Rhamnosus (Culturelle) 1 cap PO BID [facility] Last Admin: 11/07/19 20:27 Dose: 1 cap Documented by: Lactulose (Cephulac) 20 gm PO DAILYP PRN PRN Reason: Constipation Melatonin (Melatonin 3mg Tablet) 3 mg PO HSP PRN PRN Reason: Insomnia Metoprolol Tartrate (Lopressor) 5 mg IV Q2HP PRN PRN Reason: Tachyarrhythmias HR>110 Metoprolol Tartrate (Lopressor) 12.5 mg PO BID [facility] Last Admin: 11/07/19 20:28 Dose: 12.5 mg Documented by: Ondansetron HCl (Zofran) 4 mg IV Q4HP PRN PRN Reason: Nausea And Vomiting Oxycodone HCl (Roxicodone) 5 mg PO Q8HP PRN; Protocol PRN Reason: Per Pain Protocol Last Admin: 11/07/19 19:56 Dose: 5 mg Documented by: Polyethylene Glycol (Miralax) 17 gm PO DAILYP PRN PRN Reason: Constipation Potassium Chloride (Kdur) 40 meq PO UD PRN PRN Reason: Potssium is 3-3.5 Potassium Chloride (Kdur) 40 meq PO UD PRN PRN Reason: Potassium < 3 Potassium Chloride (Kdur) 10 meq PO QAMCC [facility] Pramipexole Dihydrochloride (Mirapex) 0.75 mg PO HS [facility] Last Admin: 11/07/19 20:27 Dose: 0.75 mg Documented by: [place] (Senokot) 2 tab PO DAILYP PRN PRN Reason: Constipation Sodium Chloride (Saline Flush) 10 ml IV Q8 [facility] Last Admin: 11/08/19 06:46 Dose: 10 ml Documented by: Sodium Chloride (Sodium Chloride) 1 gm PO TID [facility] Last Admin: 11/07/19 20:28 Dose: 1 gm Documented by: Medical - PN: A/P - Time Spent With Patient Total time spent is greater than 50% in coordination of care (as documented) at patient's floor/unit and/or counseling patient: - Narrative A/P Narrative: A: *UTI (ESBL e. coli): *Hypotension: responded to IVF's, suspect meds (coreg/toprol/lasix/amitrip tyline/narcotics). IMproved -runs low chronically (looking at old notes) -lactate ok -Better after medication adjustment *Gen weak/lightheaded: 2/2 above. Improved *Hyponatremia Isotonic, chronic: improved -FEUrea suggestive of prerenal, including low urine sodium. pt is also noted to be on SSRI -TSH/cortisol ok *Hypomag: improved *Leukocytosis, chronic: Recommended to see hematology last admission but has not seen them -no bandemia, -Improving *Afib: on dig/coreg/toprol at home *DM with Hypoglycemia at night at home: not eating bedtime snack at home. better her on lower basal insulin -low last night. Further clarification of medications is that her Lantus is listed at 70 units on her prescription but she only takes 50 at night. *RADHA: *Chronic pancreatitis: Follows with Dr. Patel in [place] -chronic pain on narcotics *Parkinson's: Follows with Dr. Baker *HTN: on BB/BB/lasix *GERD: *Depression: P: -Merrem given h/o ESBL, will transition merrem to macrobid given ESBL -hold coreg, change toprol to lopressor, -cont dig, prn lopressor -salt tabs, free water restrict -basal (decrease to 30) and SSI, nighttime snack -cont iron supp -f/u with urology for continued w/u outpt -f/u with hematology outpt if continues to have persistent leukocytosis, peripheral smear done last admission nonspecific findings -ppx: home eliquis/home ppi full code Medical - PN: Qual - Stroke Symptom Onset Unknown: No - VTE Deep Vein Thrombosis/Pulmonary Embolism Present on Admission: No
[2019-11-08 07:59] LABS: ALT/SGPT < 5 U/l (0-40); AST/SGOT 10 U/l (0-37); Albumin 2.3 gm/dL (3.2-5.2); Albumin/Globulin Ratio 0.6 (1.0-2.3); Alkaline Phosphatase 83 U/L (39-117); Bilirubin,Direct < 0.2 mg/dL (0.0-0.3); Bilirubin,Total 0.4 mg/dL (0.0-1.0); Blood Urea Nitrogen 6 mg/dl (8-23); Calcium 8.9 mg/dl (8.6-10.4); Carbon Dioxide 24 mmol/L (22-30); Chloride 92 mmol/L (96-108); Globulin 3.7 gm/dL (2.2-3.7); Glomerular Filtration Rate 90; Glucose 47 mg/dL (70-105); Lactate Dehydrogenase 207 U/L (94-250); Phosphorous 3.9 mg/dL (2.7-4.5); Triglycerides 92 mg/dl (<150); Uric Acid 3.7 mg/dL (2.5-8.0)
[2019-11-08 08:04] LABS: C-Reactive Protein 5.2 mg/dl (0.0-0.8)
[2019-11-08] MEDS ORDERED: FUROSEMIDE 40 MG/4 ML VIAL IV ONE (08:32)
[2019-11-08] MEDS ORDERED: ALBUMIN HUMAN 12.5 GM/50 ML BAG IV ONE (08:32)
[2019-11-08] MEDS: FISH OIL 1,000 MG CAPSULE PO SCH ×3 (09:00→21:10)
[2019-11-08] MEDS: INSULIN LISPRO 1 UNIT/0.01 ML UNIT SQ SCH ×4 (09:40→21:30)
[2019-11-08] MEDS ORDERED: HYDROmorphone 2 MG/ML VIAL IV ONE (10:06)
[2019-11-08] MEDS ORDERED: HYDROmorphone 2 MG/ML VIAL ONE (10:11)
[2019-11-08] MEDS: GABAPENTIN 300 MG CAPSULE PO SCH ×3 (10:17→21:10)
[2019-11-08] MEDS: APIXABAN 5 MG TABLET PO SCH ×2 (10:18→21:10)
[2019-11-08] MEDS: DOCUSATE SODIUM 100 MG CAPSULE PO SCH ×2 (10:18→21:11)
[2019-11-08] MEDS: CARBIDOPA/LEVODOPA CR 25/100 TABLET PO SCH ×2 (10:19→21:08)
[2019-11-08] MEDS: METOPROLOL TARTRATE 25 MG TABLET PO SCH ×2 (10:19→21:10)
[2019-11-08] MEDS: LACTOBACILLUS 1 CAPSULE PO SCH ×2 (10:19→21:08)
[2019-11-08] MEDS: FERROUS SULFATE 325 MG TABLET PO SCH ×2 (10:20→21:09)
[2019-11-08] MEDS: FAMOTIDINE 20 MG TABLET PO SCH ×2 (10:20→21:49)
[2019-11-08] MEDS: SODIUM CHLORIDE 1 GM TABLET PO SCH ×3 (10:20→21:09)
[2019-11-08] MEDS: oxyCODONE HCL 5 MG TABLET PO PRN (10:21)
[2019-11-08] MEDS: FUROSEMIDE 20 MG TABLET PO SCH (10:21)
[2019-11-08] MEDS: POTASSIUM CHLORIDE 10 MEQ TABLET PO SCH (10:21)
[2019-11-08] MEDS: LIPASE/PROTEASE/AMYLASE 1 CAP CAPSULE PO SCH ×2 (10:22→17:10)
[2019-11-08] MEDS ORDERED: DIGOXIN 125 MCG TABLET PO SCH (14:00)
[2019-11-08] MEDS ORDERED: INSULIN GLARGINE, HUMAN 1 UNIT/0.01 ML SQ SCH (21:00)
[2019-11-08] MEDS: AMITRIPTYLINE 10 MG TABLET PO SCH (21:08)
[2019-11-08] MEDS: NITROFURANTOIN SR 100 MG CAPSULE PO SCH (21:09)
[2019-11-08] MEDS: ESCITALOPRAM 10 MG TABLET PO SCH (21:10)
[2019-11-08] MEDS: PRAMIPEXOLE 0.25 MG TABLET PO SCH (21:10)
[2019-11-09] MEDS: oxyCODONE HCL 5 MG TABLET PO PRN ×2 (00:56→09:33)
--- NOTE | 2019-11-09 07:33 | Internal Med Progress Note ---
Medical - PN: Subj Patient information: Note initiated : 11/09/19 at 7:31 am Service Date, if different from initiated Date: [] Patient: Shweta Rodriguez a 74 y/o F admitted on 11/05/19 for Dizziness, low BP. Chief Complaint: [] Interval history: Ms. Rodriguez is a 74 year old F Who presents the ED with low blood pressure sent in by her real estate agent. She was at the urologist today regarding chronic urinary tract infections when she was noted to have low blood pressure. She called her real estate agent office who told her to come to the ED. She says she has been feeling weaker than usual for the past 2 to 3 days with increased dizziness lightheadedness. Her systolic blood pressures were 70s and 80s. She is on several beta-blockers as well as digoxin atrial fibrillation. Heart rate was 90s. Oxygenating okay on room air. Lactate level is okay. Opponent was negative. Is a chronic leukocytosis. Chest x-ray unremarkable. Blood glucose was low she says her blood glucose runs 50s and 60s and night low 100s during the day. She does not always have a nighttime snack. Patient with nausea. She finished Macrobid on Friday. Recent urine cultures from earlier in the year grew E. coli, ESBL. 1/3 blood pressure is better overnight, still systolics in the 90s to low 100s. Still feels weak and debilitated. Has chronic abdominal pain. No other new complaints. Some nausea earlier which is resolved. Some chills. 1/4 Feeling better today. Did well with physical therapy today. No new complaints overnight events. she does have some diarrhea but states she has chronic diarrhea from chronic pancreatitis 1/5 Per nursing she had some confusion last night. Did not sleep as well. Feeling better today. States overall she is able to ambulate better without as much dizziness and lightheadedness. Mild chronic diarrhea 1/6 Patient has low blood glucose overnight. In clarifying home insulin with the patient she says her home insulin prescription is 70 units but she does not take this. She takes 50. When she came into the hospital we decreased her from what we thought was 7 units nightly to 50. However this answers question of why she still low on blood glucose. He has some nausea from this. Other than this she has no new complaints she says she is able to get up by herself at this point so overall much improved. / Slept good last night. Overall feeling significantly improved and working better with physical therapy. She is getting some of her chronic abdominal pain from pancreatitis. And so she did not eat as much yesterday evening night probably resulting in the lower blood sugar this morning. White blood cell count is normalized, deemed stable Review of Systems: denies headache/fever/vomiting/chest pain/cough/dyspnea. Otherwise see above. - Constitutional Vitals: Vital Signs Temp Pulse Resp BP Pulse Ox 98.1 F 106 H 12 112/72 94 11/09/19 03:09 11/09/19 03:09 11/09/19 03:09 11/09/19 03:09 11/09/19 03:09 Period Temp Pulse Resp BP Sys/Lopez Pulse Ox Last 24 Hr 97.5 F-98.6 F 82-106 - 97-119/65-84 91-98 Intake and Output 11/08/19 11/09/19 11/09/19 21:59 05:59 13:59 Intake Total 590 730 Output Total 650 502 Balance -60 228 Weight 83.96 kg Intake & Output: Intake & Output 11/08/19 11/09/19 11/09/19 21:59 05:59 13:59 Intake Total 590 730 Output Total 650 502 Balance -60 228 Weight 83.96 kg Intake: IV 50 Merrem 1 gm In Sodium Chloride 50 0.9% 50 ml @ 100 mls/hr IV Q8H [facility] Rx#:[id number] Oral 540 730 Output: Void Amount 650 500 # of times incontinent of urine 2 Other: Meal 2 mulugeta crackers & peanut butter Percent of Meal Consumed 100% Urine Appearance Clear Clear Urine Color Bright Yellow Dark Yellow Urine Odor Normal Normal Exam: General: Alert, Awake, No acute Distress, obese Eyes/N/T: EOMI, Head/Neck: neck supple, CV: irreg irreg, 3/6 SM Pulm: no rhonchi/ no wheezing Abd: soft, +BS x4 Ext: no clubbing/cyanosis, trace b/l LE edema Neuro: Alert, no focal deficits, moves all extremities, Skin: warm/dry Medical - PN: Obj Da - Labs CBC & Chem 7: 11/09/19 06:34 11/09/19 06:34 Labs: Abnormal Lab Results 11/08/19 11/08/19 11/08/19 06:40 06:40 06:40 WBC 11.8 H Hgb 10.9 L Hct MCV 74.3 L MCH 22.0 L MCHC 29.6 L RDW 21.4 H Lymph % (Auto) 13.6 L Gran # 8.59 H Lymph # (Auto) [place] # (Auto) 1.18 H Sodium 128 L Chloride 92 L BUN 6 L Creatinine Glucose 47 L Phosphorus C-Reactive Protein 5.2 H Albumin 2.3 L Albumin/Globulin Ratio 0.6 L Cortisol AM Sample 11/07/19 11/07/19 11/07/19 05:38 05:37 05:37 WBC 12.2 H Hgb 10.2 L Hct 33.9 L MCV 73.7 L MCH 22.2 L MCHC 30.1 L RDW 21.2 H Lymph % (Auto) 10.9 L Gran # 9.40 H Lymph # (Auto) 1.33 L [place] # (Auto) 1.09 H Sodium 128 L Chloride 92 L BUN 7 L Creatinine Glucose 106 H Phosphorus C-Reactive Protein Albumin 2.4 L Albumin/Globulin Ratio 0.7 L Cortisol AM Sample 20.0 H 11/06/19 06:08 WBC Hgb Hct MCV MCH MCHC RDW Lymph % (Auto) Gran # Lymph # (Auto) [place] # (Auto) Sodium 131 L Chloride 95 L BUN Creatinine 0.5 L Glucose Phosphorus 2.5 L C-Reactive Protein Albumin 2.5 L Albumin/Globulin Ratio 0.7 L Cortisol AM Sample Meds: Medications Acetaminophen (Tylenol) 650 mg PO Q6HP PRN PRN Reason: PAIN/FEVER > 101 Last Admin: 11/08/19 10:22 Dose: 650 mg Documented by: Albuterol/Ipratropium (Duoneb) 3 ml NEB Q4HP PRN PRN Reason: Shortness Of Breath Amitriptyline HCl (Elavil) 10 mg PO [facility] Last Admin: 11/08/19 21:08 Dose: 10 mg Documented by: [facility]/Prote[facility]Creon) [facility] Last Admin: 11/08/19 17:10 Dose: 1 cap Documented by: Apixaban (Eliquis) 5 mg PO BID [facility] Last Admin: 11/08/19 21:10 Dose: 5 mg Documented by: Carbidopa/Levodopa (Sinemet Cr 25/100) 2 tab PO BID [facility] Last Admin: 11/08/19 21:08 Dose: 2 tab Documented by: Dextrose (Dextrose 50%) 0 ml IV UD PRN PRN Reason: Hypoglycemia Diagnostic Test (Pha) (Accu-Chek) 1 each FS [facility] Last Admin: 11/09/19 07:19 Dose: 1 each Documented by: Digoxin (Lanoxin) 125 mcg PO MoTuWeThFrSa@1400 [facility] Last Admin: 11/08/19 15:51 Dose: 125 mcg Documented by: Docusate Sodium (Colace) 100 mg PO BID [facility] Last Admin: 11/08/19 21:11 Dose: Not Given Documented by: Escitalopram Oxalate (Lexapro) 10 mg PO [facility] Last Admin: 11/08/19 21:10 Dose: 10 mg Documented by: Famotidine (Pepcid) 20 mg PO BID [facility] Last Admin: 11/08/19 21:49 Dose: 20 mg Documented by: Ferrous Sulfate (Ferrous Sulfate) 325 mg PO BID [facility] Last Admin: 11/08/19 21:09 Dose: 325 mg Documented by: Fish Oil (Fish Oil) 3,000 mg PO BID [facility] Last Admin: 11/08/19 21:10 Dose: Not Given Documented by: Furosemide (Lasix) 20 mg PO QDAY [facility] Last Admin: 11/08/19 10:21 Dose: 20 mg Documented by: Gabapentin (Neurontin) 300 mg PO TID [facility] Last Admin: 11/08/19 21:10 Dose: 300 mg Documented by: Glucose (Insta-Glucose) 15 gm PO PRN PRN PRN Reason: Hypoglycemia Last Admin: 11/08/19 02:51 Dose: 15 gm Documented by: Potassium Chloride 40 meq/ (Dextrose) 520 mls @ 130 mls/hr IV UD PRN PRN Reason: Potassium < 3 Magnesium Sulfate (Magnesium Sulfate) 2 gm in 50 mls @ 50 mls/hr IV UD PRN PRN Reason: Magnesium </= 1.6 Insulin Glargine (Lantus) 30 unit SQ [facility] Last Admin: 11/08/19 21:49 Dose: 30 units Documented by: Insulin Human Lispro (Humalog) 0 unit SQ [facility]; Protocol Last Admin: 11/08/19 21:30 Dose: Not Given Documented by: Lactobacillus Rhamnosus (Culturelle) 1 cap PO BID [facility] Last Admin: 11/08/19 21:08 Dose: 1 cap Documented by: Lactulose (Cephulac) 20 gm PO DAILYP PRN PRN Reason: Constipation Melatonin (Melatonin 3mg Tablet) 3 mg PO HSP PRN PRN Reason: Insomnia Metoprolol Tartrate (Lopressor) 5 mg IV Q2HP PRN PRN Reason: Tachyarrhythmias HR>110 Metoprolol Tartrate (Lopressor) 12.5 mg PO BID [facility] Last Admin: 11/08/19 21:10 Dose: 12.5 mg Documented by: Nitrofurantoin Macrocrystals (Macrobid) 100 mg PO BID [facility] Last Admin: 11/08/19 21:09 Dose: 100 mg Documented by: Ondansetron HCl (Zofran) 4 mg IV Q4HP PRN PRN Reason: Nausea And Vomiting Oxycodone HCl (Roxicodone) 5 mg PO Q8HP PRN; Protocol PRN Reason: Per Pain Protocol Last Admin: 11/09/19 00:56 Dose: 5 mg Documented by: Polyethylene Glycol (Miralax) 17 gm PO DAILYP PRN PRN Reason: Constipation Potassium Chloride (Kdur) 40 meq PO UD PRN PRN Reason: Potssium is 3-3.5 Potassium Chloride (Kdur) 40 meq PO UD PRN PRN Reason: Potassium < 3 Potassium Chloride (Kdur) 10 meq PO QAMCC [facility] Last Admin: 11/08/19 10:21 Dose: 10 meq Documented by: Pramipexole Dihydrochloride (Mirapex) 0.75 mg PO HS [facility] Last Admin: 11/08/19 21:10 Dose: 0.75 mg Documented by: Senna (Senokot) 2 tab PO DAILYP PRN PRN Reason: Constipation Sodium Chloride (Saline Flush) 10 ml IV Q8 [facility] Last Admin: 11/08/19 21:11 Dose: 10 ml Documented by: Sodium Chloride (Sodium Chloride) 1 gm PO TID [facility] Last Admin: 11/08/19 21:09 Dose: 1 gm Documented by: Medical - PN: A/P - Time Spent With Patient Total time spent is greater than 50% in coordination of care (as documented) at patient's floor/unit and/or counseling patient: - Narrative A/P Narrative: A: *UTI (ESBL e. coli): *Hypotension: responded to IVF's, suspect meds (coreg/toprol/lasix/amitriptyline/narcotics). IMproved -runs low chronically (looking at old notes) -lactate ok; TSH/cortisol ok -Better after medication adjustment *Gen weak/lightheaded: 2/2 above. Improved *Hyponatremia Isotonic, mild chronic: stable -FEUrea suggestive of prerenal, including low urine sodium. pt is also noted to be on SSRI -TSH/cortisol ok *Hypomag: improved *Leukocytosis, chronic: Recommended to see hematology last admission but has not seen them -no bandemia, -Improved *Afib: on dig/coreg/toprol at home *DM with Hypoglycemia at night at home: not eating bedtime snack at home. better on lower basal insulin -Further clarification of medications is that her Lantus is listed at 70 units on her prescription but she only takes 50 at night. *RADHA: *Chronic pancreatitis: Follows with Dr. Patel in [place] -chronic pain on narcotics *Parkinson's: Follows with Dr. Baker *HTN: on BB/BB/lasix *GERD: *Depression: P: -Merrem given ESBL, transitioned to macrobid -d/c'd coreg, change toprol to lopressor, cont dig -salt tabs, free water restrict -basal (decrease to 28) and SSI, nighttime snack -cont iron supp -f/u with urology for continued w/u outpt -ppx: home eliquis/home ppi full code Medical - PN: Qual - Stroke Symptom Onset Unknown: No - VTE Deep Vein Thrombosis/Pulmonary Embolism Present on Admission: No
[2019-11-09] MEDS: INSULIN LISPRO 1 UNIT/0.01 ML UNIT SQ SCH ×2 (07:48→11:55)
[2019-11-09 07:59] LABS: Basophils # (Auto) 0.05 K/mcL (0.00-0.30); Basophils % (Auto) 0.5 % (0.0-2.0); Eosinophils # (Auto) 0.46 K/mcL (0.00-0.70); Eosinophils % (Auto) 4.5 % (0.0-7.0); Granulocytes % (Auto) 68.4 % (38.0-78.0); Hematocrit 32.5 % (34.1-44.9); Hemoglobin 9.9 g/dL (11.2-15.7); Lymphocytes % (Auto) 16.5 % (15.5-49.0); Mean Cell Volume 72.1 fL (80.0-100.0); Mean Corpuscular HGB Conc 30.5 g/dL (31.0-36.0); Mean Platelet Volume 8.5 fL (7.4-10.4); Monocytes # (Auto) 1.04 K/mcL (0.10-0.90); Monocytes % (Auto) 10.1 % (1.0-12.0); Platelet Count 352 K/mcL (140-440); RBC 4.51 M/mcL (3.59-5.38); Red Cell Distribution Width 20.7 % (11.5-14.5); WBC 10.3 K/mcL (4.50-11.00)
[2019-11-09 08:39] LABS: Bilirubin,Direct < 0.2 mg/dL (0.0-0.3)
[2019-11-09 08:40] LABS: ALT/SGPT < 5 U/l (0-40); AST/SGOT 9 U/l (0-37); Albumin 2.6 gm/dL (3.2-5.2); Albumin/Globulin Ratio 0.9 (1.0-2.3); Alkaline Phosphatase 82 U/L (39-117); Bilirubin,Total 0.3 mg/dL (0.0-1.0); Blood Urea Nitrogen 8 mg/dl (8-23); Calcium 8.5 mg/dl (8.6-10.4); Carbon Dioxide 25 mmol/L (22-30); Chloride 94 mmol/L (96-108); Glomerular Filtration Rate 103; Glucose 77 mg/dL (70-105); Lactate Dehydrogenase 181 U/L (94-250); Phosphorous 3.2 mg/dL (2.7-4.5); Triglycerides 115 mg/dl (<150)
[2019-11-09] MEDS: DOCUSATE SODIUM 100 MG CAPSULE PO SCH (09:20)
[2019-11-09] MEDS: FISH OIL 1,000 MG CAPSULE PO SCH (09:21)
[2019-11-09] MEDS: 0.9 % SODIUM CHLORIDE 10 ML SYRINGE IV SCH ×2 (09:31→10:08)
[2019-11-09] MEDS: FERROUS SULFATE 325 MG TABLET PO SCH (09:36)
[2019-11-09] MEDS: CARBIDOPA/LEVODOPA CR 25/100 TABLET PO SCH (09:36)
[2019-11-09] MEDS: APIXABAN 5 MG TABLET PO SCH (09:36)
[2019-11-09] MEDS: FAMOTIDINE 20 MG TABLET PO SCH (09:36)
[2019-11-09] MEDS: GABAPENTIN 300 MG CAPSULE PO SCH (09:37)
[2019-11-09] MEDS: FUROSEMIDE 20 MG TABLET PO SCH (09:37)
[2019-11-09] MEDS: METOPROLOL TARTRATE 25 MG TABLET PO SCH (09:38)
[2019-11-09] MEDS: NITROFURANTOIN SR 100 MG CAPSULE PO SCH (09:39)
[2019-11-09] MEDS: LACTOBACILLUS 1 CAPSULE PO SCH (09:40)
[2019-11-09] MEDS: SODIUM CHLORIDE 1 GM TABLET PO SCH (09:40)
[2019-11-09] MEDS: POTASSIUM CHLORIDE 10 MEQ TABLET PO SCH (09:40)
[2019-11-09] MEDS: LIPASE/PROTEASE/AMYLASE 1 CAP CAPSULE PO SCH (09:41)
[2019-11-09] MEDS ORDERED: HYDROmorphone 2 MG/ML VIAL IV ONE (09:51)
== END 2019-11-09 12:05 | DRG 690 ==
LOC: ED 15:35 → ICU 11-05 00:29 → MEDSUR 11-07 09:59
PROVIDERS: ADMIT Internal Medicine; ATTEND Internal Medicine

== ENCOUNTER 2021-07-25 09:31 | Inpatient (IN) ==
[2021-07-25] MEDS ORDERED: 0.9 % SODIUM CHLORIDE 1,000 ML IV ONE (10:11)
[2021-07-25] MEDS ORDERED: DEXAMETHASONE 4 MG TABLET PO ONE (10:11)
[2021-07-25] MEDS ORDERED: IPRATROPIUM/ALBUTEROL 3 ML AMPUL.NEB NEB PRN ×3 (10:13→19:50)
--- NOTE | 2021-07-25 10:19 | Emergency Department Note ---
HPI General Chief complaint: Shortness of Breath/Dyspnea Stated complaint: SOB, Chest Pain Time Seen by Provider: 07/25/21 09:40 Source: patient Mode of arrival: wheelchair Limitations: no limitations History of Present Illness HPI Narrative: Patient is a 75-year-old lady who arrives emergency department by private vehicle complaining of shortness of breath. The patient says she has been having shortness of breath for the past 2 or 3 days. This is gradual in onset and progressively worsening. She has had associated cough without sputum production. She denies any associated fever or chills. She does not have any known sick contacts. She has not received a COVID-19 vaccine. Her symptoms started getting worse this morning so she decided come in for further evaluation. She does have associated chest pain that she describes as a central chest tightness. Related Data Home Medications Medication Instructions Recorded Confirmed cholecalciferol (vitamin D3) 50 4,000 unit PO QDAY tab 04/25/15 07/25/21 mcg (2,000 unit) tablet pramipexole 0.25 mg tablet 0.5 mg PO TID tab 01/26/18 07/25/21 carbidopa ER 50 mg-levodopa 200 mg 1 tab PO BID 06/11/18 07/25/21 tablet,extended release escitalopram oxalate 1 tab PO HS 08/21/19 07/25/21 gabapentin 1 tab PO HS 08/21/19 07/25/21 apixaban 5 mg PO BID 11/04/19 07/25/21 ferrous sulfate 325 mg PO BID 11/04/19 07/25/21 pantoprazole 40 mg PO AC 11/04/19 07/25/21 insulin glargine [Lantus U-100 80 unit SUBCUT BID 07/25/21 07/25/21 Insulin] metoprolol succinate 50 mg PO QDAY 07/25/21 07/25/21 oxycodone-acetaminophen 1 tab PO Q4H PRN 07/25/21 07/25/21 spironolactone 25 mg PO QDAY 07/25/21 07/25/21 Previous Rx's Medication Instructions Recorded fenofibrate 160 mg tablet 160 mg PO QDAY #90 tab 06/12/18 insulin aspart U-100 2 - 20 unit SUBCUT AC #1 vial 11/09/19 Allergies Allergy/AdvReac Type Severity Reaction Status Date / Time hydrocodone AdvReac Intermediate Shaking Verified 07/25/21 16:18 Gulglrv-App-Esn Reductase AdvReac Intermediate Muscle Verified 07/25/21 16:18 Inhibitor Stiffness lisinopril AdvReac Mild cough Verified 07/25/21 16:18 Sulfa (Sulfonamide AdvReac Mild Rash Verified 07/25/21 16:18 Antibiotics) Review of Systems ROS ROS Narrative: Narrative: All systems ED: reviewed and negative except as stated. Constitutional: Denies fever and chills Gastrointestinal: Denies abdominal pain, nausea and diarrhea PFSH Narrative Patient History Narrative: Narrative: Medical/Surgical/Family History All Active Problems (Updated 07/25/21 @ 18:02 by Donnie Morales DO) UTI (urinary tract infection) (Acute) Flank pain (Acute) Liver lesion (Acute) Leukocytosis (Acute) Acute on chronic pancreatitis (Acute) Hypotension (Acute) COVID-19 (Acute) Acute hypoxemic respiratory failure (Acute) Obesity (BMI 35.0-39.9 without comorbidity) (Chronic) Stricture of pancreatic duct (Chronic) Chronic anticoagulation (Chronic) Atrial fibrillation (Chronic) Uncontrolled diabetes mellitus (Chronic) Hypertension, essential, benign (Chronic) Hyperlipidemia (Chronic) KEAGAN (obstructive sleep apnea) (Chronic) Anemia (Chronic 12/13/14) Parkinson's disease (Chronic) Pancreatitis (Chronic 11/17/13) Abdominal pain (Chronic) Gastroesophageal reflux (Chronic 11/17/13) Depression (Chronic) Diarrhea (Chronic) Postsurgical nonabsorption (Chronic) Menopausal and postmenopausal disorder (Chronic) Insomnia (Chronic 12/13/14) Right shoulder pain (Chronic) Dizziness and giddiness (Chronic) Chronic insomnia (Chronic) Vitamin deficiency (Chronic) Medical History Abdominal pain Abdominal pain of multiple sites 04/07/2015-Trinh, much better, Vasculitis panel neg, esr crp neg. Acute on chronic pancreatitis Anemia (12/13/14) low iron stores, ferritin 32, advised replacement Ankle fracture, left Atrial fibrillation Chronic anticoagulation warfarin for A-fib Chronic insomnia Depression No ssri due to coumadin interactions. Diarrhea Dizziness and giddiness DVT (deep venous thrombosis) (11/17/13) PROPHALYXIS Gastroesophageal reflux (11/17/13) Hypercalcemia Hyperlipidemia unable to tolerate statin. Hypertension, essential, benign Hypomagnesemia Insomnia (12/13/14) Leukocytosis 04/07/15 Trinh Menopausal and postmenopausal disorder NOS Obesity (BMI 35.0-39.9 without comorbidity) KEAGAN (obstructive sleep apnea) Pancreatitis (11/17/13) acute on chronic duct stones, increase creon for now. Parkinson's disease Postsurgical nonabsorption MALABSORPTION POST LAP-TAI Right knee pain Right shoulder pain Stricture of pancreatic duct s/p stent; removed prior to 03-06-19 Uncontrolled diabetes mellitus Vitamin deficiency Weight gain (12/13/14) Surgical History History of adenoidectomy History of appendectomy History of cholecystectomy History of colonoscopy (04/11/15) colitis involving only the cecum History of hysterectomy History of left knee replacement History of open reduction and internal fixation (ORIF) procedure L ANKLE History of tonsillectomy Pancreatic duct stricture Status post arthroscopic surgery of right knee Family History Unknown Malignant neoplasm of breast Mother , 79 Chronic obstructive pulmonary disease Father of unknown cause bio unknown Social History Smoking Status: Never smoker Alcohol Intake Frequency: does not drink Substance Use: does not use Exam Narrative Narrative: I reviewed the vital signs. Gen -patient is awake and alert and in no acute distress. The patient is well groomed. HEENT -head is atraumatic. There is no conjunctival pallor or scleral icterus. Mucous membranes are dry. CV -S1-S2 tachycardic and irregular. Peripheral pulses are palpable. There is no JVD. Resp -breathing is nonlabored at rest on supplemental oxygen via nasal cannula. The patient does have slight conversational dyspnea with increased work of breathing visible after long periods of conversation. Lungs have mild rhonchi bilaterally.. There is no cyanosis. GI - Abdomen is soft and nontender to palpation. There is no guarding or rebound tenderness. Derm -skin is warm and dry. There is no visible rash. MSK -present extremities are atraumatic. Psych -patient has appropriate affect. The patient does not appear internally stimulated. Neuro -patient answers questions appropriately with fluent speech. Patient moves all present extremities equally. General Limitations: no limitations Course Vital Signs Vital signs: Vital Signs Temperature 96.9 F L 07/25/21 09:33 Respiratory Rate 20 07/25/21 09:33 Pulse Oximetry (%) 80 L 07/25/21 09:33 Temperature 97.9 F 07/25/21 15:54 Pulse Rate 89 07/25/21 17:31 Respiratory Rate 23 H 07/25/21 17:31 Blood Pressure 118/96 07/25/21 17:11 Pulse Oximetry (%) 93 07/25/21 17:31 MDM MDM Narrative Medical decision making narrative: Patient presents with cough and shortness of breath. Chest x-ray reveals patchy bilateral infiltrates consistent with COVID- 19 in the patient's rapid antigen test for COVID-19 is positive. I discussed the test results with the patient and she is agreeable with plan for admission. She arrived in atrial fibrillation with a rapid rate. She did not take her home medications and once this information was available to me I ordered metoprolol to treat her rate. She was also given IV fluids as clinically she appears somewhat dehydrated. I discussed the patient's history examination diagnostic findings with Dr. Kaur. He accepts admission. Critical care time I provided 32 minutes of critical care time. This was in addition to any separately billable procedures. The patient was given supplemental oxygen to treat her hypoxemic respiratory failure. She was given IV fluids and p.o metoprolol to treat her atrial fibrillation with rapid ventricular response. She was given dexamethasone to treat her COVID-19 pneumonia and resulting hypoxemia.. The patient was closely monitored for response to treatment and stability of vital signs throughout their emergency department stay. Lab Data Lab results reviewed: Yes I reviewed the patient's lab results. Result diagrams: 07/25/21 10:35 07/25/21 12:31 Labs: Lab Results 07/25/21 07/25/21 07/25/21 Range/Units 10:35 10:35 10:35 WBC 6.5 (4.5-11.0) K/mcL RBC 5.61 H (3.59-5.38) M/mcL Hgb 15.7 (11.2-15.7) g/dL Hct 47.8 H (34.1-44.9) % MCV 85.2 (80.0-100.0) fL MCH 28.0 (26.0-34.0) pg MCHC 32.8 (31.0-36.0) g/dL RDW 13.0 (11.5-14.5) % Plt Count 161 (140-440) K/mcL MPV 11.2 H (7.4-10.4) fL Neut % (Auto) 85.3 H (38.0-78.0) % Lymph % (Auto) 8.7 L (15.5-49.0) % [place] % (Auto) 5.1 (1.0-12.0) % Eos % (Auto) 0.6 (0.0-7.0) % Baso % (Auto) 0.3 (0.0-2.0) % Lymph # (Auto) 0.57 L (1.50-4.80) K/mcL [place] # (Auto) 0.33 (0.10-0.90) K/mcL Eos # (Auto) 0.04 (0.00-0.70) K/mcL Baso # (Auto) 0.02 (0.00-0.30) K/mcL Absolute Neutrophils 5.56 (1.80-8.00) K/mcL VBG Lactic Acid 1.9 (0.5-2.0) mmol/L Sodium (133-145) mmol/L Potassium (3.3-5.1) mmol/L Chloride (96-108) mmol/L Carbon Dioxide (22-30) mmol/L Anion Gap (8.0-16.0) BUN (8-23) mg/dL Creatinine (0.6-1.1) mg/dL GFR Calculation Glucose (70-105) mg/dL Calcium (8.6-10.4) mg/dL Ferritin (30.0-400.0) ng/mL Total Bilirubin (0.1-1.0) mg/dL AST (<32) U/L ALT (<40) U/L Alkaline Phosphatase (39-117) U/L Troponin T < 0.01 (<0.03) ng/mL C-Reactive Protein (0.03-0.80) mg/dL Total Protein (5.9-8.4) gm/dL Albumin (3.2-5.2) gm/dL Globulin (2.2-3.7) gm/dL Albumin/Globulin Ratio (1.0-2.3) Procalcitonin (<0.10) ng/mL 07/25/21 07/25/21 07/25/21 Range/Units 12:31 12:31 12:35 WBC (4.5-11.0) K/mcL RBC (3.59-5.38) M/mcL Hgb (11.2-15.7) g/dL Hct (34.1-44.9) % MCV (80.0-100.0) fL MCH (26.0-34.0) pg MCHC (31.0-36.0) g/dL RDW (11.5-14.5) % Plt Count (140-440) K/mcL MPV (7.4-10.4) fL Neut % (Auto) (38.0-78.0) % Lymph % (Auto) (15.5-49.0) % [place] % (Auto) (1.0-12.0) % Eos % (Auto) (0.0-7.0) % Baso % (Auto) (0.0-2.0) % Lymph # (Auto) (1.50-4.80) K/mcL [place] # (Auto) (0.10-0.90) K/mcL Eos # (Auto) (0.00-0.70) K/mcL Baso # (Auto) (0.00-0.30) K/mcL Absolute Neutrophils (1.80-8.00) K/mcL VBG Lactic Acid (0.5-2.0) mmol/L Sodium 131 L (133-145) mmol/L Potassium 4.6 (3.3-5.1) mmol/L Chloride 88 L (96-108) mmol/L Carbon Dioxide 20 L (22-30) mmol/L Anion Gap 23.0 H (8.0-16.0) BUN 20 (8-23) mg/dL Creatinine 0.9 (0.6-1.1) mg/dL GFR Calculation 62 Glucose 280 H (70-105) mg/dL Calcium 9.0 (8.6-10.4) mg/dL Ferritin 1970.0 H (30.0-400.0) ng/mL Total Bilirubin 0.6 (0.1-1.0) mg/dL AST 45 H (<32) U/L ALT 28 (<40) U/L Alkaline Phosphatase 71 (39-117) U/L Troponin T (<0.03) ng/mL C-Reactive Protein 20.90 H (0.03-0.80) mg/dL Total Protein 7.4 (5.9-8.4) gm/dL Albumin 3.4 (3.2-5.2) gm/dL Globulin 4.0 H (2.2-3.7) gm/dL Albumin/Globulin Ratio 0.9 L (1.0-2.3) Procalcitonin 0.11 H (<0.10) ng/mL ED POC Tests ED POC Tests: AUNG - SARS Antigen Positive EKG Data EKG #1: EKG attestation: Yes I reviewed and interpreted this EKG. EKG results narrative: EKG performed at 9:34 AM: Atrial fibrillation, rate 159. Low voltage QRS complexes. T waves are diffusely flattened and inverted in V6. Normal QRS and QTc duration. No old EKG immediately available for comparison. EKG was interpreted by me. No ST segment deviation. Discharge Plan Patient/Caregiver Discharge Instructions Pt seen by [employer] USHER/PA only: No Clinical Impression: COVID-19, Acute hypoxemic respiratory failure Patient Disposition: Xfer As Inpt ([facility]) Condition: Fair Discharge Date/Time: 07/25/21 15:08
[2021-07-25 11:32] LABS: Basophils # (Auto) 0.02 K/mcL (0.00-0.30); Basophils % (Auto) 0.3 % (0.0-2.0); Eosinophils # (Auto) 0.04 K/mcL (0.00-0.70); Eosinophils % (Auto) 0.6 % (0.0-7.0); Hematocrit 47.8 % (34.1-44.9); Hemoglobin 15.7 g/dL (11.2-15.7); Lymphocytes # (Auto) 0.57 K/mcL (1.50-4.80); Lymphocytes % (Auto) 8.7 % (15.5-49.0); Mean Cell Volume 85.2 fL (80.0-100.0); Mean Corpuscular HGB Conc 32.8 g/dL (31.0-36.0); Mean Platelet Volume 11.2 fL (7.4-10.4); Monocytes # (Auto) 0.33 K/mcL (0.10-0.90); Monocytes % (Auto) 5.1 % (1.0-12.0); Neutrophils % (Auto) 85.3 % (38.0-78.0); Platelet Count 161 K/mcL (140-440); RBC 5.61 M/mcL (3.59-5.38); WBC 6.5 K/mcL (4.5-11.0)
--- NOTE | 2021-07-25 11:47 | XRay Report ---
CLINICAL INFORMATION: COVID-19 COMPARISON: 06/13/2021 FINDINGS: Mild cardiomegaly is unchanged. Mediastinum and pulmonary vessels are normal. Large patchy infiltrates have developed throughout both lungs. No effusions. IMPRESSION: Large patchy infiltrates developing throughout both lungs Interpreted and Authenticated by: Remberto Henriquez 07/25/21
[2021-07-25] MEDS ORDERED: ONDANSETRON 4 MG/2 ML VIAL IV ONE (11:59)
[2021-07-25 13:14] LABS: ALT/SGPT 28 U/L (<40); AST/SGOT 45 U/L (<32); Albumin 3.4 gm/dL (3.2-5.2); Albumin/Globulin Ratio 0.9 (1.0-2.3); Alkaline Phosphatase 71 U/L (39-117); Bilirubin,Total 0.6 mg/dL (0.1-1.0); Blood Urea Nitrogen 20 mg/dL (8-23); Carbon Dioxide 20 mmol/L (22-30); Chloride 88 mmol/L (96-108); Glomerular Filtration Rate 62; Glucose 280 mg/dL (70-105)
[2021-07-25] MEDS ORDERED: REMDESIVIR 200 MG in 0.9 % SODIUM CHLORIDE 250 ML IV ONE (13:41)
[2021-07-25] MEDS ORDERED: DIGOXIN 125 MCG TABLET PO SCH (14:00)
[2021-07-25] MEDS ORDERED: METOPROLOL SUCCINATE 50 MG TAB.XL.24H PO ONE (14:00)
--- NOTE | 2021-07-25 14:03 | Internal Med History&Physical ---
HPI History of Present Illness Patient information: Note initiated : 07/25/21 at 1:57 pm Service Date, if different from initiated Date: [] Patient: Shweta Rodriguez a 75 y/o F admitted on for SOB, Chest Pain. Chief Complaint: [] History of present illness: Ms. Rodriguez is a 75 year old F Resents to the ED with shortness of breath and cough. This started on Friday. She says she does get occasionally short of breath because of her A. fib but discontinued on. She developed mild cough that was productive. And her symptoms continued to the point today she just could not move around because of shortness of breath she was. In the ED she was satting 86% on room air. She is now on 4 L and comfortable. Chest x-ray with bilateral infiltrates. Covid test was positive. She has not been vaccinated because her primary care doctor says she has a poor immune system and he was worried about her response to the vaccine. Mild headache. Review of Systems: denies fever/chills/nausea/vomiting/abdominal pain/diarrhea. Otherwise see above. PFSH PFSH All Active Problems UTI (urinary tract infection) (Acute) Flank pain (Acute) Liver lesion (Acute) Leukocytosis (Acute) Acute on chronic pancreatitis (Acute) Hypotension (Acute) Obesity (BMI 35.0-39.9 without comorbidity) (Chronic) Stricture of pancreatic duct (Chronic) Chronic anticoagulation (Chronic) Atrial fibrillation (Chronic) Uncontrolled diabetes mellitus (Chronic) Hypertension, essential, benign (Chronic) Hyperlipidemia (Chronic) KEAGAN (obstructive sleep apnea) (Chronic) Anemia (Chronic 12/13/14) Parkinson's disease (Chronic) Pancreatitis (Chronic 11/17/13) Abdominal pain (Chronic) Gastroesophageal reflux (Chronic 11/17/13) Depression (Chronic) Diarrhea (Chronic) Postsurgical nonabsorption (Chronic) Menopausal and postmenopausal disorder (Chronic) Insomnia (Chronic 12/13/14) Right shoulder pain (Chronic) Dizziness and giddiness (Chronic) Chronic insomnia (Chronic) Vitamin deficiency (Chronic) Medical History Abdominal pain Abdominal pain of multiple sites 04/07/2015-Trinh, much better, Vasculitis panel neg, esr crp neg. Acute on chronic pancreatitis Anemia (12/13/14) low iron stores, ferritin 32, advised replacement Ankle fracture, left Atrial fibrillation Chronic anticoagulation warfarin for A-fib Chronic insomnia Depression No ssri due to coumadin interactions. Diarrhea Dizziness and giddiness DVT (deep venous thrombosis) (11/17/13) PROPHALYXIS Gastroesophageal reflux (11/17/13) Hypercalcemia Hyperlipidemia unable to tolerate statin. Hypertension, essential, benign Hypomagnesemia Insomnia (12/13/14) Leukocytosis 04/07/15 Trinh Menopausal and postmenopausal disorder NOS Obesity (BMI 35.0-39.9 without comorbidity) KEAGAN (obstructive sleep apnea) Pancreatitis (11/17/13) acute on chronic duct stones, increase creon for now. Parkinson's disease Postsurgical nonabsorption MALABSORPTION POST LAP-TAI Right knee pain Right shoulder pain Stricture of pancreatic duct s/p stent; removed prior to 03-06-19 Uncontrolled diabetes mellitus Vitamin deficiency Weight gain (12/13/14) Surgical History History of adenoidectomy History of appendectomy History of cholecystectomy History of colonoscopy (04/11/15) colitis involving only the cecum History of hysterectomy History of left knee replacement History of open reduction and internal fixation (ORIF) procedure L ANKLE History of tonsillectomy Pancreatic duct stricture Status post arthroscopic surgery of right knee Family History Unknown Malignant neoplasm of breast Mother , 79 Chronic obstructive pulmonary disease Father of unknown cause bio unknown Social History (Updated 06/11/18 @ 12:33 by Prakash Hernandez MD) marital status: education level: college 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 other: 3 children/11 grandchildren/8 bio/3 extented alcohol intake frequency: does not drink substance use type: does not use MEDS/ALLERGIES Home Medications and Allergies Home Medications Medication Instructions Recorded Confirmed Type cholecalciferol (vitamin D3) 50 4,000 unit PO QDAY tab 04/25/15 07/25/21 History mcg (2,000 unit) tablet digoxin 125 mcg (0.125 mg) tablet 125 mcg PO MOTUWETHFRSA tab 04/25/15 07/25/21 History furosemide 20 mg tablet 20 mg PO QDAY 04/28/17 07/25/21 History potassium chloride 10 mEq 10 meq PO QDAY 04/28/17 07/25/21 History capsule,extended release pramipexole 0.25 mg tablet 0.75 mg PO QHS tab 01/26/18 07/25/21 History carbidopa ER 50 mg-levodopa 200 mg 1 tab PO BID 06/11/18 07/25/21 History tablet,extended release fenofibrate 160 mg tablet 160 mg PO QDAY #90 tab 06/12/18 07/25/21 Rx [place] 3 Fish Oil Softgel 3,000 mg PO BID 08/21/19 07/25/21 History amitriptyline 1 tab PO HS 08/21/19 07/25/21 History escitalopram oxalate 1 tab PO HS 08/21/19 07/25/21 History gabapentin 1 tab PO TID 08/21/19 07/25/21 History vzmwdf-jutokpmn-rhykjtx 1 cap PO BID 08/21/19 07/25/21 History oxycodone 1 tab PO Q6HP PRN 08/21/19 07/25/21 History apixaban 5 mg PO BID 11/04/19 07/25/21 History ferrous sulfate 325 mg PO BID 11/04/19 07/25/21 History pantoprazole 40 mg PO AC 11/04/19 07/25/21 History metoprolol tartrate 12.5 mg PO BID #30 tab 11/06/19 07/25/21 Rx nitrofurantoin monohyd/m-cryst 100 mg PO BID #3 cap 11/08/19 07/25/21 Rx insulin aspart U-100 2 - 20 unit SUBCUT AC #1 vial 11/09/19 07/25/21 Rx insulin glargine 28 unit SQ HS #1 unit 11/09/19 07/25/21 Rx oxycodone 5 mg PO Q6HP PRN #20 tab 11/09/19 07/25/21 Rx Allergies Allergy/AdvReac Type Severity Reaction Status Date / Time [id number] Reductase AdvReac Severe Myalgias Verified 11/04/19 15:35 Inhibitor lisinopril AdvReac Mild cough Verified 11/08/19 16:18 Sulfa (Sulfonamide AdvReac Mild Rash Verified 11/04/19 15:35 Antibiotics) EXAM Constitutional Vitals: Temp Pulse Resp BP Pulse Ox 96.9 F L 132 H 26 H 134/93 89 L 07/25/21 09:33 07/25/21 13:18 07/25/21 13:18 07/25/21 13:18 07/25/21 13:18 Exam: General: Alert, Awake, No acute Distress, obese Eyes/N/T: EOMI, PERRL, MMM Head/Neck: neck supple, CV: irreg irreg, 3/6SM Pulm: Rhonchi/rales b/l, no wheezing Abd: soft, nontender, +BS x4 Ext: no clubbing/cyanosis, trace b/l LE edema Neuro: Alert, no focal deficits, moves all extremities, CN 2-12 grossly intact, symmetrical strength b/l upper/lower, sensations intact b/l upper/lower Skin: warm/dry DATA Data Completed and Pending Labs: Labs from last 24 hours 07/25/21 07/25/21 07/25/21 12:31 10:35 10:35 WBC RBC Hgb Hct MCV MCH MCHC RDW Plt Count MPV Neut % (Auto) Lymph % (Auto) [place] % (Auto) Eos % (Auto) Baso % (Auto) Lymph # (Auto) [place] # (Auto) Eos # (Auto) Baso # (Auto) Absolute Neutrophils VBG Lactic Acid Sodium 131 L Potassium 4.6 Chloride 88 L Carbon Dioxide 20 L Anion Gap 23.0 H BUN 20 Creatinine 0.9 GFR Calculation 62 Glucose 280 H Calcium 9.0 Total Bilirubin 0.6 AST 45 H ALT 28 Alkaline Phosphatase 71 Troponin T < 0.01 Pending Total Protein 7.4 Albumin 3.4 Globulin 4.0 H Albumin/Globulin Ratio 0.9 L 07/25/21 07/25/21 10:35 10:35 WBC 6.5 RBC 5.61 H Hgb 15.7 Hct 47.8 H MCV 85.2 MCH 28.0 MCHC 32.8 RDW 13.0 Plt Count 161 MPV 11.2 H Neut % (Auto) 85.3 H Lymph % (Auto) 8.7 L [place] % (Auto) 5.1 Eos % (Auto) 0.6 Baso % (Auto) 0.3 Lymph # (Auto) 0.57 L [place] # (Auto) 0.33 Eos # (Auto) 0.04 Baso # (Auto) 0.02 Absolute Neutrophils 5.56 VBG Lactic Acid 1.9 Sodium Potassium Chloride Carbon Dioxide Anion Gap BUN Creatinine GFR Calculation Glucose Calcium Total Bilirubin AST ALT Alkaline Phosphatase Troponin T Total Protein Albumin Globulin Albumin/Globulin Ratio A/P Narrative A/P Narrative: A: *covid PNA: *Acute hypoxic Resp Failure: -requiring 4L NC *Afib w/rvr: on dig/coreg/toprol at home *Hyponatremia, mild chronic: stable *DM w/neuropathy: *RADHA: *Chronic pancreatitis: Follows with Dr. Patel in [place] -chronic pain on narcotics *Parkinson's: Follows with Dr. Baker *HTN: on BB/BB/lasix *GERD: *Depression: * P: -Rem/Dexa, high risk for worsening>we do have some actemra available -prone/mobilization/oob to chair -prn nebs -check ABG -cont Dig/BB, prn IV BB -cont sinemet -basal and SSI -cont home lasix -pt/ot -ppx: apixaban / home ppi DNR Time Spent With Patient Time: Total time spent is greater than 50% in coordination of care (as documented) at patient's floor/unit and/or counseling patient:
[2021-07-25] MEDS ORDERED: GABAPENTIN 300 MG CAPSULE PO SCH ×2 (15:00→21:00)
[2021-07-25] MEDS ORDERED: POLYETHYLENE GLYCOL 3350 17 GM PACKET PO PRN ×2 (15:20→19:50)
[2021-07-25] MEDS ORDERED: DEXTROSE 50% 50 ML VIAL IV PRN ×2 (15:20→19:50)
[2021-07-25] MEDS ORDERED: POTASSIUM CHLORIDE 20 MEQ TABLET PO PRN ×4 (15:20→19:50)
[2021-07-25] MEDS ORDERED: ACETAMINOPHEN 325 MG TABLET PO PRN ×2 (15:20→19:50)
[2021-07-25] MEDS ORDERED: POTASSIUM CHLORIDE 40 MEQ in DEXTROSE 5% IN WATER 500 ML IV PRN (15:20)
[2021-07-25] MEDS ORDERED: ONDANSETRON 4 MG/2 ML VIAL IV PRN ×2 (15:20→19:50)
[2021-07-25] MEDS ORDERED: METOPROLOL TARTRATE 5 MG/5 ML VIAL IV PRN ×2 (15:20→19:50)
[2021-07-25] MEDS ORDERED: DEXTROSE 31 GM ORAL.SUSP PO PRN ×2 (15:20→19:50)
[2021-07-25] MEDS ORDERED: SENNOSIDES 1 TABLET PO PRN ×2 (15:20→19:50)
[2021-07-25] MEDS ORDERED: MAGNESIUM SULFATE 2 GM/50 ML BAG IV PRN ×2 (15:20→19:50)
[2021-07-25] MEDS ORDERED: oxyCODONE HCL 5 MG TABLET PO PRN (15:20)
[2021-07-25 15:27] LABS: C-Reactive Protein 20.9 mg/dL (0.03-0.80)
[2021-07-25] MEDS ORDERED: METOPROLOL TARTRATE 5 MG/5 ML VIAL IV ONE ×2 (15:32→16:37)
[2021-07-25] MEDS ORDERED: LORazepam 2 MG/ML VIAL IV PRN ×2 (16:43→19:50)
[2021-07-25] MEDS ORDERED: TOCILIZUMAB 600 MG in 0.9 % SODIUM CHLORIDE 70 ML IV ONE (17:00)
[2021-07-25] MEDS ORDERED: PANTOPRAZOLE 40 MG TABLET PO SCH (17:00)
[2021-07-25] MEDS ORDERED: INSULIN LISPRO 1 UNIT/0.01 ML UNIT SQ SCH (17:00)
[2021-07-25] MEDS ORDERED: DILTIAZEM 125 MG in DEXTROSE 5% IN WATER 100 ML IV SCH (18:00)
--- NOTE | 2021-07-25 18:21 | EKG ---
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
[2021-07-25] MEDS ORDERED: oxyCODONE/APAP 5/325MG TABLET PO PRN (18:38)
[2021-07-25] MEDS ORDERED: 0.9 % SODIUM CHLORIDE 250 ML IV SCH (18:45)
[2021-07-25] MEDS: APIXABAN 5 MG TABLET PO SCH (20:54)
[2021-07-25] MEDS: ESCITALOPRAM 10 MG TABLET PO SCH (20:54)
[2021-07-25] MEDS: 0.9 % SODIUM CHLORIDE 250 ML IV SCH (20:54)
[2021-07-25] MEDS: DOCUSATE SODIUM 100 MG CAPSULE PO SCH (20:54)
[2021-07-25] MEDS: CARBIDOPA/LEVODOPA CR 25/100 TABLET PO SCH (20:54)
[2021-07-25] MEDS: PRAMIPEXOLE 0.25 MG TABLET PO SCH (20:57)
[2021-07-25] MEDS: GABAPENTIN 300 MG CAPSULE PO SCH (20:57)
[2021-07-25] MEDS ORDERED: METOPROLOL TARTRATE 25 MG TABLET PO SCH (21:00)
[2021-07-25] MEDS ORDERED: AMITRIPTYLINE 10 MG TABLET PO SCH (21:00)
[2021-07-25] MEDS ORDERED: DOCUSATE SODIUM 100 MG CAPSULE PO SCH (21:00)
[2021-07-25] MEDS ORDERED: CARBIDOPA/LEVODOPA CR 25/100 TABLET PO SCH (21:00)
[2021-07-25] MEDS ORDERED: INSULIN GLARGINE, HUMAN 1 UNIT/0.01 ML SQ SCH ×2 (21:00)
[2021-07-25] MEDS ORDERED: ESCITALOPRAM 10 MG TABLET PO SCH (21:00)
[2021-07-25] MEDS ORDERED: FERROUS SULFATE 325 MG TABLET PO SCH (21:00)
[2021-07-25] MEDS ORDERED: APIXABAN 5 MG TABLET PO SCH (21:00)
[2021-07-25] MEDS ORDERED: LIPASE PROTEASE AMYLASE PO SCH (21:00)
[2021-07-25] MEDS ORDERED: PRAMIPEXOLE 0.25 MG TABLET PO SCH ×2 (21:00)
[2021-07-25] MEDS: INSULIN LISPRO 1 UNIT/0.01 ML UNIT SQ SCH (21:18)
[2021-07-25] MEDS: 0.9 % SODIUM CHLORIDE 10 ML SYRINGE IV SCH (21:19)
[2021-07-25] MEDS: oxyCODONE/APAP 5/325MG TABLET PO PRN (21:49)
[2021-07-25] MEDS ORDERED: 0.9 % SODIUM CHLORIDE 10 ML SYRINGE IV SCH (22:00)
[2021-07-26] MEDS: 0.9 % SODIUM CHLORIDE 10 ML SYRINGE IV SCH ×3 (05:58→22:23)
[2021-07-26 07:17] LABS: ALT/SGPT 12 U/L (<40); AST/SGOT 33 U/L (<32); Albumin 2.7 gm/dL (3.2-5.2); Albumin/Globulin Ratio 0.7 (1.0-2.3); Alkaline Phosphatase 66 U/L (39-117); Bilirubin,Direct < 0.2 mg/dL (0-0.3); Bilirubin,Total 0.4 mg/dL (0.1-1.0); Blood Urea Nitrogen 17 mg/dL (8-23); Calcium 8.7 mg/dL (8.6-10.4); Carbon Dioxide 23 mmol/L (22-30); Chloride 96 mmol/L (96-108); Globulin 3.7 gm/dL (2.2-3.7); Glomerular Filtration Rate 84; Glucose 283 mg/dL (70-105); Lactate Dehydrogenase 466 U/L (135-225); Phosphorous 3.2 mg/dL (2.5-4.5); Triglycerides 133 mg/dL (<150); Uric Acid 4.1 mg/dL (2.5-8.0)
[2021-07-26] MEDS: PANTOPRAZOLE 40 MG TABLET PO SCH ×3 (07:22→17:39)
[2021-07-26 07:31] LABS: Basophils # (Auto) 0 K/mcL (0.00-0.30); Basophils % (Auto) 0 % (0.0-2.0); Eosinophils # (Auto) 0 K/mcL (0.00-0.70); Eosinophils % (Auto) 0 % (0.0-7.0); Hemoglobin 14.4 g/dL (11.2-15.7); Lymphocytes # (Auto) 0.48 K/mcL (1.50-4.80); Lymphocytes % (Auto) 15.3 % (15.5-49.0); Mean Cell Volume 87.9 fL (80.0-100.0); Mean Corpuscular HGB Conc 30.6 g/dL (31.0-36.0); Mean Platelet Volume 10.5 fL (7.4-10.4); Monocytes # (Auto) 0.19 K/mcL (0.10-0.90); Monocytes % (Auto) 6.1 % (1.0-12.0); Neutrophils % (Auto) 78.6 % (38.0-78.0); Platelet Count 176 K/mcL (140-440); RBC 5.35 M/mcL (3.59-5.38); Red Cell Distribution Width 13.2 % (11.5-14.5); WBC 3.1 K/mcL (4.5-11.0)
[2021-07-26] MEDS ORDERED: MAGNESIUM SULFATE 2 GM/50 ML BAG IV ONE (07:44)
--- NOTE | 2021-07-26 07:45 | Internal Med Progress Note ---
SUBJECTIVE Subjective Patient information: Note initiated : 07/26/21 at 7:40 am Service Date, if different from initiated Date: [] Patient: Shweta Rodriguez 75 y/o F admitted on 07/25/21 for SOB, Chest Pain. Chief Complaint: [] Interval history: History of present illness: Ms. Rodriguez is a 75 year old F Resents to the ED with shortness of breath and cough. This started on Friday. She says she does get occasionally short of breath because of her A. fib but discontinued on. She developed mild cough that was productive. And her symptoms continued to the point today she just could not move around because of shortness of breath she was. In the ED she was satting 86% on room air. She is now on 4 L and comfortable. Chest x-ray with bilateral infiltrates. Covid test was positive. She has not been vaccinated because her primary care doctor says she has a poor immune system and he was worried about her response to the vaccine. Mild headache. 07/26 Patient is on Vapotherm flow 60 with FiO2 of 100%. She appears comfortable at the moment and says she is breathing a lot better. Occasional cough. Review of Systems: denies headache/fever/chills/nausea/vomiting/chest or abdominal pain/diarrhea. Otherwise see above. Constitutional Vitals: Vital Signs Temp Pulse Resp BP Pulse Ox 97.5 F 80 14 110/80 95 07/26/21 04:13 07/26/21 04:13 07/26/21 04:13 07/26/21 04:01 07/26/21 04:13 Period Temp Pulse Resp BP Sys/Lopez Pulse Ox Last 24 Hr 96.9 F-99.7 F 61-168 14-38 79-223/62-197 66-97 Intake and Output 07/25/21 07/26/21 07/26/21 21:59 05:59 13:59 Intake Total 1354 182 Output Total 31 800 Balance 1323 -618 Weight 92.221 kg Intake & Output: Intake & Output 07/25/21 07/26/21 07/26/21 21:59 05:59 13:59 Intake Total 1354 182 Output Total 31 800 Balance 1323 -618 Weight 92.221 kg Intake: IV 1354 182 Sodium Chloride 0.9% 1,000 ml @ 1000 Wide Open IV BOLUS ONE Rx#: [id number] Sodium Chloride 0.9% 250 ml @ 119 20 mls/hr IV .[id number] PENDING SALE TO [facility] Rx#: [id number] Cardizem 125 mg In Dextrose 5% 4 63 in Water 100 ml @ 5 MG/HR 5 mls /hr IV Q24H PENDING SALE TO [facility] Rx#:[id number] Veklury 200 mg In Sodium 250 Chloride 0.9% 250 ml @ 500 mls/ hr IV ONCE ONE Rx#:[id number] Actemra 600 mg In Sodium 100 Chloride 0.9% 70 ml @ 100 mls/ hr IV ONCE ONE Rx#:[id number] Output: Urine Catheter Amount 800 Void Amount 30 # of times incontinent of urine 1 Other: Urine Appearance Clear Uretheral ([place]) Clear Sediment Mucous Threads Urine Color Dark Yellow Bright Yellow Uretheral ([place]) Pale Urine Odor Strong Exam: General: Alert, Awake, No acute Distress, obese Eyes/N/T: EOMI, Head/Neck: neck supple, CV: irreg irreg, 3/6SM Pulm: fine rales b/l, some rhonchi, no wheezing Abd: soft, nontender, +BS x4 Ext: no clubbing/cyanosis, trace b/l LE edema Neuro: Alert, no focal deficits, moves all extremities, Skin: warm/dry OBJ DATA Labs CBC & Chem 7: 07/26/21 05:33 07/26/21 05:33 Labs: Abnormal Lab Results 07/26/21 07/26/21 07/25/21 05:33 05:33 12:35 WBC 3.1 L RBC Hct 47.0 H MCHC 30.6 L MPV 10.5 H Neut % (Auto) 78.6 H Lymph % (Auto) 15.3 L Lymph # (Auto) 0.48 L Sodium Chloride Carbon Dioxide Anion Gap Glucose 283 H Magnesium 1.4 L Ferritin AST 33 H Lactate Dehydrogenase 466 H C-Reactive Protein Albumin 2.7 L Globulin Albumin/Globulin Ratio 0.7 L Procalcitonin 0.11 H 07/25/21 07/25/21 07/25/21 12:31 12:31 10:35 WBC RBC 5.61 H Hct 47.8 H MCHC MPV 11.2 H Neut % (Auto) 85.3 H Lymph % (Auto) 8.7 L Lymph # (Auto) 0.57 L Sodium 131 L Chloride 88 L Carbon Dioxide 20 L Anion Gap 23.0 H Glucose 280 H Magnesium Ferritin 1970.0 H AST 45 H Lactate Dehydrogenase C-Reactive Protein 20.90 H Albumin Globulin 4.0 H Albumin/Globulin Ratio 0.9 L Procalcitonin Meds: Medications Acetaminophen (Acetaminophen 325 Mg Tablet) 650 mg PO Q6HP PRN PRN Reason: PAIN/FEVER > 101 Albuterol/Ipratropium (Ipratropium/Albuterol 3 Ml Ampul.Neb) 3 ml NEB Q4HP PRN PRN Reason: Shortness Of Breath Apixaban (Apixaban 5 Mg Tablet) 5 mg PO BID PENDING SALE TO [facility] Last Admin: 07/25/21 20:54 Dose: Not Given Documented by: Carbidopa/Levodopa (Carbidopa/Levodopa Cr 25/100 Tablet) 2 tab PO BID [facility]END[facility] Last Admin: 07/25/21 20:54 Dose: Not Given Documented by: Dexamethasone (Dexamethasone 4 Mg Tablet) 6 mg PO DAILY [facility]END[facility] Dextrose (Dextrose 50% 50 Ml Vial) 0 ml IV UD PRN PRN Reason: Hypoglycemia Diagnostic Test (Pha) (Accu-Chek 1 Each Strip) 1 each FS ACHS PENDING SALE TO [facility] Last Admin: 07/25/21 21:18 Dose: 1 each Documented by: Docusate Sodium (Docusate Sodium 100 Mg Capsule) 100 mg PO BID [facility]END[facility] Last Admin: 07/25/21 20:54 Dose: Not Given Documented by: Escitalopram Oxalate (Escitalopram 10 Mg Tablet) 10 mg PO [facility] Last Admin: 07/25/21 20:54 Dose: Not Given Documented by: Fenofibrate (Fenofibrate 43 Mg Capsule) 129 mg PO DAILY [facility] Ferrous Sulfate (Ferrous Sulfate 325 Mg Tablet) 325 mg PO BID@1200,1730 PENDING SALE TO [facility] Gabapentin (Gabapentin 300 Mg Capsule) 300 mg PO [facility] Last Admin: 07/25/21 20:57 Dose: 300 mg Documented by: Glucose (Dextrose 31 Gm Oral.Susp) 15 gm PO PRN PRN PRN Reason: Hypoglycemia Diltiazem HCl 125 mg/ Dextrose 125 mls @ 5 mls/hr IV Q24H AMANDA; Protocol Sodium Chloride (Sodium Chloride 0.9%) 250 mls @ 20 mls/hr IV .[id number] PENDING SALE TO [facility] Last Admin: 07/25/21 20:54 Dose: Not Given Documented by: Magnesium Sulfate (Magnesium Sulfate) 2 gm in 50 mls @ 50 mls/hr IV UD PRN PRN Reason: Magnesium </= 1.6 REMDESIVIR 100 mg/ Sodium (Chloride) 250 mls @ 500 mls/hr IV Q24H PENDING SALE TO [facility] Stop: 07/29/21 14:29 Insulin Glargine (Insulin Glargine, Human 1 Unit/0.01 Ml) 28 unit SQ HS [facility]END[facility] Last Admin: 07/25/21 21:18 Dose: 28 unit Documented by: Insulin Human Lispro (Insulin Lispro 1 Unit/0.01 Ml Unit) 0 unit SQ ACHS PENDING SALE [facility]; Protocol Last Admin: 07/25/21 21:18 Dose: 8 unit Documented by: Lorazepam (Lorazepam 2 Mg/Ml Vial) 0.5 mg IV Q6HP PRN PRN Reason: ANXIETY/SEDATION Last Admin: 07/26/21 03:15 Dose: 0.5 mg Documented by: Metoprolol Succinate (Metoprolol Succinate 50 Mg Tab.Xl.24h) 50 mg PO DAILY [facility] Metoprolol Tartrate (Metoprolol Tartrate 5 Mg/5 Ml Vial) 5 mg IV Q2HP PRN PRN Reason: Tachyarrhythmias HR>110 Ondansetron HCl (Ondansetron 4 Mg/2 Ml Vial) 4 mg IV Q4HP PRN PRN Reason: Nausea And Vomiting Oxycodone/Acetaminophen (Oxycodone/Apap 5/325mg Tablet) 1 tab PO Q4HP PRN; Prot ocol PRN Reason: Per Pain Protocol Last Admin: 07/25/21 21:49 Dose: 1 tab Documented by: Pantoprazole Sodium (Pantoprazole 40 Mg Tablet) 40 mg PO AC [facility]END[facility] Last Admin: 07/26/21 07:22 Dose: 40 mg Documented by: Polyethylene Glycol (Polyethylene Glycol 3350 17 Gm Packet) 17 gm PO DAILYP PRN PRN Reason: Constipation Potassium Chloride (Potassium Chloride 20 Meq Tablet) 40 meq PO UD PRN PRN Reason: Potssium is 3-3.5 Potassium Chloride (Potassium Chloride 20 Meq Tablet) 40 meq PO UD PRN PRN Reason: Potassium < 3 Pramipexole Dihydrochloride (Pramipexole 0.25 Mg Tablet) 0.5 mg PO TID [facility] Last Admin: 07/25/21 20:57 Dose: 0.5 mg Documented by: Senna (Sennosides 1 Tablet) 2 tab PO DAILYP PRN PRN Reason: Constipation Sodium Chloride (0.9 % Sodium Chloride 10 Ml Syringe) 10 ml IV Q8 PENDING SALE [facility] Last Admin: 07/26/21 05:58 Dose: 10 ml Documented by: Spironolactone (Spironolactone 25 Mg Tablet) 25 mg PO DAILY PENDING SALE [facility] Vitamin D (Vitamin D3 1,000 Unit Tablet) 4,000 unit PO DAILY AMANDA A/P Narrative A/P Narrative: A: *covid PNA w/ARDS: *Acute hypoxic Resp Failure: -requiring vapotherm 60lpm & 100% *Afib w/rvr: on toprol/eliquis at home *Hyponatremia, mild chronic: improved *DM w/neuropathy: *RADHA: *Chronic pancreatitis: Follows with Dr. Patel in [place] -chronic pain on narcotics *Parkinson's: on Sinemet, follows with Dr. Baker *HTN: on BB/aldactone *GERD: *Depression: *KEAGAN P: -guarded prognosis -bipap if needed -Rem/Dexa, s/p Tocilizumab -prone/mobilization/oob to chair -prn nebs -dilt gtt off -cont BB, prn IV BB -cont sinemet -basal and SSI -cont home aldactone -pt/ot - -ppx: apixaban / home ppi DNR Time Spent With Patient Time: Total time spent is greater than 50% in coordination of care (as documented) at patient's floor/unit and/or counseling patient: QUALITY VTE Deep Vein Thrombosis/Pulmonary Embolism Present on Admission: No
[2021-07-26] MEDS ORDERED: POTASSIUM CHLORIDE 10 MEQ TABLET PO SCH (08:00)
[2021-07-26] MEDS: APIXABAN 5 MG TABLET PO SCH ×2 (08:41→22:22)
[2021-07-26] MEDS: SPIRONOLACTONE 25 MG TABLET PO SCH (08:41)
[2021-07-26] MEDS: DOCUSATE SODIUM 100 MG CAPSULE PO SCH ×2 (08:41→22:22)
[2021-07-26] MEDS: FENOFIBRATE 43 MG CAPSULE PO SCH (08:41)
[2021-07-26] MEDS: METOPROLOL SUCCINATE 50 MG TAB.XL.24H PO SCH (08:41)
[2021-07-26] MEDS: DEXAMETHASONE 4 MG TABLET PO SCH (08:42)
[2021-07-26] MEDS: CARBIDOPA/LEVODOPA CR 25/100 TABLET PO SCH ×2 (08:42→22:23)
[2021-07-26] MEDS: VITAMIN D3 1,000 UNIT TABLET PO SCH (08:43)
[2021-07-26] MEDS: PRAMIPEXOLE 0.25 MG TABLET PO SCH ×3 (08:43→22:24)
[2021-07-26] MEDS: INSULIN LISPRO 1 UNIT/0.01 ML UNIT SQ SCH ×4 (08:44→22:50)
[2021-07-26] MEDS ORDERED: FUROSEMIDE 20 MG TABLET PO SCH (09:00)
[2021-07-26] MEDS ORDERED: FENOFIBRATE 43 MG CAPSULE PO SCH (09:00)
[2021-07-26] MEDS ORDERED: METOPROLOL SUCCINATE 50 MG TAB.XL.24H PO SCH (09:00)
[2021-07-26] MEDS ORDERED: SPIRONOLACTONE 25 MG TABLET PO SCH (09:00)
[2021-07-26] MEDS ORDERED: DEXAMETHASONE 4 MG TABLET PO SCH (09:00)
[2021-07-26] MEDS ORDERED: VITAMIN D3 1,000 UNIT TABLET PO SCH (09:00)
[2021-07-26] MEDS: 0.9 % SODIUM CHLORIDE 250 ML IV SCH ×3 (09:08→22:22)
[2021-07-26] MEDS ORDERED: FUROSEMIDE 40 MG/4 ML VIAL IV ONE (09:52)
[2021-07-26] MEDS ORDERED: ALBUMIN HUMAN 12.5 GM/50 ML BAG IV ONE (09:52)
[2021-07-26] MEDS: INSULIN GLARGINE, HUMAN 1 UNIT/0.01 ML SQ SCH (10:35)
[2021-07-26] MEDS: HALOPERIDOL LACTATE 5 MG/ML VIAL IV PRN ×2 (12:18→13:44)
[2021-07-26] MEDS ORDERED: hydrOXYzine 50 MG/ML VIAL IM ONE (13:41)
[2021-07-26] MEDS: FERROUS SULFATE 325 MG TABLET PO SCH ×2 (13:45→17:39)
[2021-07-26] MEDS: REMDESIVIR 100 MG in 0.9 % SODIUM CHLORIDE 250 ML IV SCH (13:48)
[2021-07-26] MEDS ORDERED: REMDESIVIR 100 MG in 0.9 % SODIUM CHLORIDE 250 ML IV SCH (14:00)
[2021-07-26] MEDS: DEXMEDETOMIDINE 400 MCG in PREMIX 1 BAG IV SCH ×2 (16:43→23:12)
[2021-07-26] MEDS ORDERED: DILTIAZEM 125 MG in DEXTROSE 5% IN WATER 100 ML IV PRN (18:00)
[2021-07-26] MEDS ORDERED: HALOPERIDOL LACTATE 5 MG/ML VIAL IV ONE (20:40)
[2021-07-26] MEDS: ESCITALOPRAM 10 MG TABLET PO SCH (22:22)
[2021-07-26] MEDS: GABAPENTIN 300 MG CAPSULE PO SCH (22:22)
[2021-07-27] MEDS: INSULIN GLARGINE, HUMAN 1 UNIT/0.01 ML SQ SCH ×3 (01:03→21:51)
[2021-07-27] MEDS: HALOPERIDOL LACTATE 5 MG/ML VIAL IV PRN ×3 (02:43→22:53)
[2021-07-27] MEDS: DEXMEDETOMIDINE 400 MCG in PREMIX 1 BAG IV SCH ×7 (02:44→21:50)
[2021-07-27] MEDS: 0.9 % SODIUM CHLORIDE 250 ML IV SCH ×4 (05:18→21:52)
[2021-07-27] MEDS: 0.9 % SODIUM CHLORIDE 10 ML SYRINGE IV SCH ×3 (06:54→22:54)
--- NOTE | 2021-07-27 07:44 | Internal Med Progress Note ---
SUBJECTIVE Subjective Patient information: Note initiated : 07/27/21 at 7:42 am Service Date, if different from initiated Date: [] Patient: Shweta Rodriguez 75 y/o F admitted on 07/25/21 for SOB, Chest Pain. Chief Complaint: [] Interval history: History of present illness: Ms. Rodriguez is a 75 year old F Resents to the ED with shortness of breath and cough. This started on Friday. She says she does get occasionally short of breath because of her A. fib but discontinued on. She developed mild cough that was productive. And her symptoms continued to the point today she just could not move around because of shortness of breath she was. In the ED she was satting 86% on room air. She is now on 4 L and comfortable. Chest x-ray with bilateral infiltrates. Covid test was positive. She has not been vaccinated because her primary care doctor says she has a poor immune system and he was worried about her response to the vaccine. Mild headache. 07/26 Patient is on Vapotherm flow 60 with FiO2 of 100%. She appears comfortable at the moment and says she is breathing a lot better. Occasional cough. Review of Systems: denies headache/fever/chills/nausea/vomiting/chest or abdominal pain/diarrhea. Otherwise see above. Constitutional Vitals: Vital Signs Temp Pulse Resp BP Pulse Ox 98.7 F 68 27 H 132/101 95 07/27/21 07:00 07/27/21 07:00 07/27/21 07:00 07/27/21 07:00 07/27/21 07:29 Period Temp Pulse Resp BP Sys/Lopez Pulse Ox Last 24 Hr 86.6 F-98.7 F 53-145 16-31 91-150/48-113 75-97 Intake and Output 07/26/21 07/27/21 07/27/21 21:59 05:59 13:59 Intake Total 535 368 92 Output Total 1050 675 245 Balance -396 -552 -364 Weight 90.1 kg Intake & Output: Intake & Output 07/26/21 07/27/21 07/27/21 21:59 05:59 13:59 Intake Total 535 368 92 Output Total 1050 675 245 Balance -967 -307 -423 Weight 90.1 kg Intake: Nourishment/Supplement quantity 240 (ml) IV 295 368 92 Sodium Chloride 0.9% 250 ml @ 250 20 mls/hr IV .[id number] AMANDA Rx#: [id number] Precedex 400 Mcg/100 ml 45 118 92 Dextrose 400 Mcg In Premix 1 Bag @ 0.2 MCG/KG/HR 4.611 mls/ hr IV .[id number] AMANDA Rx#: [id number] Veklury 100 mg In Sodium 250 Chloride 0.9% 250 ml @ 500 mls/ hr IV Q24H AMANDA Rx#:[id number] Oral 0 Output: Urine Catheter Amount 1050 675 245 Other: Meal Nourishment/Supplement Percent of Meal Consumed 100% Urine Appearance Clear Clear Clear Sediment Urine Color Bright Yellow Pale Pale Exam: General: sedated, Awake, No acute Distress, obese Eyes/N/T: EOMI, Head/Neck: neck supple, CV: irreg irreg, 3/6SM Pulm: fine rales b/l, some rhonchi, no wheezing Abd: soft, nontender, +BS x4 Ext: no clubbing/cyanosis, trace b/l LE edema Neuro: sedated, no focal deficits, moves all extremities, Skin: warm/dry OBJ DATA Labs CBC & Chem 7: 07/27/21 05:26 07/27/21 05:27 Labs: Abnormal Lab Results 07/26/21 07/26/21 07/25/21 05:33 05:33 12:35 WBC 3.1 L RBC Hct 47.0 H MCHC 30.6 L MPV 10.5 H Neut % (Auto) 78.6 H Lymph % (Auto) 15.3 L Lymph # (Auto) 0.48 L Sodium Chloride Carbon Dioxide Anion Gap Glucose 283 H Magnesium 1.4 L Ferritin AST 33 H Lactate Dehydrogenase 466 H C-Reactive Protein Albumin 2.7 L Globulin Albumin/Globulin Ratio 0.7 L Procalcitonin 0.11 H 07/25/21 07/25/21 07/25/21 12:31 12:31 10:35 WBC RBC 5.61 H Hct 47.8 H MCHC MPV 11.2 H Neut % (Auto) 85.3 H Lymph % (Auto) 8.7 L Lymph # (Auto) 0.57 L Sodium 131 L Chloride 88 L Carbon Dioxide 20 L Anion Gap 23.0 H Glucose 280 H Magnesium Ferritin 1970.0 H AST 45 H Lactate Dehydrogenase C-Reactive Protein 20.90 H Albumin Globulin 4.0 H Albumin/Globulin Ratio 0.9 L Procalcitonin Meds: Medications Acetaminophen (Acetaminophen 325 Mg Tablet) 650 mg PO Q6HP PRN PRN Reason: PAIN/FEVER > 101 Albuterol/Ipratropium (Ipratropium/Albuterol 3 Ml Ampul.Neb) 3 ml NEB Q4HP PRN PRN Reason: Shortness Of Breath Apixaban (Apixaban 5 Mg Tablet) 5 mg PO BID [facility] Last Admin: 07/26/21 22:22 Dose: Not Given Documented by: Carbidopa/Levodopa (Carbidopa/Levodopa Cr 25/100 Tablet) 2 tab PO BID [facility] Last Admin: 07/26/21 22:23 Dose: Not Given Documented by: Dexamethasone (Dexamethasone 4 Mg Tablet) 6 mg PO DAILY [facility] Last Admin: 07/26/21 08:42 Dose: 6 mg Documented by: Dextrose (Dextrose 50% 50 Ml Vial) 0 ml IV UD PRN PRN Reason: Hypoglycemia Diagnostic Test (Pha) (Accu-Chek 1 Each Strip) 1 each FS ACHS [facility] Last Admin: 07/27/21 07:03 Dose: 1 each Documented by: Docusate Sodium (Docusate Sodium 100 Mg Capsule) 100 mg PO BID [facility] Last Admin: 07/26/21 22:22 Dose: Not Given Documented by: Escitalopram Oxalate (Escitalopram 10 Mg Tablet) 10 mg PO [facility] Last Admin: 07/26/21 22:22 Dose: Not Given Documented by: Fenofibrate (Fenofibrate 43 Mg Capsule) 129 mg PO DAILY [facility] Last Admin: 07/26/21 08:41 Dose: 129 mg Documented by: Ferrous Sulfate (Ferrous Sulfate 325 Mg Tablet) 325 mg PO BID@1200,1730 [facility] Last Admin: 07/26/21 17:39 Dose: Not Given Documented by: Gabapentin (Gabapentin 300 Mg Capsule) 300 mg PO [facility] Last Admin: 07/26/21 22:22 Dose: Not Given Documented by: Glucose (Dextrose 31 Gm Oral.Susp) 15 gm PO PRN PRN PRN Reason: Hypoglycemia Haloperidol Lactate (Haloperidol Lactate 5 Mg/Ml Vial) 2.5 - 5 mg IV Q8HP PRN PRN Reason: ANXIETY/SEDATION Last Admin: 07/27/21 02:43 Dose: 2.5 mg Documented by: Diltiazem HCl 125 mg/ Dextrose 125 mls @ 5 mls/hr IV Q24HP PRN; Protocol PRN Reason: Tachyarrhythmias Sodium Chloride (Sodium Chloride 0.9%) 250 mls @ 20 mls/hr IV .[id number] [facility] Last Admin: 07/26/21 22:22 Dose: Not Given Documented by: Magnesium Sulfate (Magnesium Sulfate) 2 gm in 50 mls @ 50 mls/hr IV UD PRN PRN Reason: Magnesium </= 1.6 REMDESIVIR 100 mg/ Sodium (Chloride) 250 mls @ 500 mls/hr IV Q24H [facility] Stop: 07/29/21 14:29 Last Infusion: 07/26/21 14:39 Dose: Infused Documented by: Dexmedetomidine HCl 400 mcg/ (Premix) 100 mls @ 4.611 mls/hr IV .[id number] [facility]; Protocol Last Admin: 07/27/21 06:44 Dose: 1.2 mcg/kg/hr, 27.666 mls/hr Documented by: Sodium Chloride (Sodium Chloride 0.9%) 250 mls @ 20 mls/hr IV .[id number] [facility] Last Admin: 07/27/21 05:18 Dose: 20 mls/hr Documented by: Insulin Glargine (Insulin Glargine, Human 1 Unit/0.01 Ml) 80 unit SQ BID [facility] Last Admin: 07/27/21 01:03 Dose: Not Given Documented by: Insulin Human Lispro (Insulin Lispro 1 Unit/0.01 Ml Unit) 0 unit SQ ACHS [facility]; Protocol Last Admin: 07/26/21 22:50 Dose: Not Given Documented by: Metoprolol Succinate (Metoprolol Succinate 50 Mg Tab.Xl.24h) 50 mg PO DAILY [facility] Last Admin: 07/26/21 08:41 Dose: 50 mg Documented by: Metoprolol Tartrate (Metoprolol Tartrate 5 Mg/5 Ml Vial) 5 mg IV Q2HP PRN PRN Reason: Tachyarrhythmias HR>110 Ondansetron HCl (Ondansetron 4 Mg/2 Ml Vial) 4 mg IV Q4HP PRN PRN Reason: Nausea And Vomiting Oxycodone/Acetaminophen (Oxycodone/Apap 5/325mg Tablet) 1 tab PO Q4HP PRN; Protocol PRN Reason: Per Pain Protocol Last Admin: 07/25/21 21:49 Dose: 1 tab Documented by: Pantoprazole Sodium (Pantoprazole 40 Mg Tablet) 40 mg PO AC [facility] Last Admin: 07/26/21 17:39 Dose: Not Given Documented by: Polyethylene Glycol (Polyethylene Glycol 3350 17 Gm Packet) 17 gm PO DAILYP PRN PRN Reason: Constipation Potassium Chloride (Potassium Chloride 20 Meq Tablet) 40 meq PO UD PRN PRN Reason: Potssium is 3-3.5 Potassium Chloride (Potassium Chloride 20 Meq Tablet) 40 meq PO UD PRN PRN Reason: Potassium < 3 Pramipexole Dihydrochloride (Pramipexole 0.25 Mg Tablet) 0.5 mg PO TID [facility] Last Admin: 07/26/21 22:24 Dose: Not Given Documented by: Senna (Sennosides 1 Tablet) 2 tab PO DAILYP PRN PRN Reason: Constipation Sodium Chloride (0.9 % Sodium Chloride 10 Ml Syringe) 10 ml IV Q8 [facility] Last Admin: 07/27/21 06:54 Dose: Not Given Documented by: Spironolactone (Spironolactone 25 Mg Tablet) 25 mg PO DAILY [facility] Last Admin: 07/26/21 08:41 Dose: 25 mg Documented by: Vitamin D (Vitamin D3 1,000 Unit Tablet) 4,000 unit PO DAILY [facility] Last Admin: 07/26/21 08:43 Dose: 4,000 unit Documented by: A/P Narrative A/P Narrative: A: *covid PNA w/ARDS: *Acute hypoxic Resp Failure: -requiring bipap currently at 95%fio2 *Afib w/rvr: on toprol/eliquis at home *Hyponatremia, mild chronic: improved *DM w/neuropathy: *RADHA: *Chronic pancreatitis: Follows with Dr. Patel in [place] -chronic pain on narcotics *Parkinson's: on Sinemet, follows with Dr. Baker *HTN: on BB/aldactone *GERD: *Depression: *KEAGAN P: -guarded prognosis -bipap and precedex currently, attempt to wean to vapotherm then d/c sedation -Family discussions, if unable to wean back to vapotherm then family may transtion to comfort care -Rem/Dexa, s/p Tocilizumab -prone/mobilization/oob to chair -prn nebs -dilt gtt off, cont BB, prn IV BB -cont sinemet -basal and SSI -cont home aldactone -pt/ot -ppx: apixaban / home ppi DNR/DNR Time Spent With Patient Time: Total time spent is greater than 50% in coordination of care (as documented) at patient's floor/unit and/or counseling patient: QUALITY VTE Deep Vein Thrombosis/Pulmonary Embolism Present on Admission: No
[2021-07-27 07:59] LABS: ALT/SGPT 21 U/L (<40); AST/SGOT 38 U/L (<32); Albumin 2.9 gm/dL (3.2-5.2); Albumin/Globulin Ratio 0.9 (1.0-2.3); Alkaline Phosphatase 69 U/L (39-117); Bilirubin,Direct < 0.2 mg/dL (0-0.3); Bilirubin,Total 0.4 mg/dL (0.1-1.0); Blood Urea Nitrogen 26 mg/dL (8-23); Calcium 8.6 mg/dL (8.6-10.4); Carbon Dioxide 25 mmol/L (22-30); Chloride 93 mmol/L (96-108); Globulin 3.3 gm/dL (2.2-3.7); Glomerular Filtration Rate 84; Glucose 225 mg/dL (70-105); Lactate Dehydrogenase 669 U/L (135-225); Phosphorous 2.1 mg/dL (2.5-4.5); Triglycerides 153 mg/dL (<150); Uric Acid 5.1 mg/dL (2.5-8.0)
[2021-07-27 08:06] LABS: Basophils # (Auto) 0.01 K/mcL (0.00-0.30); Basophils % (Auto) 0.1 % (0.0-2.0); Eosinophils # (Auto) 0 K/mcL (0.00-0.70); Eosinophils % (Auto) 0 % (0.0-7.0); Hematocrit 47.1 % (34.1-44.9); Lymphocytes # (Auto) 0.65 K/mcL (1.50-4.80); Lymphocytes % (Auto) 8.8 % (15.5-49.0); Mean Cell Volume 84.4 fL (80.0-100.0); Mean Corpuscular HGB Conc 31.8 g/dL (31.0-36.0); Mean Platelet Volume 10.7 fL (7.4-10.4); Monocytes # (Auto) 0.24 K/mcL (0.10-0.90); Monocytes % (Auto) 3.3 % (1.0-12.0); Neutrophils % (Auto) 87.8 % (38.0-78.0); Platelet Count 219 K/mcL (140-440); RBC 5.58 M/mcL (3.59-5.38); WBC 7.4 K/mcL (4.5-11.0)
[2021-07-27] MEDS: INSULIN LISPRO 1 UNIT/0.01 ML UNIT SQ SCH ×4 (08:35→21:50)
[2021-07-27] MEDS ORDERED: MAGNESIUM SULFATE 2 GM/50 ML BAG IV ONE (08:56)
[2021-07-27] MEDS: PANTOPRAZOLE 40 MG TABLET PO SCH ×4 (09:15→16:54)
[2021-07-27] MEDS: VITAMIN D3 1,000 UNIT TABLET PO SCH (09:16)
[2021-07-27] MEDS: 0.9 % SODIUM CHLORIDE 1,000 ML IV SCH ×2 (09:18→22:54)
[2021-07-27] MEDS: FENOFIBRATE 43 MG CAPSULE PO SCH (10:19)
[2021-07-27] MEDS: METOPROLOL SUCCINATE 50 MG TAB.XL.24H PO SCH (10:19)
[2021-07-27] MEDS: APIXABAN 5 MG TABLET PO SCH ×2 (10:19→20:33)
[2021-07-27] MEDS: CARBIDOPA/LEVODOPA CR 25/100 TABLET PO SCH ×2 (10:20→20:34)
[2021-07-27] MEDS: DEXAMETHASONE 4 MG TABLET PO SCH (10:20)
[2021-07-27] MEDS: SPIRONOLACTONE 25 MG TABLET PO SCH (10:20)
[2021-07-27] MEDS: PRAMIPEXOLE 0.25 MG TABLET PO SCH ×3 (10:21→20:34)
[2021-07-27] MEDS: DOCUSATE SODIUM 100 MG CAPSULE PO SCH ×2 (10:22→20:32)
[2021-07-27] MEDS: FERROUS SULFATE 325 MG TABLET PO SCH ×2 (11:04→16:54)
[2021-07-27] MEDS: oxyCODONE/APAP 5/325MG TABLET PO PRN (12:57)
[2021-07-27] MEDS: REMDESIVIR 100 MG in 0.9 % SODIUM CHLORIDE 250 ML IV SCH (13:01)
[2021-07-27] MEDS: ESCITALOPRAM 10 MG TABLET PO SCH (20:33)
[2021-07-27] MEDS: GABAPENTIN 300 MG CAPSULE PO SCH (20:34)
[2021-07-27] MEDS ORDERED: ACETAMINOPHEN 650 MG/65 ML BAG IV PRN (21:03)
[2021-07-28] MEDS: DEXMEDETOMIDINE 400 MCG in PREMIX 1 BAG IV SCH (00:19)
--- NOTE | 2021-07-28 08:42 | Death Note ---
Discharge Sum: Prov Provider Patient information: Note initiated : 07/28/21 at 8:40 am Service Date, if different from initiated Date: [] Patient: Shweta Rodriguez 75 y/o F admitted on 07/25/21 for SOB, Chest Pain. Chief Complaint: [CoVID pneumonia] Primary care physician: Warner San Consults: 07/25/21 Consult to Physician [CONS] Stat Comment: Consulting Provider: Michael Kaur Reason For Exam: Physician to Consult Discharge Sum: Summary Date and Time Date of admission: 07/25/21 14:58 Date of : 07/28/21 Time of : 05:45 Summary Details: Patient became tachycardic, rate of breathing gradually went down, and patient became unresponsive. Because patient was DNI DNR, no code was called and patient's peacefully . Additional Data Confirmation of as documented by pronouncing clinician: no pulse and no respirations Attending physician: Moy Silva Was code activated?: No Autopsy requested?: No
--- NOTE | 2021-07-31 12:50 | EKG ---
[facility] Test Date: 2021-07-25 Pat Name: Shweta Rodriguez Department: ICU Room: 120D Gender: Female [employer]: JOHN : 1945 Requested By: Michael Kaur Order Number: [id number] Reading MD: Adryan Kee Measurements Intervals [place] Rate: 159 P: MT: QRS: 48 QRSD: 78 T: 231 QT: 252 QTc: 410 Interpretive Statements AGE IS NOT ENTERED, ASSUMED TO BE 50 YEARS OLD FOR PURPOSE OF ECG INTERPRETATION ATRIAL FIBRILLATION, RVR LOW VOLTAGE THROUGHOUT REPOL ABNRM DIFFUSE LEADS Electronically Signed On 07-31-2021 12:49:55 PDT by Adryan Kee /[email or web address]/[id number]
--- NOTE | 2021-08-01 19:52 | EKG ---
[facility] Test Date: 2021-07-27 Pat Name: Shweta Rodriguez Department: ICU Room: 120D Gender: Female [place] Measurer: : 1945 Requested By: Michael Kaur Order Number: [id number] Reading MD: Adryan Kee Measurements Intervals [place] Rate: 90 P: [place]: QRS: 3 QRSD: 84 T: 68 QT: 388 QTc: 475 Interpretive Statements ATRIAL FIBRILLATION, V-RATE 78-112 Compared to prior rate is now controlled Electronically Signed On 08-01-2021 19:51:49 PDT by Adryan Kee /store/[email or web address]/[id number]
== END 2021-07-28 03:36 | disposition expired | DRG 177 ==
LOC: ED 09:31 → ICU 14:58
PROVIDERS: ADMIT Internal Medicine; ATTEND Internal Medicine